=== PATIENT | female | born 1945 | race Caucasian/White ===

== ENCOUNTER → 2018-03-29 16:52 | Outpatient (CLI) | payer MEDICARE, SELFPAY | PROVIDERS: Family Provider Internal Medicine; PCP Internal Medicine; Visit Provider Otolaryngology Otolaryngology/Facial Plastic Surgery | DX: J02.9 Acute pharyngitis, unspecified (principal) | CPT/HCPCS: 87070; 87077; 87186 ==

== ENCOUNTER → 2018-05-05 15:48 | Outpatient (CLI) | payer MEDICARE, OTHER, SELFPAY ==
[2018-05-05 11:59] LABS: Absolute Lymphocyte Count 1.93 X10^3/ul (0.83-4.51); Absolute Neutrophil Count 4.3 X10^3/uL (2.0-7.7); Basophil# 0.02 X10^3/uL; Basophil% 0.3 % (0-1); Eosinophil# 0.03 X10^3/uL; Eosinophils% 0.4 % (0-5); Hematocrit 43.1 % (37-47); Lymphocyte # 1.93 X10^3/ul (4.0); Lymphocyte % 28.3 % (19-41); Mean Corp Hgb Conc 32.5 g/gl (32-36); Mean Corpuscular Volume 95.6 fL (81-99); Monocyte% 7.3 % (0-10); Neutrophil # 4.33 X10^3/uL (2.7-7.7); Neutrophil % 63.6 % (47-70); Platelet Count 238 K/mm3 (150-450); RBC Distribution Width CV 14.6 % (11.6-14.6); RBC Distribution Width SD 49.3 fl (35.1-43.9); Red Blood Count 4.51 M/mm3 (4.2-5.4); White Blood Count 6.8 K/mm3 (4.4-11.0)
[2018-05-05 12:00] LABS: POSITIVE COUNT NO; POSITIVE DIFFERENTIAL NO; POSITIVE MORPHOLOGY NO
[2018-05-05 12:21] LABS: Erythrocyte Sedimentation Rate 17 mm/hr (0-30)
[2018-05-05 12:32] LABS: CRP < 2.90 mg/L (0.0-3.0)
[2018-05-05 16:06] LABS: CREATININE FINGERSTICK 0.7 mg/dL (0.55-1.02); EGFR FINGERSTICK > 60.0000 mL/min (>60)
== END ==
PROVIDERS: Family Provider Internal Medicine; PCP Internal Medicine; Visit Provider Specialist
DX: H92.01 Otalgia, right ear (principal); R13.10 Dysphagia, unspecified; Z96.651 Presence of right artificial knee joint
CPT/HCPCS: 36415; 70491; 85025; 85652; 86140; Q9967

== ENCOUNTER → 2018-05-16 09:38 | Outpatient (CLI) | payer MEDICARE, OTHER, SELFPAY ==
[2018-05-16 11:11] LABS: Hematocrit 41.9 % (37-47); Hemoglobin 13.7 g/dl (12.0-15.0); Mean Corp Hgb Conc 32.7 g/gl (32-36); Mean Corpuscular Hgb 31.5 pg (27.0-32.0); Mean Corpuscular Volume 96.3 fL (81-99); Mean Platelet Vol. 10.2 fl (6.2-12.0); Platelet Count 212 K/mm3 (150-450); RBC Distribution Width CV 14.6 % (11.6-14.6); RBC Distribution Width SD 49.7 fl (35.1-43.9); Red Blood Count 4.35 M/mm3 (4.2-5.4); White Blood Count 5.8 K/mm3 (4.4-11.0)
[2018-05-16 11:22] LABS: Scan Indicated on CBC? Y/N NO
[2018-05-16 11:43] LABS: Anion Gap 11 (5-15); BUN 17 mg/dL (7-18); BUN/Creat Ratio 27.7 RATIO (10-20); Chloride 105 mmol/L (98-107); Creatinine, Serum 0.61 mg/dL (0.55-1.02); EST Glomerular Filtration Rate 102 mL/min (>60); Est Glom Filt Rate - Afr Amer 123 mL/min (>60); Glucose 87 mg/dL (74-106); Potassium 3.9 mmol/L (3.5-5.1); Sodium Level 144 mmol/L (136-145)
== END ==
PROVIDERS: Family Provider Internal Medicine; PCP Internal Medicine; Visit Provider Otolaryngology
DX: Z01.818 Encounter for other preprocedural examination (principal)
CPT/HCPCS: 36415; 80048; 85027; 93005

== ENCOUNTER → 2018-05-22 08:56 | Outpatient (CLI) | payer MEDICARE, OTHER, SELFPAY ==
--- NOTE | 2018-05-22 | IMM_PTH ---
PATIENT: KENRICK ORTIZ LOC: [facility] U#:[id number] AGE/SX: 79/F ROOM: RE05/22/[address]: Dr. Caden Yeboah MD : 1945 BED: DIS: SPEC #: [id number] RECD: 05/23/18 14:35 STATUS: JULIAN LILIAN #: [id number] PHANI: 05/22/18 00:[address]: Caden Yeboah DEPT: IMMUNOHISTOCHEMISTRY RECD BY: Martha Barragan ENTERED: 05/23/18 14:36 SP TYPE: IMMUNO OTHR DR: Dr. Rusty Woodard MD Tissues: A - Tonsil, NOS Procedures: p16 (initial) PHYSICIAN & INSTITUTION [place] [id number] SPECIMEN INFORMATION: Tissue Source: A - Right tonsil Clinical Info: Pain in throat, right ear pain, hypertrophy of tonsils Specimen Number: [id number] CPT code: 15698 METHODOLOGY: Deparaffinized sections of prefer/formalin-fixed tissue or PAP/DQ stained slides are incubated with monoclonal/polyclonal antibodies/oligonucleotide probes. Localization is made via biotin free immunoperoxidase method. Appropriate controls are performed and reacted as expected. Results on target cell population are indicated in the following table: RESULTS: ANTIBODY / CLONE RESULT Block A P16 (E6H4) positive, block staining These tests were developed and their performance characteristics determined by [facility]. They may not have been cleared or approved by the U.S. Food and Drug Administration. The FDA has determined that such clearance or approval is not necessary. INTERPRETATION: A. Right tonsil: Invasive squamous cell carcinoma. SJ:hong 05/24/18
--- NOTE | 2018-05-22 08:56 | TONS_PTH ---
PATIENT: KENRICK ORTIZ LOC: [facility] U#:[id number] AGE/SX: 79/F ROOM: RE05/22/[address]: Dr. Caden Yeboah MD : 1945 BED: DIS: SPEC #: [id number] RECD: 05/22/18 10:01 STATUS: JULIAN HELTONIdania #: [id number] PHANI: 05/22/18 08:[address]: Caden Yeboah DEPT: SURGICAL PATHOLOGY RECD BY: Brooke Dubose ENTERED: 05/22/18 11:01 SP TYPE: TONSILS OTHR DR: Dr. Rusty Woodard MD [facility] Tissues: A - Tonsil, NOS B - Tonsil, NOS Procedures: Surgery Specimen Level III Surgery Specimen Level IV HEADER OPERATION: Tonsillectomy PRE-OP DIAGNOSIS: Pain in throat, right ear pain, hypertrophy of tonsils TISSUE SUBMITTED: A. Right tonsil, B. Left tonsil MICROSCOPIC DIAGNOSIS A. Right tonsil: Invasive moderately differentiated squamous cell carcinoma. See comment. B. Left tonsil: Reactive lymphoid hyperplasia. SJ:rg 05/23/18 COMMENT A. Results of immunohistochemistry ([id number]) for surrogate HPV marker (p16) will be reported separately. This case is discussed with Dr. Caden Yeboah on 05/23/18. MICROSCOPIC DESCRIPTION Slides are reviewed. GROSS DESCRIPTION A - Received in formalin labeled with the patient's name and designated right tonsil. The specimen consists of a tonsil that weighs 1.7 gm. The specimen is received in multiple pieces and measures in aggregate 2 x 1 x 1 cm. The external surface is pink-mccall, smooth, glistening and somewhat lobulated. Focally it is hemorrhagic, granular and bears cautery artifact. Serial cross sections through the tonsil do not reveal any mass lesions. The entire specimen is submitted in one cassette. B - Received in formalin labeled with the patient's name and designated left tonsil. The specimen consists of a tonsil that weighs 1.4 gm and measures 2 x 1 x 1 cm. The external surface is pink-mccall, smooth, glistening and somewhat lobulated. Focally it is hemorrhagic, granular and bears cautery artifact. Serial cross sections through the tonsil reveal normal tonsillar architecture. The entire specimen is submitted in one cassette. / SJ:rg 05/22/18 TC:0 CPT: 56899, 59383
== END ==
PROVIDERS: Family Provider Internal Medicine; PCP Internal Medicine; Visit Provider Otolaryngology
DX: J35.1 Hypertrophy of tonsils (principal); J02.9 Acute pharyngitis, unspecified; H92.01 Otalgia, right ear
CPT/HCPCS: 88304; 88305; 88342

== ENCOUNTER → 2018-06-05 09:12 | Outpatient (CLI) | payer MEDICARE, OTHER, SELFPAY ==
--- NOTE | 2018-06-05 06:59 | PET_ITS ---
EXAMINATION: FDG PET CT INDICATIONS: A 72-year-old female with history of head and neck carcinoma presenting for initial staging examination. COMPARISON EXAMINATION: CT of the neck report dated 05/04/18. INDEX LESION SIZE SUV INTERPRETATION Right pharyngeal mucosal space, palatine tonsil 15.0 mm x 18.9 mm (frame 238) 7.8 Most consistent with site of histologically confirmed primary head and neck malignancy-normal postsurgical change in the setting of clear histopathologic margins TECHNIQUE: Following the intravenous administration of 15.02 mCi of F-18 deoxyglucose via the left antecubital fossa, multiplanar image acquisitions of the neck, chest, abdomen and pelvis to level of mid thigh, obtained at one hour post radiopharmaceutical administration contemporaneously interpreted with the current CT of the neck, chest, abdomen and pelvis to level of mid thigh, dated 06/05/[address] of the neck report dated 05/04/18 reveal: SERUM GLUCOSE LEVEL: 64 mg/dl. HEIGHT: 63 inches. WEIGHT: 142 lbs. FINDINGS: 1. Asymmetric increased glucose metabolism is defined in the right pharyngeal mucosal space in the region of the tonsillar pillar-palatine tonsil. The calculated maximum standard uptake value is 7.8. The maximal axial diameter of the corresponding metabolic abnormality on review of CT of the head-neck dated 06/05/18 is 15.0 mm (transverse) x 18.9 mm (AP). 2. Normal physiologic distribution of the radiopharmaceutical is apparent in the hepatic (2.6) and splenic parenchyma, both renal units, bladder and visualized intestinal tract. There is uniform distribution of the radiopharmaceutical concentration defined in the visualized cerebellar hemispheres and cerebral cortical structures.? Diffuse intestinal tract activity is noted throughout all four quadrants of the abdominal-pelvic retroperitoneum, mesentery consistent with normal physiologic distribution of the radiopharmaceutical. Prominent glucose metabolism is defined in the ascending and descending thoracic, as well as abdominal aorta. An increase in glucose metabolism is manifest in the left pharyngeal mucosal space, tonsillar pillar most consistent with physiologic distribution of the radiopharmaceutical. Focal increased glucose concentration is defined in the right proximal humeral metaphysis-humeral head, which appears to correspond to subchondral bone cyst formation. Pertinent CT findings are as follows. CHEST: Emphysematous change is noted in the bilateral upper lung zones. There are no parenchymal densities-nodules noted in the right-left hemithorax demonstrating discernible, quantitatively significant increased glucose metabolism. Right-left axillary soft tissue densities demonstrate no evidence of facilitated glucose uptake. Atherosclerotic calcification is defined in the thoracic aorta without evidence of dilatation, aneurysm formation. ABDOMEN AND PELVIS: Atherosclerotic calcification is defined in the abdominal aorta without evidence of dilatation, aneurysm formation. Pelvic arterial calcification is observed. Colonic diverticulosis is defined. Apparent postsurgical change is noted in the lower pelvic mesentery without evidence of quantitatively significant increased glucose metabolism. Right-left inguinal soft tissue densities are ametabolic. The uterus appears surgically absent. SKELETAL: Degenerative changes defined in the cervical, thoracic and lumbar spine demonstrate no evidence for glucose hypermetabolism. PET/PET/CT Tumor Base -Thigh Init IMPRESSION: 1. Increased glucose concentration observed in the right pharyngeal mucosal space, distribution of the palatine tonsil is most consistent with postsurgical change in the setting of presumed clear histopathologic margins. 2. Prominent glucose concentration observed in the ascending and descending thoracic, as well as abdominal aorta is commensurate with activated leukocytes associated with atherosclerotic plaque formation. (Gabbie et al, Clinical Nuclear Medicine 29:93, 2004). 3. No other quantitatively significant hypermetabolic abnormalities are defined. There is no definitive scintigraphic evidence of distant metastatic disease. Electronic Signature Sean Wing D.O. Electronically Signed: Sean Wing DO at 23:45 EDT Tel , Service support ,
== END ==
PROVIDERS: Family Provider Internal Medicine; PCP Internal Medicine; Visit Provider Otolaryngology
DX: C09.9 Malignant neoplasm of tonsil, unspecified (principal)
CPT/HCPCS: 78815; A9552

== ENCOUNTER → 2018-06-22 12:03 | Outpatient (CLI) | payer MEDICARE, OTHER, SELFPAY ==
[2018-06-22 13:21] LABS: Absolute Lymphocyte Count 1.62 X10^3/ul (0.83-4.51); Absolute Neutrophil Count 5.2 X10^3/uL (2.0-7.7); Basophil# 0.03 X10^3/uL; Basophil% 0.4 % (0-1); Eosinophil# 0.05 X10^3/uL; Eosinophils% 0.7 % (0-5); Hematocrit 43.9 % (37-47); Hemoglobin 14.3 g/dl (12.0-15.0); Lymphocyte # 1.62 X10^3/ul (4.0); Lymphocyte % 21.7 % (19-41); Mean Corp Hgb Conc 32.6 g/gl (32-36); Mean Corpuscular Hgb 31.4 pg (27.0-32.0); Mean Corpuscular Volume 96.5 fL (81-99); Mean Platelet Vol. 10.3 fl (6.2-12.0); Monocyte# 0.57 X10^3/uL; Monocyte% 7.6 % (0-10); Neutrophil # 5.18 X10^3/uL (2.7-7.7); Neutrophil % 69.5 % (47-70); Platelet Count 250 K/mm3 (150-450); RBC Distribution Width CV 14.4 % (11.6-14.6); RBC Distribution Width SD 50.2 fl (35.1-43.9); Red Blood Count 4.55 M/mm3 (4.2-5.4); White Blood Count 7.5 K/mm3 (4.4-11.0)
[2018-06-22 13:22] LABS: POSITIVE COUNT NO; POSITIVE DIFFERENTIAL NO; POSITIVE MORPHOLOGY NO
[2018-06-22 13:45] LABS: Creatinine, Serum 0.58 mg/dL (0.55-1.02); EST Glomerular Filtration Rate 109 mL/min (>60); Est Glom Filt Rate - Afr Amer 132 mL/min (>60)
== END ==
PROVIDERS: Family Provider Internal Medicine; PCP Internal Medicine; Referring Provider Radiology Radiation Oncology; Visit Provider Radiology Radiation Oncology
DX: Z01.818 Encounter for other preprocedural examination (principal); C02.4 Malignant neoplasm of lingual tonsil
CPT/HCPCS: 36415; 82565; 85025

== ENCOUNTER → 2018-06-23 08:34 | Outpatient (CLI) | payer MEDICARE, OTHER, SELFPAY ==
--- NOTE | 2018-06-23 08:40 | CT_ITS ---
STUDY: CT SOFT TISSUE NECK WITH AND WITHOUT CONTRAST REASON FOR EXAM: Female, 72 years old. History of squamous cell tonsillar cancer. Radiation therapy planning. RADIATION DOSAGE (If Supplied By Facility): CTDIvol = ( 9.34 ) mGy, DLP = ( 693.20 ) mGycm TECHNIQUE: The patient was scanned in a multi-detector CT scanner. High resolution transaxial imaging was performed prior to and following intravenous administration of 75ML ml of Isovue 300 contrast material. Only axial images were obtained. The examination was performed for radiation therapy planning and therefore is limited. Individualized dose optimization techniques were used for this CT. COMPARISON: 05/05/2018. FINDINGS: Normal bilateral parotid glands. Normal bilateral party host spaces. Normal bilateral parapharyngeal spaces. Normal bilateral carotid spaces. Normal bilateral sublingual and submandibular glands and spaces. Normal visualized nasopharynx. Normal retropharyngeal space. Normal perivertebral space. Minimal prominence of the right oral tonsil compared to the left side but no focal mass is definitely seen. The visualized tongue, tongue base and oropharynx are normal. There is no demonstrated adenopathy on the axial images. The epiglottis appears to be unremarkable. The region of the larynx is grossly unremarkable. Normal subglottic trachea. Normal bilateral lobes of the thyroid gland. Visualized lung apices demonstrate no focal lesion. Normal visualized paranasal sinuses. CT/Soft Tissue Neck W/WO Contrast IMPRESSION: Limited examination obtained for radiation therapy planning. Mild asymmetric prominence of the right oral tonsil compared to the left side. Electronically Signed: Sivakumar Marie MD at 9:11 EDT Tel , Service support ,
== END ==
PROVIDERS: Family Provider Internal Medicine; PCP Internal Medicine; Referring Provider Radiology Radiation Oncology; Visit Provider Radiology Radiation Oncology
DX: C02.4 Malignant neoplasm of lingual tonsil (principal)
CPT/HCPCS: 70492; Q9967

== ENCOUNTER → 2018-07-17 09:57 | Outpatient (CLI) | payer MEDICARE, OTHER, SELFPAY ==
[2018-07-17 11:25] LABS: Absolute Lymphocyte Count 0.68 X10^3/ul (0.83-4.51); Absolute Neutrophil Count 4.3 X10^3/uL (2.0-7.7); Basophil# 0.02 X10^3/uL; Basophil% 0.4 % (0-1); Eosinophil# 0.06 X10^3/uL; Eosinophils% 1.1 % (0-5); Hematocrit 42.8 % (37-47); Hemoglobin 13.9 g/dl (12.0-15.0); Lymphocyte # 0.68 X10^3/ul (4.0); Mean Corp Hgb Conc 32.5 g/gl (32-36); Mean Corpuscular Hgb 31.4 pg (27.0-32.0); Mean Corpuscular Volume 96.8 fL (81-99); Mean Platelet Vol. 10.3 fl (6.2-12.0); Monocyte# 0.57 X10^3/uL; Monocyte% 10.1 % (0-10); Neutrophil # 4.33 X10^3/uL (2.7-7.7); Neutrophil % 76.2 % (47-70); Platelet Count 218 K/mm3 (150-450); RBC Distribution Width SD 48.9 fl (35.1-43.9); Red Blood Count 4.42 M/mm3 (4.2-5.4); White Blood Count 5.7 K/mm3 (4.4-11.0)
[2018-07-17 11:31] LABS: POSITIVE COUNT NO; POSITIVE DIFFERENTIAL NO; POSITIVE MORPHOLOGY NO
== END ==
PROVIDERS: Family Provider Internal Medicine; PCP Internal Medicine; Referring Provider Radiology Radiation Oncology; Visit Provider Radiology Radiation Oncology
DX: C09.9 Malignant neoplasm of tonsil, unspecified (principal)
CPT/HCPCS: 36415; 85025

== ENCOUNTER → 2018-08-07 09:34 | Outpatient (CLI) | payer MEDICARE, OTHER, SELFPAY ==
[2018-08-07 10:35] LABS: Absolute Lymphocyte Count 0.37 X10^3/ul (0.83-4.51); Absolute Neutrophil Count 4.2 X10^3/uL (2.0-7.7); Basophil# 0.01 X10^3/uL; Basophil% 0.2 % (0-1); Differential Indicated SCAN CRITERIA MET; Eosinophil# 0.04 X10^3/uL; Eosinophils% 0.8 % (0-5); Hematocrit 43.5 % (37-47); Hemoglobin 14.3 g/dl (12.0-15.0); Lymphocyte # 0.37 X10^3/ul (4.0); Lymphocyte % 7.3 % (19-41); Mean Corp Hgb Conc 32.9 g/gl (32-36); Mean Corpuscular Hgb 31.4 pg (27.0-32.0); Mean Corpuscular Volume 95.6 fL (81-99); Mean Platelet Vol. 9.5 fl (6.2-12.0); Monocyte# 0.53 X10^3/uL; Monocyte% 10.4 % (0-10); Neutrophil # 4.15 X10^3/uL (2.7-7.7); Neutrophil % 81.3 % (47-70); POSITIVE COUNT NO; POSITIVE DIFFERENTIAL YES; POSITIVE MORPHOLOGY NO; Platelet Count 207 K/mm3 (150-450); RBC Distribution Width CV 13.7 % (11.6-14.6); RBC Distribution Width SD 47.5 fl (35.1-43.9); Red Blood Count 4.55 M/mm3 (4.2-5.4); White Blood Count 5.1 K/mm3 (4.4-11.0)
== END ==
PROVIDERS: Family Provider Internal Medicine; PCP Internal Medicine; Referring Provider Radiology Radiation Oncology; Visit Provider Radiology Radiation Oncology
DX: C02.4 Malignant neoplasm of lingual tonsil (principal)
CPT/HCPCS: 36415; 85025

== ENCOUNTER → 2018-11-27 09:34 | Outpatient (CLI) | payer MEDICARE, OTHER, SELFPAY ==
--- NOTE | 2018-11-27 07:03 | PET_ITS ---
EXAMINATION: FDG PET CT INDICATIONS: A 73-year-old female with history of head and neck carcinoma presenting for restaging examination. COMPARISON EXAMINATION: Previous FDG PET study report dated 06/05/18, CT of the neck report dated 06/23/18. TECHNIQUE: Following the intravenous administration of 15 mCi of F-18 deoxyglucose, multiplanar image acquisitions of the neck, chest, abdomen and pelvis to level of mid thigh, obtained at one hour post radiopharmaceutical administration contemporaneously interpreted with the current CT of the neck, chest, abdomen and pelvis to level of mid thigh, dated 11/27/18 via coregistration and prior-previous FDG PET study report dated 06/05/18 reveal: FINDINGS: 1. There is no quantitative scintigraphic evidence of abnormal increased glucose metabolism on meticulous inspection of whole body acquisitions to include all three axis reconstructions. 2. Normal physiologic distribution of the radiopharmaceutical is apparent in the hepatic and splenic parenchyma, both renal units, bladder and visualized intestinal tract. There is symmetric and preserved glucose metabolism noted in the visualized portion of the frontal, occipital, temporal and parietal lobes of the cerebral cortex, as well as cerebral hemispheres and basal ganglia. Diffuse intestinal tract activity is noted throughout all four quadrants of the abdominal-pelvic retroperitoneum, mesentery consistent with normal physiologic distribution of the radiopharmaceutical. The previously identified hypermetabolic focus noted at the level of the right pharyngeal mucosal space defined on the FDG PET study report dated 06/05/18 is no apparent on the current examination. The prior defined morphologic-anatomic changes noted on CT of the neck, chest, abdomen and pelvis manifest on the FDG PET CT study report dated 06/05/18 are essentially unchanged on the present examination. PET/PET/CT Tumor Base -Thigh Subs IMPRESSION: 1. NEGATIVE EXAMINATION. There is no definitive quantitative scintigraphic evidence of recurrent-metastatic viable neoplasm. 2. There is interim metabolic resolution of the prior defined right pharyngeal space hypermetabolic focus. 3. Overall, compared to the previous FDG PET CT study report dated 06/05/18, there is current absence of defined viable neoplastic disease with an interim quantitative complete metabolic response relating to the previously defined right pharyngeal mucosal space hypermetabolic focus. Electronic Signature Sean Wing D.O. Electronically Signed: Sean Wing DO at 23:25 EDT Tel , Service support ,
== END ==
PROVIDERS: Family Provider Internal Medicine; PCP Internal Medicine; Referring Provider Otolaryngology; Visit Provider Otolaryngology
DX: Z85.818 Personal history of malignant neoplasm of other sites of lip, oral cavity, and pharynx (principal)
CPT/HCPCS: 78815; A9552

== ENCOUNTER → 2019-06-15 06:39 | Outpatient (CLI) | payer MEDICARE, OTHER, SELFPAY ==
--- NOTE | 2019-06-15 13:14 | STRESSREP ---
Stress Test Report Date: 06/15/2019 Procedure: Pharmacologic stress nuclear imaging study Indications: Preop evaluation, abnormal EKG Consent: Per the patient Procedure: The patient underwent pharmacologic (Regadenoson) evaluation with a peak heart rate of 99 beats per minute (67 %predicted maximal heart rate) and a peak blood pressure of 132/68 mmHg. The baseline ECG demonstrated normal sinus rhythm, left atrial enlargement, nonspecific ST-T changes. EKG during lexiscan infusion revealed no significant ischemic changes. EKG post infusion revealed no significant ischemic changes [There were no cardiac dysrhythmias pretest, during pharmacologic infusion, or recovery]. [There was no complaint of chest discomfort during pharmacologic infusion or recovery]. The examination was discontinued secondary to completion of protocol. Impression: 1. Lexiscan stress test test is negative for Lexiscan infusion induced EKG changes of ischemia. 2. Lexiscan stress test test is negative for Lexiscan infusion induced chest pain. 3. Results of the nuclear portion of the test is as below Myocardial perfusion imaging study: Technique: The patient was injected with 12 millicuries of technetium 99m Cardiolite and subsequently rest SPECT Cardiolite nuclear imaging was obtained in the horizontal long, vertical long, and short axis views. The patient underwent pharmacologic (Regadenoson) evaluation. Please see above for details. The patient was injected with 34 millicuries of technetium 99m Cardiolite and subsequently stress SPECT Cardiolite nuclear imaging was obtained in the horizontal long, vertical long, and short axis views. A gated Cardiolite study at peak stress was obtained. Interpretation: Rest and stress SPECT Cardiolite nuclear imaging status post realignment, normalization, and attenuation correction demonstrate mildly decreased radioisotope uptake in the apex on both the rest and stress images. There is extracardiac uptake adjacent to the inferior wall in both the rest and stress images. Gated images reveal no significant regional wall motion abnormalities. The reported LVEF is greater than 70 %. Impression: 1. There is no evidence of significant ischemia or infarction. 2. Estimated ejection fraction is greater than 70%. This note was generated with [employer] software. It may contain incorrect words, spelling, and punctuation that were not noted in checking the note before signing.
== END ==
PROVIDERS: Family Provider Internal Medicine; PCP Internal Medicine; Referring Provider Internal Medicine; Visit Provider Internal Medicine
DX: Z01.818 Encounter for other preprocedural examination (principal); R94.31 Abnormal electrocardiogram [ECG] [EKG]
CPT/HCPCS: 78452; 93017; A9500; A4216; J2785

== ENCOUNTER 2019-08-01 09:13 | Inpatient (IN) | payer MEDICARE, OTHER, SELFPAY ==
--- NOTE | 2019-07-20 11:51 | PCM.HP.BLA ---
History and Physical History and Physical Patient Name: Deborah Mathis : 1945 From: JOAO VALERA PA-C DATE OF SURGERY: 08/01/2019 SCHEDULED PROCEDURE: revision right total knee arthroplasty HISTORY OF PRESENT ILLNESS: Preoperative history and physical exam was performed on July 20, 2019. This is a 73-year-old female who presents today with continued right knee pain. She has been having pain for the past several years. Patient has had a previous right total knee arthroplasty by Dr. Pa January 29, 2005 followed by a revision surgery in April 29, 2014 for polyethylene exchange due to fractured polyethylene. Patient was going to proceed with revision surgery last year but was diagnosed with cancer and underwent treatment. She is in remission. Patient did have throat cancer in which surgery and radiation was done. Patient states her pain has been constant, aching, sharp, stabbing, sore. Walking increases her pain. She continues to have symptoms of instability and malalignment of the knee. Patient feels unsafe walking due to the instability. She has stumbled secondary to her right knee pain. She has tried rest, heat, elevation with no relief in symptoms. After failing conservative measures and discussing treatment options with Dr. Brodie Humphreys, the patient does wish to proceed with a revision right total knee arthroplasty. Patient currently denies any chest pain, shortness of breath, fevers chills, recent infections. She does have significant history pertinent for asthma, emphysema, throat cancer in remission, diverticulitis, irritable bowel syndrome, lipodermatosclerosis. We have obtain surgical clearance from patient's primary care physician Dr. Woodard. REVIEW OF SYSTEMS: ROS: Const: Denies anorexia, anxiety, change in appetite, fever and weight change,hard of hearing, and vision problems. CV: Denies chest pain, heart murmur, irregular heartbeat and peripheral vascular disease. Resp: Reports asthma and SOB with minimal activity, but denies cough, pneumonia, sleep apnea, SOB, tuberculosis and wheezing. GI: Denies constipation, diarrhea, heartburn, nausea, bloody stools and vomiting, and difficulty swallowing. : Genital:. (F Genital Sx) Urinary: denies incontinence. Musculo: Reports leg swelling, but denies trouble walking and weakness and limp. Skin: Reports history of shingles and tattoo, but denies Raynaud's. Neuro: Denies ambulatory dysfunction, dizziness, numbness/tingling and tremor. Psych: Denies anxiety, depression, insomnia, mental illness and stress. Binu/Lymph: Reports bleeding/bruising tendency, but denies anemia and past transfusion. Reviewed, no changes. PAST MEDICAL HISTORY: Advance Care Plan: Other Directive, LIVING WILL Effective Date: 12/29/2017 Other Directive, POA Effective Date: 01/04/2019 PMH: Medical Problems: Arthritis, Asthma, Emphysema, Hiatal Hernia, Diverticulitis, I.B.S., Mitral Valve Leak, Hemorrhoids, Frat. Nerve Damage, Liver Cyst ?, Spastic Bladder, Cellulitis, Subcutaneous Septal Thickening W/ Mild Dermal Fibrosis, Lipodermatosclerosis Cancer - THROAT Accidents: None Surgical Hx: Gallbladder - 1972 [facility] Hysterectomy - 1986 [facility] Tubal Ligation - 1980 [facility] Colon Surgery - 2005 [facility] Ruptured Tubal - 1981 [facility] Collapsed Lung - 1984 [facility] Scar Tissue - 1982 [facility] Knee Replacement - RT- [address] [facility] [address] Pa Erythema Nodosum Surgery - (07/25/2008) Arthroscopy, Shoulder, Right - 09/27/08 [facility] KARAN Rectal Prolasps - 02/2009 Double Hernia SX 7-11 [facility] LT TKR - (04/17/2012) KARAN @ [facility] RT Total Knee Revision - (04/29/2014) KARAN @ [facility] Veins Stripped, Tonsillectomy Anesthesia Complications: None Assistive Devices: Glasses, Dentures Reviewed, no changes. SOCIAL HISTORY: SH: Marital: .Occupation: Retired.Work Status: Retired.Hand Dominance: Right-handed. Personal Habits: Smoking: Patient is a former smoker.Cigarette Use: Former.Alcohol: Denies use.Drug Use: Denies Use.Enjoy Exercising: Never Exercises. Reviewed, no changes. VITALS: Ht: 63 Wt: 127lb Wt k.607 BMI: 22.5 BP: 138/74 Pulse: 72 Resp: 16 T: 97.8 T: 36.6C ALLERGIES: No Known Drug Allergy MEDICATIONS: Oxybutynin Chloride ER 10 mg 1 by mouth every day, Aspirin 81 Low Dose 81 mg, Centrum Silver 50+Women 50+Women, Omeprazole 20 mg 1 by mouth every day, Levothyroxine Sodium 25 mcg 1 by mouth every day, Montelukast Sodium 10 mg 1 by mouth every day, Calcium + D3 600-200 1po qday, Vitamin D3 400 Unit 2po qday, Horse [place] 300 mg 1po qday, Tylenol Extra Strength 500 mg 2 by mouth every 8 hours, Proair HFA 108 (90 Base) mcg/Act prn PRE-OP EXAM: General appearance:NORMAL Other: Eyes: Conjunctivae and lids: NORMAL Pupils: ERR Ears, Nose, Mouth, and Throat: NORMAL Other: Inspection of lips, teeth and gums: NORMAL Other: Neck: Examination of neck: no masses noted. Respiratory: Assessment of respiratory effort: NORMAL Other: Auscultation of lungs: clear to auscultation no wheezes, rhonchi or rales. Cardiovascular: Auscultation of heart: regular rate and rhythm, no murmurs, gallops or rubs. Gastrointestinal: Exam of abdomen: soft, nontender, nondistended bowel sounds present. PHYSICAL EXAMINATION: Patient does walk with an antalgic gait. Right knee is cool to touch without erythema. Previous incisions are without edema or signs of infection. No significant effusion. Patient does have valgus alignment and episodes of instability. Range of motion right knee: 0 of extension to 120 flexion IMAGING STUDIES: Previous x-rays show a stable fixation of her right total knee replacement with valgus alignment IMPRESSION: 1. Painful right total knee arthroplasty 2. Asthma 3. Emphysema 4. Hiatal hernia 5. Diverticulitis 6. Irritable bowel syndrome 7. History hemorrhoids 8. Low back pain 9. Spastic bladder 10. Lipodermatosclerosis 11. History of throat cancer in remission 12. Gastroesophageal reflux disease PLAN: Dr. Brodie Humphreys did discuss and review with the patient all treatment options including surgical versus nonsurgical options. Patient does wish to proceed with the above-stated procedure. Potential risks, benefits, and complications of the procedure were discussed in detail including but not limited to , infection, nerve and blood vessel damage, persistent pain, numbness, tingling, paresthesias, blood clot, pulmonary embolism, and requirement for possible further surgery. The patient expressed full understanding and has no further questions for the doctor. Patient does agree to proceed with the above-stated procedure and has signed the surgery consent form. This dictation was created using voice recognition software. Phonetic and/or grammatical errors may exist. ___ I have re-examined the patient. There are no clinical changes since date of exam. ___ See progress notes for changes. ___ Dictated on admission Date: Time: Signature:
[2019-07-20 14:17] VITALS: BP 127/78; PULSE 59; RESP 16; TEMP 36.3; O2SAT 99; BMI 22.1
--- NOTE | 2019-07-20 14:23 | SDCEKG_ITS ---
Test Reason : Blood Pressure : / mmHG Vent. Rate : 056 BPM Atrial Rate : 056 BPM P-R Int : 166 ms QRS Dur : 088 ms QT Int : 426 ms P-R-T Axes : 054 011 043 degrees QTc Int : 411 ms Sinus bradycardia Septal infarct , age undetermined Abnormal ECG Confirmed by ELA ROSENBAUM, RENEE ([id number]), brands editor TOM PALUMBO ([id number]) on 07/24/2019 2:45:09 PM Referred By: Rusty Woodard Confirmed By:RENEE MAHMOOD MD
[2019-07-20 14:55] LABS: Absolute Lymphocyte Count 0.96 X10^3/uL (0.83-4.51); Basophil# 0.04 X10^3/uL; Basophil% 0.7 % (0-1); Eosinophil# 0.04 X10^3/uL; Eosinophils% 0.7 % (0-5); Hematocrit 44.2 % (37-47); Hemoglobin 14.4 g/dL (12.0-15.0); Lymphocyte # 0.96 X10^3/ul (4.0); Lymphocyte % 17.5 % (19-41); Mean Corp Hgb Conc 32.6 g/dL (32-36); Mean Corpuscular Hgb 33.3 pg (27.0-32.0); Mean Corpuscular Volume 102.1 fL (81-99); Mean Platelet Vol. 9.5 fl (6.2-12.0); Monocyte# 0.44 X10^3/uL; NRBC Flagged by Analyzer 0 % (0-5); Neutrophil # 4.01 X10^3/uL (2.7-7.7); Neutrophil % 72.9 % (47-70); Platelet Count 215 K/mm3 (150-450); RBC Distribution Width CV 14.3 % (11.6-14.6); RBC Distribution Width SD 54.4 fl (35.1-43.9); Red Blood Count 4.33 M/mm3 (4.2-5.4); White Blood Count 5.5 K/mm3 (4.4-11.0)
--- NOTE | 2019-07-20 15:05 | RAD_ITS ---
STUDY: X-RAY CHEST REASON FOR EXAM: Female, 73 years old. History of asthma. History of throat cancer. TECHNIQUE: PA and lateral views of the chest. COMPARISON: 09/03/2015. FINDINGS: There is hyperinflation of the lungs consistent with chronic obstructive lung disease (COPD). Otherwise lung quiñonez are clear. There is no demonstrated pleural abnormality. Normal size heart. Normal mediastinum and vi. Normal visualized pulmonary arteries. There is atherosclerotic calcification of the aortic arch with tortuosity. There are diffuse degenerative changes of the visualized thoracic spine. There is degenerative osteoarthritis of the bilateral shoulders. There is no demonstrated abnormality of the visualized soft tissue structures of the upper abdomen. RAD/Chest PA and Lateral IMPRESSION: No acute cardiopulmonary disease. Electronically Signed: Wandy Mcneill MD at 1:39 EST , Service support ,
[2019-07-20 15:15] LABS: AST(SGOT) 32 U/L (15-37); Alanine Aminotransfer ALT/SGPT 41 U/L (13-56); Albumin, Serum 4.4 g/dL (3.2-5.0); Alkaline Phosphatase 83 U/L (45-117); Anion Gap 7 (5-15); BUN 14 mg/dL (7-18); BUN/Creat Ratio 25.9 RATIO (10-20); Bilirubin, Direct 0.16 mg/dL (0.00-0.30); Calcium,Total 9.2 mg/dL (8.5-10.1); Chloride 105 mmol/L (98-107); Creatinine, Serum 0.54 mg/dL (0.55-1.02); EST Glomerular Filtration Rate 117 mL/min (>60); Est Glom Filt Rate - Afr Amer 142 mL/min (>60); Estimated Creatinine Clearance 43.27 ml/min; Globulin 2.9 g/dL (2.2-4.2); Glucose 81 mg/dL (74-106); Potassium 3.5 mmol/L (3.5-5.1); Protein, Total 7.3 g/dL (6.4-8.2); Sodium Level 141 mmol/L (136-145); Thyroid Stim Hormone (TSH) 6.73 uIU/mL (0.358-3.74)
[2019-07-20 15:41] LABS: Prothrombin Time (Protime)PT. 13.2 SECONDS (11.7-14.9)
[2019-07-20 15:44] LABS: Partial Thromboplast Time 26.1 Seconds (24.1-36.2)
[2019-08-01] VITALS (14 sets, daily range): BP systolic 90–132; BP diastolic 55–79; PULSE 65–105; RESP 16–18; TEMP 36.3–36.7; O2SAT 93–100; BMI 22.1
--- NOTE | 2019-08-01 07:04 | RAD_ITS ---
STUDY: X-RAY - RIGHT KNEE REASON FOR EXAM: Female, 73 years old. Postop total knee revision TECHNIQUE: 2 view(s) of the knee. COMPARISON: None. FINDINGS: Normal visualized distal femur. Normal visualized proximal tibia and fibula. Normal proximal tibiofibular articulation. Total knee arthroplasty in anatomic alignment. Normal medial femorotibial compartment. Normal lateral femorotibial compartment. Normal patellofemoral articulation. Gas is noted within the joint and subcutaneous tissues. Skin steph present in the midline anteriorly. RAD/Knee 1 or 2 Views IMPRESSION: Total knee arthroplasty Electronically Signed: Caden Cochran MD at 16:46 EST , Service support ,
[2019-08-01 09:46] LABS: Bedside Glucose 72 mg/dL (70-110)
[2019-08-01] MEDS: Lactated Ringers 1,000 ML 125 ML IV ×3 (10:03→18:00)
[2019-08-01] MEDS: Magnesium Sulfate 4gm/100mL 4 GM/100 ML IV.SOLN. IV (10:05)
[2019-08-01] MEDS: Gabapentin 600 MG Tablet PO (10:09)
[2019-08-01] MEDS: Acetaminophen 500 MG Tablet 1000 MG PO ×2 (10:09→21:48)
[2019-08-01] MEDS: Celecoxib 200 MG Capsule 400 MG PO (10:09)
[2019-08-01] MEDS: Cefazolin 2 GM in 0.9% Normal Saline 100 ML IV (12:07)
--- NOTE | 2019-08-01 14:20 | PCM.OPRPT ---
Report of Operation Date of Procedure: 08/01/19 Pre-Operative Diagnosis: Failed right total knee replacement, arthrofibrosis, polyethylene wear Post-Operative Diagnosis: Failed right total knee replacement, arthrofibrosis, polyethylene wear, aseptic loosening Surgery/Procedure Performed:: Revision right total knee replacement all components Description of Surgical Findings:: Stable knee, good patella tracking, quadriceps snip approach range management specialist: Stewart Gaming Type of Anesthesia:: General Anesthesiologist: Alejandro Castillo Special Medications: 2 g Ancef, 1 g TXA at incision, 1 g TXA closure, 10 mg Decadron, joint cocktail (5 mg Duramorph, 30 mL of 0.5% Ropivicaine, 1000 units of epinephrine, 30 mg of Toradol) Specimen's removed: 3 Separate specimens were sent to micrology Estimated Blood Loss (mL): 100 Fluids Replaced: 2 Liters crystalloid Description of Procedure: Implants used: Femur: Aziza triathlon size 2, 5 mm distal augments medially and laterally, 5 mm posterior augments medially and laterally, 15 x 100 mm cemented stem Tibia: Size 3 triathlon universal tibial baseplate with 15 x 50 mm cemented stem. Size C tibial cone Poly: 11 mm TS polyethylene Patella: [place]iza triathlon press-fit 35 mm patella Procedure: On the date of procedure patient's right lower extremity was marked in the preoperative area. The patient was then taken back to the operating room where the patient was placed on the table in the supine position. All bony prominences were identified a well-padded. Anesthesia assumed control of the C-spine and airway and remained controlled throughout the remainder of the procedure. A tourniquet was placed on the right upper thigh and the leg was prepped in a sterile fashion. The surgeon then scrubbed at this time. Upon reentering the room right lower extremity was draped in a standard orthopedic fashion. A timeout was then called and everyone agreed upon the side, the site, the procedure to be performed, patient's identity and antibiotics given. An Esmarch bandage was used to exsanguinate the extremity and the tourniquet was placed up to 250 mmHg with the knee in flexion. A midline skin incision was made using the previous incision and extending it proximally and distally to identify normal tissue planes. Medial and lateral flaps were developed appropriate releases. The standard medial parapatellar arthrotomy was made and the patella was subluxed laterally. At this time an aggressive synovectomy was performed re-creating the medial gutter first, then the suprapatellar pouch than the lateral gutter. Once this was completed the knee was flexed up an osteotome was used to remove the tibial polyethylene. The remainder of the synovium was debrided. The standard deep MCL release was done and the patella scar pad was resected and lateral releases were performed. Next our attention was directed to the femur. Wear flexible osteotomes and TPS saw were used to break up the implant cement interface. This was done both medially and laterally. After this is adequately lucent bone tamp was used to remove the femur component from the end of the bone. This was done with minimal bone loss. At this time attention was now directed towards the proximal tibia. Possible osteotome and TPS saw were then used to break up the proximal tibia implant interface and stacked osteotomes were used to remove the tibial implant. This was done with minimal bone loss. Our attention was then turned to the tibia where the intramedullary canal was reamed to 16mm and extramedullary tibial cutting guide was used to make the appropriate tibial cut 90 degrees from the mechanical axis. A drop estephania was then used to verify the cut. We then reamed for a size C tibial cone. Size E tibial cone trial was placed. A size 3 tibial base plate was selected. the knee was flexed and the tibial component was pinned into place and the boss reamer was used to ream the proximal medullary canal. The trial implant was impacted in its prepared position. Our attention was then turned back to the femur or the femur intramedullary canal was reamed to 17 mm. The size 2 trial cutting guide was put into place to the appropriate depth using the medial epicondyle. Distal and posterior cleanup cuts were made we knew we would need a distal 5 mm augment medially, and 5 mm augment laterally. We also knew we needed posterior augments 5 mm augment medially, and 5 mm augment laterally. The box cutting guide was then pinned into place and the box cut was made using a reciprocating saw. The appropriate trials were then placed on the femur and tibia. A trial polyethylene was trialed to ensure proper balancing and stability of the knee. Patella tracking, was then verified and corrected appropriately as needed. Our attention was then directed to the patella. The previous patella been removed. Bur was used to remove all excess cement. We then drilled for a 35 mm press-fit patella. Trial patella was placed and patellar tracking was again checked and deemed appropriate. Final components were verified and opened, 6 liters of normal saline were irrigated throughout the joint under low-pressure lavage. Then the cement was mixed in a vacuum. Aziza Simplex cement with tobramycin was used. The wound was copiously irrigated with normal saline. When the cement was ready the components were cemented into place starting with the tibia, femur we then press-fit the patella. The trial poly component was placed and the knee was placed in full extension. All excess cement was removed in the process. Once the cement had cured the tracking, alignment and balance were verified and a size 11 mm TS polyethylene component was placed. Once the final components were placed chlorhexidine lavage was used and the wound was copiously irrigated with normal saline solution and the remainder of the periarticular injection was given. The quadriceps snip was closed proximally at the ankle using #2 FiberWire the wound was closed in a layer medley fashion using #1 vicryl interrupted sutures for the arthrotomy, 2-0 interrupted Vicryl for the subcuticular layer and steph for final skin closure. A sterile compressive dressing was then placed. The patient was then awakened from anesthesia, transferred to the [place] and transferred to the PACU for recovery. Post op plan DVT ppx: ASA 81mg BID, thigh high compression stockings Follow up: in office in 2 weeks for wound check PT: to start POD #0 at hospital, outpatient PT should be arranged. My physician dental chairside assistant was a vital part of this case. He was important in appropriate retraction during the case, and protection of soft tissues during bony cuts. His intimate knowledge of the case and my steps aided in safe and expedient completion of the procedure as well as appropriate position of the leg during the case. He was also vital in assisting with closure under my direct supervision. Grafts/Implants Used: [place] triathlon - Complications No intraoperative complications - Admit VTE Documentation VTE Present on Admission: No VTE Mechan Device Prophylaxis: SCD's, Thigh High GRIS Hose VTE Pharm Prophylaxis ordered?: Yes
[2019-08-01] MEDS: oxyCODONE 5 MG Tablet PO (19:39)
[2019-08-01] MEDS: Cefazolin 1 GM/50 ML BAG IV (19:56)
[2019-08-01] MEDS: Senna/Docusate Sodium 1 Tablet 2 TABLET PO (21:48)
[2019-08-01] MEDS: Doxycycline 100 MG CAPSULE PO (21:48)
[2019-08-01] MEDS: Ketorolac 15 MG/ML Vial IV (21:53)
[2019-08-01] MEDS: Tolterodine Tartrate 2 MG CAP.SA PO (22:05)
[2019-08-02] MEDS: Lactated Ringers 1,000 ML 125 ML IV (02:16)
[2019-08-02] MEDS: oxyCODONE 5 MG Tablet PO ×4 (03:18→19:46)
[2019-08-02 03:21] VITALS: BP 97/59; PULSE 64; RESP 18; TEMP 36.4; O2SAT 96
[2019-08-02] MEDS: Cefazolin 1 GM/50 ML BAG IV (03:25)
[2019-08-02] MEDS: Levothyroxine 25 MCG TABLET PO (05:16)
[2019-08-02] MEDS: Acetaminophen 500 MG Tablet 1000 MG PO ×3 (05:16→21:43)
[2019-08-02] MEDS: 0.9% Saline Lock 10 ML Syringe IV ×2 (05:18→15:40)
[2019-08-02] MEDS: Ketorolac 15 MG/ML Vial IV ×2 (05:20→15:47)
[2019-08-02 06:24] LABS: Anion Gap 5 (5-15); BUN 15 mg/dL (7-18); Calcium,Total 8.5 mg/dL (8.5-10.1); Chloride 106 mmol/L (98-107); Creatinine, Serum 0.48 mg/dL (0.55-1.02); EST Glomerular Filtration Rate 133 mL/min (>60); Est Glom Filt Rate - Afr Amer 161 mL/min (>60); Estimated Creatinine Clearance 43.27 ml/min; Glucose 109 mg/dL (74-106); Hemoglobin 11.1 g/dL (12.0-15.0); Mean Corp Hgb Conc 32.6 g/dL (32-36); Mean Corpuscular Hgb 33.3 pg (27.0-32.0); Mean Corpuscular Volume 102.1 fL (81-99); Mean Platelet Vol. 9.7 fl (6.2-12.0); POSITIVE MORPHOLOGY YES; Platelet Count 171 K/mm3 (150-450); RBC Distribution Width SD 52.7 fl (35.1-43.9); Red Blood Count 3.33 M/mm3 (4.2-5.4); Sodium Level 140 mmol/L (136-145)
[2019-08-02 06:30] LABS: Scan Indicated on CBC? Y/N NO
[2019-08-02 07:37] VITALS: O2SAT 95
[2019-08-02] MEDS: Multivitamins,Ther W-Minerals Tablet 1 TABLET PO (08:36)
[2019-08-02] MEDS: Calcium Carb/Vitamin D 1 TABLET Tablet PO ×2 (08:36→17:31)
[2019-08-02] MEDS: Aspirin 81 MG TAB.CHEW PO ×2 (08:37→17:30)
--- NOTE | 2019-08-02 08:38 | PCM.PN.ORT ---
Subjective: The patient was sitting in bed upon examination. Patient denies any chest pain, shortness of breath, dizziness, lightheadedness, nausea or vomiting, or calf pain. Pain is controlled on medications. No adverse overnight events. Overall patient is doing well but does complain of some soreness in her right postoperative knee. Objective: Vital signs stable and afebrile. She has had some readings of low blood pressure but is asymptomatic Patient is able to plantarflex and dorsiflex actively. Sensation is intact to light touch to saphenous, sural, superficial and deep peroneal, and tibial distribution. Dressing is clean dry and intact. Negative Homans bilaterally, negative signs and symptoms of DVT. - Physical Exam Vitals/I&O's: Vital Signs Temp Pulse Resp BP Pulse Ox 97.6 F L 64 18 97/59 L 95 08/02/19 03:21 08/02/19 03:21 08/02/19 03:21 08/02/19 03:21 08/02/19 07:37 Oxygen Flow Rate (L/min) 1 Oxygen Delivery Method Room Air Weight: 58.6 kg Body Mass Index (BMI) 22.1 Intake and Output for Last 24 Hours 07/31/19 08/01/19 08/02/19 23:59 23:59 23:59 Intake Total 2734.17 / 2834.17 1662.50 / 1662.50 Balance 2734.17 / 2834.17 1662.50 / 1662.50 General: Alert, Oriented x3, Cooperative, No apparent distress Laboratory Results 08/01/19 09:39: POC Glucose 72 08/02/19 05:57: WBC 10.0, RBC 3.33 L, Hgb 11.1 L, Hct 34.0 L, MCV 102.1 H, MCH 33.3 H, MCHC 32.6, RDW Std Deviation 52.7 H, RDW Coeff of Burt 14.0, Plt Count 171, MPV 9.7 08/02/19 05:57: Sodium 140, Potassium 4.0, Chloride 106, Carbon Dioxide 29.0, Anion Gap 5, BUN 15, Creatinine 0.48 L, Estim Creat Clear Calc 43.27, Est GFR (MDRD) Af Amer 161, Est GFR (MDRD) Non-Af 133, BUN/Creatinine Ratio 31.0 H, Glucose 109 H, Calcium 8.5 Current Medications Acetaminophen (Tylenol) 1,[address] [facility] Last Admin: 08/02/19 05:16 Dose: 1,000 mg Documented by: Albuterol Sulfate (Ventolin Aerosols) 2.5 mg INHALATION Q4H PRN PRN PRN Reason: SOB &/OR WHEEZING Aspir[facility] ([facility], [facility]) [facility] Last Admin: 08/01/19 18:51 Dose: Not Given Documented by: Calcium/Vitamin D (Os-Bebeto 500mg + D) [facility] Last Admin: 08/01/19 18:50 Dose: Not Given Documented by: Doxycycline Monohydrate (Doxycycline) [address] [facility] Stop: 08/08/19 22:01 Last Admin: 08/01/19 21:48 Dose: 100 mg Documented by: Enteral Nutritional Formula (Ensure Surgery) [address] [facility] Last Admin: 08/01/19 18:50 Dose: Not Given Documented by: Famotidine (Pepcid) [address] [facility] Last Admin: 08/01/19 18:49 Dose: Not Given Documented by: Lactated Ringer's () 1,000 mls @ 125 mls/hr IV .Q8H [facility] Last Infusion: 08/02/19 07:06 Dose: Infused Documented by: Insulin Human Lispro (Humalog Debbiepen (Bkc)) 1 - 6 unit SC Q4H PRN PRN; Protocol PRN Reason: BG>/= 180, SEE PROTOCOL Ketorolac Tromethamine (Toradol) 15 mg IV Q6H PRN PRN PRN Reason: Pain Score 1-5/10 Stop: 08/03/19 07:04 Last Admin: 08/02/19 05:20 Dose: 15 mg Documented by: Levothyroxine Sodium (Synthroid) 25 mcg PO DAILY@0600 [facility] Last Admin: 08/02/19 05:16 Dose: 25 mcg Documented by: Meloxicam (Mobic) 7.[address] [facility] Montelukast Sodium (Singulair) [address] [facility] Last Admin: 08/01/19 18:50 Dose: Not Given Documented by: Morphine Sulfate () 2 - 4 mg IV Q2H PRN PRN PRN Reason: Pain Score 6-10/10 Morphine Sulfate () 2 - 4 mg IV Q2H PRN PRN PRN Reason: Pain Score 6-10/10 Multivitamins/Minerals (Multivitamin With Minerals) 1 tablet PO DAILY@0800 [facility] Ondansetron HCl (Zofran) 4 mg IV Q8H PRN PRN PRN Reason: NAUSEA Oxycodone HCl (Oxyir) 5 - 10 mg PO Q4H PRN PRN PRN Reason: Pain Score 4-10/10 Last Admin: 08/02/19 03:18 Dose: 5 mg Documented by: Pantoprazole Sodium (Protonix) [address] [facility] Promethazine HCl (Phenergan) 12.5 mg IM Q6H PRN PRN; Protocol PRN Reason: NAUSEA/VOMITING Senna/Docusate Sodium (Senokot-S, Isi-Colace) [address] [facility] Last Admin: 08/01/19 21:48 Dose: 2 tablet Documented by: Sodium Chloride () 10 - 40 ml IV UD PRN PRN Reason: SALINE FLUSH Last Admin: 08/02/19 05:18 Dose: 10 ml Documented by: Tolterodine Tartrate (Detrol La) [address] [facility] Last Admin: 08/01/19 22:05 Dose: 2 mg Documented by: Medical Necessity - Tobacco Use Smoking Status: Former smoker Tobacco Use: Non-smoker Assessment/Plan 1. S/P right revision total knee arthroplasty POD #1 2. Continue Pain Medications: Tylenol and OxyIR 3. DVT Prophylaxis: Aspirin 81 mg twice daily for 4 weeks postoperatively 4. PT/OT: Weightbearing as tolerated 5. H & H: 11.1/34.0, asymptomatic 6. Encouraged Incentive Spirometry 7. Continue antibiotics while following cultures: Currently on doxycycline 1 week postoperatively 8. Disposition: Plan will be for possible discharge home tomorrow and will schedule to begin outpatient physical therapy early next week. Patient states she has a friend that can take her to physical therapy appointments. Case management will be involved for setting up appointment.
[2019-08-02] MEDS: Ensure Surgery 237 ML LIQUID PO ×3 (08:39→17:32)
[2019-08-02 08:44] VITALS: BP 104/61; PULSE 88; RESP 18; TEMP 36.6; O2SAT 99
[2019-08-02] MEDS: Senna/Docusate Sodium 1 Tablet 2 TABLET PO ×2 (10:05→21:43)
[2019-08-02] MEDS: Famotidine 20 MG Tablet PO (10:06)
[2019-08-02] MEDS: Doxycycline 100 MG CAPSULE PO ×2 (10:06→21:43)
[2019-08-02] MEDS: Pantoprazole Sodium 20 MG Tablet PO (10:07)
[2019-08-02] MEDS: Montelukast 10 MG Tablet PO (10:07)
[2019-08-02] MEDS: Tolterodine Tartrate 2 MG CAP.SA PO (10:10)
--- NOTE | 2019-08-02 11:05 | CASEMGMT ---
SALLY HAMLIN Face to Face with patient for initial transition planning/care coordination assessment. SALLY HAMLIN introduced self and role at [facility]. Patient sitting in chair, alert and oriented. Patient willing to participate in assessment and is able to answer all questions appropriately. Care providers, pharmacy, and demographics verified. Patient wishes to discharge home and would like outpatient therapy setup at [facility]. Patient states she has no further needs or concerns at this time. CM to follow for discharge planning needs that may arise. PCP: Vance Specialists: SIVAKUMAR Fields Preferred [facility]acy: [facility] Insurance: [employer] Prescription Benefit: yes Living Will/HPOA: yes, sister Nadeen Pa LNOK: sister Living Arrangements: Patient lives alone in mobile home with ramp to enter the home. Patient was independent at home prior to surgery. Transportation: friend/neighbor DME/HHC: Patient has cane, walker, and shower chair at home. SALLY HAMLIN called [facility] and scheduled outpatient therapy for Tuesday08/06/19 at 1300. SALLY HAMLIN updated the patient. Disposition Plan: Patient to discharge home with outpatient therapy, family support, and follow-up plans in place. Josy WILSON, RN, CM
[2019-08-02 15:30] VITALS: BP 137/65; PULSE 94; RESP 18; TEMP 36.5; O2SAT 98
[2019-08-02 19:50] VITALS: BP 105/63; PULSE 96; RESP 18; TEMP 36.9; O2SAT 93
[2019-08-02] MEDS: Meloxicam 7.5 MG Tablet PO (21:43)
[2019-08-03 03:50] VITALS: BP 111/66; PULSE 78; RESP 16; TEMP 37; O2SAT 95
[2019-08-03] MEDS: oxyCODONE 5 MG Tablet PO ×3 (03:52→12:45)
[2019-08-03] MEDS: Acetaminophen 500 MG Tablet 1000 MG PO (05:20)
[2019-08-03] MEDS: Levothyroxine 25 MCG TABLET PO (05:20)
[2019-08-03 06:17] LABS: Hematocrit 32.9 % (37-47); Hemoglobin 10.6 g/dL (12.0-15.0); Mean Corp Hgb Conc 32.2 g/dL (32-36); Mean Corpuscular Volume 102.5 fL (81-99); Mean Platelet Vol. 9.9 fl (6.2-12.0); Platelet Count 151 K/mm3 (150-450); RBC Distribution Width CV 14.3 % (11.6-14.6); RBC Distribution Width SD 53.5 fl (35.1-43.9); Red Blood Count 3.21 M/mm3 (4.2-5.4); White Blood Count 5.3 K/mm3 (4.4-11.0)
[2019-08-03 06:45] VITALS: O2SAT 95
--- NOTE | 2019-08-03 06:45 | PCM.PN.ORT ---
Subjective: The patient was sitting in bed upon examination. Patient denies any chest pain, shortness of breath, dizziness, lightheadedness, nausea or vomiting, or calf pain. Pain is controlled on medications. No adverse overnight events. Overall patient is doing well. She does have some swelling and soreness in the left knee. Her has been some redness over the medial aspect of the knee with bruising. Otherwise she is doing well. Objective: Vital signs stable and afebrile. Patient is able to plantarflex and dorsiflex actively. Sensation is intact to light touch to saphenous, sural, superficial and deep peroneal, and tibial distribution. Dressing is clean dry and intact. Minimal erythema over the medial aspect of the left knee with ecchymosis Negative Homans bilaterally, negative signs and symptoms of DVT. - Physical Exam Vitals/I&O's: Vital Signs Temp Pulse Resp BP Pulse Ox 98.6 F 78 16 111/66 95 08/03/19 03:50 08/03/19 03:50 08/03/19 03:50 08/03/19 03:50 08/03/19 03:50 Oxygen Flow Rate (L/min) 1 Oxygen Delivery Method Room Air Weight: 58.6 kg Body Mass Index (BMI) 22.1 Intake and Output for Last 24 Hours 08/01/19 08/02/19 08/03/19 23:59 23:59 23:59 Intake Total 2734.17 / 2834.17 2592.50 / 2712.50 120 / 120 Balance 2734.17 / 2834.17 2592.50 / 2712.50 120 / 120 General: Alert, Oriented x3, Cooperative, No apparent distress Microbiology Past 72 Hours 08/01/19 13:12 Tissue - Knee Gram Stain - Final 08/01/19 13:12 Tissue - Knee Wound Culture - Preliminary No growth-Final to follow 08/01/19 13:12 Tissue - Knee Gram Stain - Final 08/01/19 13:12 Tissue - Knee Wound Culture - Preliminary No growth-Final to follow 08/01/19 13:12 Tissue - Knee Gram Stain - Final 08/01/19 13:12 Tissue - Knee Wound Culture - Preliminary No growth-Final to follow Laboratory Results 08/03/19 05:40: WBC 5.3, RBC 3.21 L, Hgb 10.6 L, Hct 32.9 L, MCV 102.5 H, MCH 33.0 H, MCHC 32.2, RDW Std Deviation 53.5 H, RDW Coeff of Burt 14.3, Plt Count 151, MPV 9.9 Current Medications Acetaminophen (Tylenol) 1,000 mg PO Q8 [facility] Last Admin: 08/03/19 05:20 Dose: 1,000 mg Documented by: Albuterol Sulfate (Ventolin Aerosols) 2.5 mg INHALATION Q4H PRN PRN PRN Reason: SOB &/OR WHEEZING Aspirin ([facility], [facility]) [address] [facility] Last Admin: 08/02/19 17:30 Dose: 81 mg Documented by: Calcium/Vitamin D (Os-Bebeto 500mg + D) [address] [facility] Last Admin: 08/02/19 17:31 Dose: 1 tablet Documented by: Doxycycline Monohydrate (Doxycycline) 100 mg PO BID [facility] Stop: 08/08/19 22:01 Last Admin: 08/02/19 21:43 Dose: 100 mg Documented by: Enteral Nutritional Formula (Ensure Surgery) 237 ml PO TIDCM [facility] Last Admin: 08/02/19 17:32 Dose: 237 ml Documented by: Famotidine (Pepcid) 20 mg PO DAILY [facility] Last Admin: 08/02/19 10:06 Dose: 20 mg Documented by: Lactated Ringer's () 1,000 mls @ 125 mls/hr IV .Q8H [facility] Last Admin: 08/03/19 00:45 Dose: Not Given Documented by: Insulin Human Lispro (Humalog Debbiepen (Bkc)) 1 - 6 unit SC Q4H PRN PRN; Protocol PRN Reason: BG>/= 180, SEE PROTOCOL Levothyroxine Sodium (Synthroid) 25 mcg PO DAILY@0600 [facility] Last Admin: 08/03/19 05:20 Dose: 25 mcg Documented by: Meloxicam (Mobic) 7.5 mg PO BID [facility] Last Admin: 08/02/19 21:43 Dose: 7.5 mg Documented by: Montelukast Sodium (Singulair) 10 mg PO DAILY [facility] Last Admin: 08/02/19 10:07 Dose: 10 mg Documented by: Morphine Sulfate () 2 - 4 mg IV Q2H PRN PRN PRN Reason: Pain Score 6-10/10 Morphine Sulfate () 2 - 4 mg IV Q2H PRN PRN PRN Reason: Pain Score 6-10/10 Multivitamins/Minerals (Multivitamin With Minerals) 1 tablet PO DAILY@0800 [facility] Last Admin: 08/02/19 08:36 Dose: 1 tablet Documented by: Ondansetron HCl (Zofran) 4 mg IV Q8H PRN PRN PRN Reason: NAUSEA Oxycodone HCl (Oxyir) 5 - 10 mg PO Q4H PRN PRN PRN Reason: Pain Score 4-10/10 Last Admin: 08/03/19 03:52 Dose: 5 mg Documented by: Pantoprazole Sodium (Protonix) 20 mg PO DAILY [facility] Last Admin: 08/02/19 10:07 Dose: 20 mg Documented by: Promethazine HCl (Phenergan) 12.5 mg IM Q6H PRN PRN; Protocol PRN Reason: NAUSEA/VOMITING Senna/Docusate Sodium (Senokot-S, Isi-Colace) 2 tablet PO BID [facility] Last Admin: 08/02/19 21:43 Dose: 2 tablet Documented by: Sodium Chloride () 10 - 40 ml IV UD PRN PRN Reason: SALINE FLUSH Last Admin: 08/02/19 15:40 Dose: 10 ml Documented by: Tolterodine Tartrate (Detrol La) 2 mg PO DAILY [facility] Last Admin: 08/02/19 10:10 Dose: 2 mg Documented by: Medical Necessity - Tobacco Use Smoking Status: Former smoker Tobacco Use: Non-smoker Assessment/Plan 1. S/P right revision total knee arthroplasty POD #2 2. Continue Pain Medications: Tylenol and OxyIR 3. DVT Prophylaxis: Aspirin 81 mg twice daily for 4 weeks postoperatively 4. PT/OT: Weightbearing as tolerated 5. H & H: 10.6/32.9, asymptomatic 6. Encouraged Incentive Spirometry 7. Continue antibiotics while following cultures: Currently on doxycycline 1 week postoperatively 8. Disposition: Orthopedically stable, plan will be for discharge home this afternoon after physical therapy. Patient wishes to have prescriptions E scribed to [facility] in [place]. Patient will follow per postop instructions. Patient does have outpatient physical therapy established. I have reviewed the [place] Automated Rx Reporting System (OARRS) report for this patient for refill pattern and other prescriber involvement as part of the appropriate surveillance for the provision of acute and chronic controlled medications. The report was requested and reviewed on the date of this entry and was considered in the prescribing process.
--- NOTE | 2019-08-03 06:53 | DCINST_ITS ---
Discharge Diet: No Restrictions Discharge Activity: May Not Drive May shower in (days): 1 - Dressing must be intact to skin. Turn dressing away from water Ice area for (Minutes): 20 - Every 1-2 hours while awake Weight Bearing Status: Weight bearing as tolerated Elevate: Operative Extremity Additional Activity Instructions:: Wear elastic stockings for 2 weeks after your surgery. Call your doctor if your incision/area has: Continuous Slow Oozing, Sudden Increased Bleeding, Increased Pain/ Swelling, Increased Redness, Foul Smelling Discharge Call your doctor if you observe: Fever of 101 or Higher, Coldness, Increased Pain, Numbness or Tingling, Change in Color, Calf discomfort, Uncontrolled pain Remove Dressing in (days):: 3 - Okay to remove on August 06, 2019 Additional Instructions: Follow orthopedic postop instructions Allergies/Adverse Reactions: Allergies No Known Allergies Allergy (Verified 08/01/19 09:45) Medications to take at Discharge Albuterol IH (ProAir) [Proair Hfa (SP)Vent Pts] 1 puff INHALATION Q4H PRN PRN 07/20/19 Calcium Carbonate/Vitamin D3 [Calcium 600-Vit D3 200 Tablet] 1 ea PO BID 07/20/19 Levothyroxine Sodium [Synthroid] 25 mcg PO DAILY 07/20/19 Montelukast [Singulair] 10 mg PO DAILY 07/20/19 Multivit-Min/Iron/Folic/Lutein [Centrum Silver Women Tablet] 1 ea PO DAILY 07/20/19 Omeprazole [Prilosec] 20 mg PO DAILY 07/20/19 Oxybutynin Chloride [Ditropan Xl] 10 mg PO DAILY 07/20/19 Acetaminophen [Tylenol] 1,000 mg PO Q8 #100 tab 08/03/19 Aspirin [Aspirin, Baby] 81 mg PO BIDCM 30 Days tab.chew 08/03/19 Doxycycline 100 mg PO BID #12 cap 08/03/19 Meloxicam [Mobic] 7.5 mg PO BID #60 tab 08/03/19 Oxycodone [Oxyir] 5 - 10 mg PO Q4H PRN PRN 5 Days #60 tab 08/03/19 The following prescriptions were given: Doxycycline 100 mg PO BID #12 cap Transmission Status: Sent to [id number] Meloxicam [Mobic] 7.5 mg PO BID #60 tab Transmission Status: Sent to [id number] Oxycodone [Oxyir] 5 - 10 mg PO Q4H PRN PRN 5 Days #60 tab PRN Reason: Pain Score 4-10/10 Transmission Status: Sent to [facility] Acetaminophen [Tylenol] 1,000 mg PO Q8 #100 tab Transmission Status: Sent to [facility] Primary Care Physician: Rusty Woodard [Primary Care Provider] - Test Results: Test results from this visit will be discussed in further detail at your follow- up appointment, if applicable. Please Follow Up With: [facility] When: 08/06/19 @ 1:00 pm Please Follow Up With: Stewart Gaming PA-C When: 08/15/19 @ 8:15 am
[2019-08-03] MEDS: Tolterodine Tartrate 2 MG CAP.SA PO (07:12)
[2019-08-03 09:03] VITALS: BP 106/59; PULSE 89; RESP 16; TEMP 36.9; O2SAT 98
[2019-08-03] MEDS: Multivitamins,Ther W-Minerals Tablet 1 TABLET PO (09:52)
[2019-08-03] MEDS: Meloxicam 7.5 MG Tablet PO (09:52)
[2019-08-03] MEDS: Doxycycline 100 MG CAPSULE PO (09:52)
[2019-08-03] MEDS: Pantoprazole Sodium 20 MG Tablet PO (09:52)
[2019-08-03] MEDS: Aspirin 81 MG TAB.CHEW PO (09:53)
[2019-08-03] MEDS: Famotidine 20 MG Tablet PO (09:53)
[2019-08-03] MEDS: Calcium Carb/Vitamin D 1 TABLET Tablet PO (09:53)
[2019-08-03] MEDS: Montelukast 10 MG Tablet PO (09:54)
--- NOTE | 2019-08-03 09:58 | NURSING ---
This nurse is aware of Vital Signs taken by Flat Sorting Machine Clerk.
[2019-08-03 14:09] VITALS: BP 123/74; PULSE 90; RESP 14; TEMP 37.1; O2SAT 96
== END 2019-08-03 14:50 | disposition home or self-care (01) | DRG 468 ==
LOC: ACINP 09:15 → MS3 12:22
PROVIDERS: Anesthesiology; Admitting Provider Specialist; Family Provider Internal Medicine; PCP Internal Medicine; Referring Provider Internal Medicine; Visit Provider Specialist
PROC: 0SPC0JZ Removal of Synthetic Substitute from Right Knee Joint, Open Approach (ICD-10-PCS; principal; 2019-08-01 10:50)
DX: T84.062A Wear of articular bearing surface of internal prosthetic right knee joint, initial encounter (principal); T84.032A Mechanical loosening of internal right knee prosthetic joint, initial encounter; T84.82XA Fibrosis due to internal orthopedic prosthetic devices, implants and grafts, initial encounter; K21.9 Gastro-esophageal reflux disease without esophagitis; I83.10 Varicose veins of unspecified lower extremity with inflammation; K58.9 Irritable bowel syndrome, unspecified; K44.9 Diaphragmatic hernia without obstruction or gangrene; N32.89 Other specified disorders of bladder; J43.9 Emphysema, unspecified; J45.909 Unspecified asthma, uncomplicated; Z92.3 Personal history of irradiation; Z85.819 Personal history of malignant neoplasm of unspecified site of lip, oral cavity, and pharynx; Z87.891 Personal history of nicotine dependence; Y83.1 Surgical operation with implant of artificial internal device as the cause of abnormal reaction of the patient, or of later complication, without mention of misadventure at the time of the procedure
CPT/HCPCS: 36415; 71046; 73560; 80048; 80076; 82962; 84443; 85025; 85027; 85610; 85730; 87015; 87070; 87075; 87081; 87102; 87116; 87176; 87205; 87206; 93005; 97110; 97162; 97166; 97530; 97535; 99251; C1776; J7120; A4216; G0463; J2405

== ENCOUNTER → 2020-12-23 12:38 | Outpatient (CLI) | payer MEDICARE, OTHER, SELFPAY ==
[2019-08-01 17:20] VITALS: BMI 22.1
--- NOTE | 2020-12-23 12:47 | CT_ITS ---
STUDY: CT SOFT TISSUE NECK WITH CONTRAST REASON FOR EXAM: Female, 75 years old. L NECK PAIN, S/P CHEMO RADIATION THERAPY FOR TONSIL CARCINOMA RADIATION DOSAGE (If Supplied By Facility): CTDIvol = ( 13.6 ) mGy, DLP = ( 363.63 ) mGycm TECHNIQUE: The patient was scanned in a multi-detector CT scanner. High resolution transaxial imaging was performed following intravenous administration of IV 100mL Isovue-300. Sagittal and coronal images were reconstructed. Individualized dose optimization techniques were used for this CT. COMPARISON: None. FINDINGS: Normal bilateral parotid glands. Normal bilateral marine farmer spaces. Normal bilateral parapharyngeal spaces. Normal bilateral carotid spaces. Normal bilateral sublingual and submandibular glands and spaces. Normal visualized nasopharynx. Normal retropharyngeal space. Normal perivertebral space. Normal visualized bilateral faucial tonsils. The visualized tongue, tongue base and oropharynx are normal. The visualized cervical lymph nodes (levels I-) are within normal size limits, and maintain normal morphology. There is no demonstrated solid or cystic mass lesion. There is no abnormal contrast enhancement. Normal epiglottis, bilateral vallecula and hypopharynx. The pre-epiglottic and paraglottic adipose spaces are normal. Normal visualized bilateral piriform sinuses, aryepiglottic folds, vocal cords, and arytenoid-cricoid articulations. Normal subglottic trachea. Normal bilateral lobes of the thyroid gland. Lung apices show diffuse interstitial fibrotic changes and emphysematous blebs. Normal visualized paranasal sinuses. There is multilevel degenerative changes of the cervical spine. CT/Soft Tissue Neck WITH Contrast IMPRESSION: No suspicious enhancing lesion, airway narrowing or deviation. No CT evidence of an acute inflammatory process Electronically Signed: Ajay Mulligan MD at 14:04 EDT , Service support ,
[2020-12-23 13:00] LABS: CREATININE FINGERSTICK 0.9 mg/dL (0.55-1.02); EGFR FINGERSTICK > 60.0000 mL/min (>60)
== END ==
PROVIDERS: PCP Internal Medicine; Referring Provider Otolaryngology; Visit Provider Otolaryngology
DX: M54.2 Cervicalgia (principal); C09.9 Malignant neoplasm of tonsil, unspecified
CPT/HCPCS: 70491; Q9967

== ENCOUNTER 2023-09-07 10:30 | Outpatient (RCR) | payer MEDICARE, OTHER, SELFPAY ==
[2023-08-17 10:02] VITALS: BP 132/86; PULSE 89; RESP 16; TEMP 36.4
--- NOTE | 2023-08-17 13:32 | PCM.WC.HP ---
History of Present Illness Date of Service: 08/17/23 Chief Complaint: Left leg ulceration History of Wound: Left leg ulceration Progress of Wound: Ms. Mathis is a 77-year-old female present to wound care center today for second opinion to laceration to the medial aspect of the left leg. 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 Patient states she suffered a laceration which was sewed up in the emergency department and ended up with a surgical wound dehiscence to the deep capsule axis of her left leg. She is seen today in the wound care center for evaluation and treatment. She denies any new onset of trauma. Denies constitutional symptoms. No pedal complaints at this time. PFSH Home Medications albuterol sulfate 90 mcg/actuation aerosol inhaler 1 puff inhalation Q4H PRN PRN Sob &/Or Wheezing 07/20/19 [History Last Taken Unknown] levothyroxine 25 mcg tablet 112 mcg PO DAILY thyroid 07/20/19 [History Last Taken 08/01/19] montelukast 10 mg tablet 10 mg PO DAILY asthma 07/20/19 [History Last Taken Unknown] eobtmthb-xjcf-hnzv 8 mg-folic 400 mcg-K 50 mcg-lutein 300 mcg tablet 1 ea PO DAILY supplement 07/20/19 [History Last Taken Unknown] oxybutynin chloride 10 mg tablet,extended release 24 hr 10 mg PO DAILY bladder 07/20/19 [History Last Taken Unknown] acetaminophen 500 mg tablet 1,000 mg (2 x 500 mg) PO Q8 #100 tabs 08/03/19 [Rx Last Taken Unknown] aspirin 81 mg tablet,delayed release (Adult Aspirin Regimen) 81 mg PO DAILY 08/17/23 [History Last Taken Unknown] horse chestnut PO DAILY 08/17/23 [History Last Taken Unknown] pantoprazole 40 mg tablet,delayed release 40 mg PO DAILY 08/17/23 [History Last Taken Unknown] pentoxifylline 400 mg tablet,extended release 400 mg PO TID 08/17/23 [History Last Taken Unknown] Allergy/AdvReac Type Severity Reaction Status Date / Time No Known Allergies Allergy Verified 08/01/19 09:45 Social History Smoking Status: Former smoker Vital Signs Vital Signs Vital Signs: 08/17/23 10:02 Temperature 97.6 F L Temperature Source Temporal Pulse Rate 89 Respiratory Rate 16 Blood Pressure 132/86 H Blood Pressure Mean 101 Blood Pressure Source Monitor Blood Pressure Position Sitting Blood Pressure Location Left Arm Oxygen Delivery Method Room Air Weight Weight: 53.524 kg Body Mass Index (BMI) 0.0 Physical Exam Narrative Vascular: DP and PT pulses are palpable. CFT is brisk. Evidence of varicose is appreciated bilateral lower extremity. Nonpitting edema appreciated bilateral lower extremity. Neurological: Light touch intact. Patient response to painful stimuli. Dermatological:. Evidence of healed incision proximal and distal to the full-thickness ulceration to the left leg. 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 Full-thickness ulceration to the medial aspect of the left leg measuring 1.8 x 0.6 x 0.1 cm. Excisional debridement of full-thickness ulceration to the medial aspect of the left leg down to and including subcutaneous tissue with number 5 mm dermal curette without incident. Predebridement measurement was 1.0 x 0.4 x 0.1 cm. Postdebridement measurement is 1.8 x 0.6 x 0.1 cm. Musculoskeletal: Pain with palpation to the full-thickness ulceration to the left leg. Palpable calcification appreciated to the bilateral lower extremity. No pain with calf compression bilateral. Const alert, oriented x3 and no apparent distress Debridement Note Debridement Note Debridement Free Text: Excisional debridement of full-thickness ulceration to the medial aspect of the left leg down to and including subcutaneous tissue with number 5 mm dermal curette without incident. Predebridement measurement was 1.0 x 0.4 x 0.1 cm. Postdebridement measurement is 1.8 x 0.6 x 0.1 cm. Post-Debridement Measurements and Additional Note: Post-Debridement Measurements/Treatment - Nurse 1 - General Ulcer Assessment Start: 08/17/23 10:02 Freq: Status: Active Protocol: [email or web address] Activity Type Activity Date Activity User E-sign Co-sign Detail Recorded Client Recorded Date Recorded By Document 08/17/23 10:02 Desktop 08/17/23 10:20 GM 08/17/23 10:02 - Today's Visit Information Type of service Initial Visit Arrival Mode Ambulatory Transfer Assistance None Patient Identification Verified (Name & Yes ) Patient Requires Transmission-Based No Precautions Height and Weight Height 206 ft 8.32 in Weight 53.524 kg Weight in Pounds 118.0 lbs Weight Measurement Method Stated by Patient Body Mass Index (BMI) 0.0 BMI Classification Underweight BSA - Rajat 22.16 Vital Signs Temperature (97.8 F-99.1 F) 97.6 F L Temperature Source Temporal Pulse Rate (60-100) 89 Pulse Location Monitor Respiratory Rate (12-18) 16 Respiratory rate source Observation Oxygen Delivery Method Room Air Blood Pressure (90/60-120/80) 132/86 H Blood Pressure Mean 101 Source Monitor Position Sitting Blood Pressure Location Left Arm History Since Last Visit- (Skip if this is Patient's initial visit) Left Footwear Regular Shoe Right Footwear Regular Shoe Pain Scale: 0-10 Numeric Is Patient Pain Free? Yes Lower Extremity Assessment/ Foot Assessment/ Toe Nail Assessment Right -Claudication Assessment Intermittent -Posterior Tibial Palpable Yes -Posterior Tibial Doppler Multiphasic -Dorsalis Pedis Palpable Yes -Dorsalis Pedis Doppler Multiphasic -Extremity Color Normal -Hair Growth on Legs No -Hair Growth on Toes No -Temperature of Extremity Warm -Capillary Refill Less than 3 Seconds -Dependent Rubor No -Blanched when Elevated No -Lipodermatosclerosis No -Other Deformity No -Prior Foot Ulcer No -Charcot Joint No -Prior Amputation No -Thick No -Discolored No -Deformed No -Improper Length & Hygeine No Left -Claudication Assessment Intermittent -Posterior Tibial Palpable Yes -Posterior Tibial Doppler Multiphasic -Dorsalis Pedis Palpable Yes -Dorsalis Pedis Doppler Multiphasic -Extremity Color Normal -Hair Growth on Legs No -Hair Growth on Toes No -Temperature of Extremity Warm -Capillary Refill Less than 3 Seconds -Dependent Rubor No -Blanched when Elevated Yes -Other Deformity No -Prior Foot Ulcer No -Charcot Joint No -Prior Amputation No -Thick No -Discolored No -Deformed No -Improper Length & Hygeine No Functional Assessment Recent Decline in Ability to Perform Denies Any Declines WC - Nurse 1 - General Ulcer Measurement Start: 08/17/23 10:02 Freq: Status: Active Protocol: Activity Type Activity Date Activity User E-sign Co-sign Detail Recorded Client Recorded Date Recorded By Document 08/17/23 10:02 Desktop 08/17/23 10:20 GM 08/17/23 10:02 Wound Center Nurse 1 #1 L Medial LE -Current Size (cm) - Length 1.6 -Current Size (cm) - Width 0.6 -Current Size (cm) - Depth 0.1 -Total Square Cm 0.96 -Date of Last Picture (Recall this 08/17/23 field) -Photo Taken Yes -Epithelialization Small 1-33% -Tunneling No -Undermining/Tunneling No -Circular Undermining No -Exudate Amt Medium -Exudate Type Yellow/Green -Wound Margin Flat & Intact -Granulation Amt None Present (0 %) -Necrosis Amt Medium (34-66%) -Necrotic Tissue Type Adherent Slough -Structure Exposed N/A -Texture (Isi-wound Skin Appearance) Assessed, Scarring -Moisture (Isi-wound Skin Appearance) Assessed -Color (Isi-wound Skin Appearance) Assessed -Temperature (Isi-wound Skin No Abnormality Appearance) (Pt Warm) -Tenderness on Palpation (Isi-wound No Skin Appearance) -Ulcer Cleansing Rinsed/ Irrigated with Saline -Foul Odor after Cleansing Yes -Anesthetic Used 5% Lidocaine Gel Right Calf (cm) 33.0 Right Ankle (cm) 20.4 Left Calf (cm) 34.4 Left Ankle (cm) 20.0 WC - Nurse 2 - General Ulcer CM Notes Start: 08/17/23 10:02 Freq: Status: Active Protocol: Activity Type Activity Date Activity User E-sign Co-sign Detail Recorded Client Recorded Date Recorded By Document 08/17/23 10:54 Laptop 08/17/23 11:00 08/17/23 10:54 Wound Center Nurse 2 #1 L [facility] -Time 10:57 -Correct Patient Yes -Correct Side, Site, Position Yes -Correct Procedure Yes -Procedure Performed Yes -Type of Procedure Debridement -Clinical Debridement Subcutaneous -Tissue Removed Subcutaneous -Post Debridement (cm) - Length 1.8 -Post Debridement (cm) - Width 0.6 -Post Debridement (cm) - Depth 0.1 -Total Square (Post) (cm) 1.08 -Area of Debridement (cm) - Length 1.8 -Area of Debridement (cm) - Width 0.6 -Total Square (Area) (cm) 1.08 -Tunneling No -Undermining/Tunneling No -Circular Undermining No -Wound/Ulcer Outcome Not Healed -Ulcer Cleansing Rinsed/ Irrigated with Saline -Foul Odor after Cleansing No -Bioengineered Tissue No -Bleeding Controlled with Pressure -Treatment Response Procedure Tolerated Well -Offloading No -Debridement - Subq, 1st 20sq cm Yes Pain Scale: 0-10 Numeric Is Patient Pain Free? Yes - Nurse 3 - General Ulcer D/C NN Start: 08/17/23 10:02 Freq: Status: Active Protocol: Activity Type Activity Date Activity User E-sign Co-sign Detail Recorded Client Recorded Date Recorded By Document 08/17/23 11:16 Desktop 08/17/23 11:17 08/17/23 11:16 Wound Care Center Nurse 3 #1 L Medial LE -Ulcer Cleansing Not Cleansed -Foul Odor after Cleansing No -Negative Pressure Wound Therapy N/A -Primary Dressing Covered/Secured with Dry Gauze & Roll Gauze, Secured with Tape Left -Tubular Bandage Single Layer -Size of Tubigrip Used Size D -Size D ($) 1 Pain Scale: 0-10 Numeric Is Patient Pain Free? Yes Teaching: Wound Center Compression -Person Taught Patient -Teaching Method Discussion, Demonstration -Response to teaching Verbalize understanding Wound care -Person Taught Patient -Teaching Method Discussion -Response to teaching Verbalize understanding Dressing change -Person Taught Patient -Teaching Method Discussion, Demonstration -Response to teaching Verbalize understanding WC - Visit Discharge Discharge Condition Stable Ambulatory Status Ambulatory Transportation Private Auto Medication Reconcilliation completed & Yes provided to patient/care provider Clinical Summary of Care Provided Yes Assessment/Plan Assessment/Plan (1) 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 All findings were discussed with the patient. All questions were answered to the patient's satisfaction. Excisional debridement of full-thickness ulceration to the medial aspect of the left leg down to and including subcutaneous tissue with number 5 mm dermal curette without incident. Predebridement measurement was 1.0 x 0.4 x 0.1 cm. Postdebridement measurement is 1.8 x 0.6 x 0.1 cm. A culture was taken of the ulceration to rule out any sign of infection prior to grafting. The left leg ulceration was dressed with triple antibiotic gauze and sterile Band-Aid. Patient was instructed to change his Band-Aid daily. She is free and clear to wash her leg as long as she dries and applies her home wound care dressing. Will begin authorization to the patient's insurance for [employer] applications. Follow-up in 1 week.. (2) Pain in left leg: CODE(S): M79.605 - Pain in left leg (3) PVD (peripheral vascular disease): CODE(S): I73.9 - Peripheral vascular disease, unspecified
[2023-08-24 10:24] VITALS: BP 149/83; PULSE 71; RESP 18
--- NOTE | 2023-08-24 12:43 | PN.PCM_ITS ---
History of Present Illness Date of Service: 08/24/23 Chief Complaint: Left leg ulceration History of Wound: Left leg ulceration Progress of Wound: Ms. Mathis is a 77-year-old female present to wound care center today for second opinion to laceration to the medial aspect of the left leg. 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 Patient states she suffered a laceration which was sewed up in the emergency department and ended up with a surgical wound dehiscence to the deep capsule axis of her left leg. She is seen today in the wound care center for evaluation and treatment. She denies any new onset of trauma. Denies constitutional symptoms. No pedal complaints at this time. Subjective Subjective Mrs. Mathis is a 77-year-old female presenting to the wound care center for follow-up and evaluation of full-thickness ulceration to the left leg. Patient admits she is not smoking at this time. She has been doing her home dressing changes as instructed. She denies any new onset of trauma. She denies constitutional symptoms. No other pedal complaints at this time. Objective Data Objective Data Vital Signs: Vital Signs Temp Pulse Resp BP O2 Del Method 97.6 F L 71 18 149/83 H Room Air 08/17/23 10:02 08/24/23 10:24 08/24/23 10:24 08/24/23 10:24 08/24/23 10:24 Oxygen Delivery Method Room Air Weight: 53.524 kg Body Mass Index (BMI) 0.0 Lab / Micro Data Micro: Microbiology 08/17/23 10:55 Wound - Leg, Left Gram Stain - Final 08/17/23 10:55 Wound - Leg, Left Wound Culture - Final Yeast, not Jadyn albicans 08/17/23 10:55 Wound - Leg, Left Anaerobic Culture - Final No growth in 5 days. Physical Exam Narrative Vascular: DP and PT pulses are palpable. CFT is brisk. Evidence of varicose is appreciated bilateral lower extremity. Nonpitting edema appreciated bilateral lower extremity. Neurological: Light touch intact. Patient response to painful stimuli. Dermatological:. Evidence of healed incision proximal and distal to the full- thickness ulceration to the left leg. 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 Full-thickness ulceration to the medial aspect of the left leg measuring 1.0 x 0.6 x 0.1 cm. Excisional debridement of full-thickness ulceration to the medial aspect of the left leg down to and including subcutaneous tissue with number 5 mm dermal curette without incident. Predebridement measurement was 0.8 x 0.5 x 0.1 cm. Postdebridement measurement is 1.0 x 0.6 x 0.1 cm. Application of TheraSkin skin substitute measuring 1.75 cm x 1.75 cm, 3 cm?, was applied to the full-thickness ulceration to the left medial leg after debridement. First application, 100% of the TheraSkin was used. The TheraSkin was secured with Dermabond followed by nonadherent bandage secured in place with Steri-Strips followed by bolster dressing as well as a single layer Tubigrip. Musculoskeletal: Pain with palpation to the full-thickness ulceration to the left leg. Palpable calcification appreciated to the bilateral lower extremity. No pain with calf compression bilateral Debridement Note Debridement Note Debridement Free Text: Excisional debridement of full-thickness ulceration to the medial aspect of the left leg down to and including subcutaneous tissue with number 5 mm dermal curette without incident. Predebridement measurement was 0.8 x 0.5 x 0.1 cm. Postdebridement measurement is 1.0 x 0.6 x 0.1 cm. Application of TheraSkin skin substitute measuring 1.75 cm x 1.75 cm, 3 cm?, was applied to the full-thickness ulceration to the left medial leg after debridement. First application, 100% of the TheraSkin was used. The TheraSkin was secured with Dermabond followed by nonadherent bandage secured in place with Steri-Strips followed by bolster dressing as well as a single layer Tubigrip. 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 ) Arrival Mode Ambulatory Ambulatory Transfer Assistance None Patient Identification Verified (Name & Yes Yes ) Patient Requires Transmission-Based No Precautions Height and Weight Height 206 ft 8.32 in Weight 53.524 kg Weight in Pounds 118.0 lbs Weight Measurement Method Stated by Patient Body Mass Index (BMI) 0.0 0.0 BMI Classification Underweight Underweight BSA - Rajat 22.16 Vital Signs Temperature (97.8 F-99.1 F) 97.6 F L Temperature Source Temporal Pulse Rate (60-100) 89 71 Pulse Location Monitor Monitor Respiratory Rate (12-18) 16 18 Respiratory rate source Observation Observation Oxygen Delivery Method Room Air Room Air Blood Pressure (90/60-120/80) 132/86 H 149/83 H Blood Pressure Mean (mm Hg) 101 105 Source Monitor Monitor Position Sitting Semi-Fowlers Blood Pressure Location Left Arm Left Arm History Since Last Visit- (Skip if this is Patient's initial visit) Have you changed medications since your No last visit? Any new allergies or adverse reactions No Had a fall/change in ADL's that may No increase risk of falls Signs or symptoms of abuse and/or No neglect since last visit Have you been in the hospital since your No last visit? Has dressing in place as prescribed Yes Has compression in place as prescribed Yes Has offloadiing in place as prescribed No Experienced any changes in pain level or No management Left Footwear Regular Shoe Regular Shoe Right Footwear Regular Shoe Regular Shoe Pain Scale: 0-10 Numeric Is Patient Pain Free? Yes No LT LAT LE -Description Sharp -Alleviating Factors/Interventions Medication Lower Extremity Assessment/ Foot Assessment/ Toe Nail Assessment Right -Claudication Assessment Intermittent -Posterior Tibial Palpable Yes -Posterior Tibial Doppler Multiphasic -Dorsalis Pedis Palpable Yes -Dorsalis Pedis Doppler Multiphasic -Extremity Color Normal -Hair Growth on Legs No -Hair Growth on Toes No -Temperature of Extremity Warm -Capillary Refill Less than 3 Seconds -Dependent Rubor No -Blanched when Elevated No -Lipodermatosclerosis No -Other Deformity No -Prior Foot Ulcer No -Charcot Joint No -Prior Amputation No -Thick No -Discolored No -Deformed No -Improper Length & Hygeine No Left -Claudication Assessment Intermittent -Posterior Tibial Palpable Yes -Posterior Tibial Doppler Multiphasic -Dorsalis Pedis Palpable Yes -Dorsalis Pedis Doppler Multiphasic -Extremity Color Normal -Hair Growth on Legs No -Hair Growth on Toes No -Temperature of Extremity Warm -Capillary Refill Less than 3 Seconds -Dependent Rubor No -Blanched when Elevated Yes -Other Deformity No -Prior Foot Ulcer No -Charcot Joint No -Prior Amputation No -Thick No -Discolored No -Deformed No -Improper Length & Hygeine No Functional Assessment Recent Decline in Ability to Perform Denies Any Declines WC - Nurse 1 - General Ulcer Measurement Start: 08/17/23 10:02 Freq: Status: Active Protocol: Activity Type Activity Date Activity User E-sign Co-sign Detail Recorded Client Recorded Date Recorded By Document 08/17/23 10:02 GM Desktop 08/17/23 10:20 GM Document 08/24/23 10:24 KW Desktop 08/24/23 10:32 KW 08/17/23 08/24/23 10:02 10:24 Wound Center Nurse 1 #1 L Medial LE -Current Size (cm) - Length 1.6 1.8 -Current Size (cm) - Width 0.6 0.6 -Current Size (cm) - Depth 0.1 0.2 -Total Square Cm 0.96 1.08 -Date of Last Picture (Recall this 08/17/23 field) -Photo Taken Yes -Epithelialization Small 1-33% -Tunneling No -Undermining/Tunneling No -Circular Undermining No -Exudate Amt Medium Small -Exudate Type Yellow/Green Serosanguineous -Wound Margin Flat & Intact Thickened -Granulation Amt None Present (0 Small (1-33%) %) -Granulation Quality [place] -Necrosis Amt Medium (34-66%) Large (67-100%) -Necrotic Tissue Type Adherent Slough Adherent Slough -Structure Exposed N/A -Texture (Isi-wound Skin Appearance) Assessed, Assessed, Scarring Scarring -Moisture (Isi-wound Skin Appearance) Assessed Assessed -Color (Isi-wound Skin Appearance) Assessed Assessed -Temperature (Isi-wound Skin No Abnormality No Abnormality Appearance) (Pt Warm) (Pt Warm) -Tenderness on Palpation (Isi-wound No Skin Appearance) -Ulcer Cleansing Rinsed/ Rinsed/ Irrigated with Irrigated with Saline Saline -Foul Odor after Cleansing Yes -Anesthetic Used 5% Lidocaine 5% Lidocaine Gel Gel Right Calf (cm) 33.0 Right Ankle (cm) 20.4 Left Calf (cm) 34.4 32.0 Left Ankle (cm) 20.0 18.3 [facility] - Nurse 2 - General Ulcer CM Notes Start: 08/17/23 10:02 Freq: Status: Active Protocol: Activity Type Activity Date Activity User E-sign Co-sign Detail Recorded Client Recorded Date Recorded By Document 08/17/23 10:54 Laptop 08/17/23 11:00 Document 08/24/23 10:59 Desktop 08/24/23 11:01 08/17/23 08/24/23 10:54 10:59 Wound Center Nurse 2 #1 L Medial LE -Time 10:57 10:59 -Correct Patient Yes Yes -Correct Side, Site, Position Yes Yes -Correct Procedure Yes Yes -Procedure Performed Yes Yes -Type of Procedure Debridement Debridement -Clinical Debridement Subcutaneous Subcutaneous -Tissue Removed Subcutaneous Subcutaneous -Post Debridement (cm) - Length 1.8 1 -Post Debridement (cm) - Width 0.6 0.6 -Post Debridement (cm) - Depth 0.1 0.1 -Total Square (Post) (cm) 1.08 0.6 -Area of Debridement (cm) - Length 1.8 1.0 -Area of Debridement (cm) - Width 0.6 0.6 -Total Square (Area) (cm) 1.08 0.60 -Tunneling No No -Undermining/Tunneling No No -Circular Undermining No No -Wound/Ulcer Outcome Not Healed Not Healed -Ulcer Cleansing Rinsed/ Rinsed/ Irrigated with Irrigated with Saline Saline -Foul Odor after Cleansing No No -Bioengineered Tissue No Yes -Type of Bioengineered Tissue Theraskin -Expiration Date 08/07/27 -Product Lot Number [id number] -Percent Used 100 -Lot number of Saline Used [id number] -Bleeding Controlled with Pressure Pressure -Treatment Response Procedure Procedure Tolerated Well Tolerated Well -Offloading No No -Debridement - Subq, 1st 20sq cm Yes No -Apply Skin Sub - 1st 25 sq cm - Legs 1 -Theraskin (per sq cm) 3 Pain Scale: 0-10 Numeric Is Patient Pain Free? Yes Yes [facility] - Nurse 3 - General Ulcer D/C NN Start: 08/17/23 10:02 Freq: Status: Active Protocol: Activity Type Activity Date Activity User E-sign Co-sign Detail Recorded Client Recorded Date Recorded By Document 08/17/23 11:16 Desktop 08/17/23 11:17 Document 08/24/23 11:01 Desktop 08/24/23 11:02 08/17/23 08/24/23 11:16 11:01 Wound Care Center Nurse 3 #1 L Medial LE -Ulcer Cleansing Not Cleansed Rinsed/ Irrigated with Saline -Foul Odor after Cleansing No No -Negative Pressure Wound Therapy N/A -Primary Dressing Applied Mepilex Border -Primary Dressing Covered/Secured with Dry Gauze & Dry Gauze Roll Gauze, Secured with Tape -Mepilex Border 1 Left -Tubular Bandage Single Layer Single Layer -Size of Tubigrip Used Size D Size D -Size D ($) 1 1 Pain Scale: 0-10 Numeric Is Patient Pain Free? Yes Yes Teaching: Wound Center Compression -Person Taught Patient -Teaching Method Discussion, Demonstration -Response to teaching Verbalize understanding Wound care -Person Taught Patient -Teaching Method Discussion -Response to teaching Verbalize understanding Dressing change -Person Taught Patient -Teaching Method Discussion, Demonstration -Response to teaching Verbalize understanding WC - Visit Discharge Discharge Condition Stable Stable Ambulatory Status Ambulatory Ambulatory Transportation Private Auto Private Auto Medication Reconcilliation completed & Yes Yes provided to patient/care provider Clinical Summary of Care Provided Yes Yes Assessment/Plan Assessment/Plan (1) 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 All findings were discussed with the patient. All questions were answered to the patient's satisfaction. Excisional debridement of full-thickness ulceration to the medial aspect of the left leg down to and including subcutaneous tissue with number 5 mm dermal curette without incident. Predebridement measurement was 0.8 x 0.5 x 0.1 cm. Postdebridement measurement is 1.0 x 0.6 x 0.1 cm. Application of TheraSkin skin substitute measuring 1.75 cm x 1.75 cm, 3 cm?, was applied to the full-thickness ulceration to the left medial leg after debridement. First application, 100% of the TheraSkin was used. The TheraSkin was secured with Dermabond followed by nonadherent bandage secured in place with Steri-Strips followed by bolster dressing as well as a single layer Tubigrip. The patient's cultures were reviewed that show evidence of fungal species to be growing in the full-thickness ulceration. The patient will be placed on terbinafine 250 mg to be taken daily for 2 weeks. Follow-up 1 week. (2) PVD (peripheral vascular disease): CODE(S): I73.9 - Peripheral vascular disease, unspecified (3) Pain in left leg: CODE(S): M79.605 - Pain in left leg
[2023-08-31 10:56] VITALS: RESP 16
--- NOTE | 2023-08-31 11:37 | PN.PCM_ITS ---
History of Present Illness Date of Service: 08/31/23 Chief Complaint: Left leg ulceration History of Wound: Left leg ulceration Progress of Wound: Ms. Mathis is a 77-year-old female present to wound care center today for second opinion to laceration to the medial aspect of the left leg. 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 Patient states she suffered a laceration which was sewed up in the emergency department and ended up with a surgical wound dehiscence to the deep capsule axis of her left leg. She is seen today in the wound care center for evaluation and treatment. She denies any new onset of trauma. Denies constitutional symptoms. No pedal complaints at this time. Subjective Subjective Mrs. Mathis is a 77-year-old female presenting to clinic today for follow-up evaluation of left full-thickness ulceration and application of skin graft substitute, TheraSkin. Patient has left her skin graft substitute clean dry and intact. She denies any strikethrough. She has left her dressing clean dry and intact. She denies trauma. Denies constitutional symptoms. No other pedal complaints at this time. Objective Data Objective Data Vital Signs: Vital Signs Temp Pulse Resp BP O2 Del Method 97.6 F L 71 16 149/83 H Room Air 08/17/23 10:02 08/24/23 10:24 08/31/23 10:56 08/24/23 10:24 08/31/23 10:56 Oxygen Delivery Method Room Air Weight: 53.524 kg Body Mass Index (BMI) 0.0 Lab / Micro Data Micro: Microbiology 08/17/23 10:55 Wound - Leg, Left Gram Stain - Final 08/17/23 10:55 Wound - Leg, Left Wound Culture - Final Yeast, not Jadyn albicans 08/17/23 10:55 Wound - Leg, Left Anaerobic Culture - Final No growth in 5 days. Physical Exam Narrative Vascular: DP and PT pulses are palpable. CFT is brisk. Evidence of varicose is appreciated bilateral lower extremity. Nonpitting edema appreciated bilateral lower extremity. Neurological: Light touch intact. Patient response to painful stimuli. Dermatological:. Evidence of healed incision proximal and distal to the full- thickness ulceration to the left leg. 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 Full-thickness ulceration to the medial aspect of the left leg measuring 1.1 x 0.6 x 0.1 cm. Excisional debridement of full-thickness ulceration to the medial aspect of the left leg down to and including subcutaneous tissue with number 5 mm dermal curette without incident. Predebridement measurement was 0.9 x 0.4 x 0.1 cm. Postdebridement measurement is 1.1 x 0.6 x 0.1 cm. Application of TheraSkin skin substitute measuring 1.75 cm x 1.75 cm, 3 cm?, was applied to the full-thickness ulceration to the left medial leg after debridement. Second application, 100% of the TheraSkin was used. The TheraSkin was secured with Dermabond followed by nonadherent bandage secured in place with Steri-Strips followed by bolster dressing as well as a single layer Tubigrip. Musculoskeletal: Pain with palpation to the full-thickness ulceration to the left leg. Palpable calcification appreciated to the bilateral lower extremity. No pain with calf compression bilateral Debridement Note Debridement Note Debridement Free Text: Excisional debridement of full-thickness ulceration to the medial aspect of the left leg down to and including subcutaneous tissue with number 5 mm dermal curette without incident. Predebridement measurement was 0.9 x 0.4 x 0.1 cm. Postdebridement measurement is 1.1 x 0.6 x 0.1 cm. Application of TheraSkin skin substitute measuring 1.75 cm x 1.75 cm, 3 cm?, was applied to the full-thickness ulceration to the left medial leg after debridement. Second application, 100% of the TheraSkin was used. The TheraSkin was secured with Dermabond followed by nonadherent bandage secured in place with Steri-Strips followed by bolster dressing as well as a single layer Tubigrip Post-Debridement Measurements and Additional Note: Post-Debridement Measurements/Treatment WC - Nurse 1 - General Ulcer Assessment Start: 08/17/23 10:02 Freq: Status: Active Protocol: BALTAZAR Activity Type Activity Date Activity User E-sign Co-sign Detail Recorded Client Recorded Date Recorded By Document 08/17/23 10:02 GM Desktop 08/17/23 10:20 GM Document 08/24/23 10:24 KW Desktop 08/24/23 10:32 KW Document 08/31/23 10:56 BMF Desktop 08/31/23 11:05 BMF 08/17/23 08/24/23 08/31/23 10:02 10:24 10:56 WC - Today's Visit Information Type of service Initial Visit Follow-up Visit Follow-up Visit (Physician/SHOWCASE TRIMMER (Physician/SHOWCASE TRIMMER ) ) Arrival Mode Ambulatory Ambulatory Ambulatory Transfer Assistance None None Patient Identification Verified (Name & Yes Yes Yes ) Patient Requires Transmission-Based No No Precautions Height and Weight Height 206 ft 8.32 in Weight 53.524 kg Weight in Pounds 118.0 lbs Weight Measurement Method Stated by Patient Body Mass Index (BMI) 0.0 0.0 0.0 BMI Classification Underweight Underweight Underweight BSA - Rajat 22.16 Vital Signs Temperature (97.8 F-99.1 F) 97.6 F L Temperature Source Temporal Pulse Rate (60-100) 89 71 Pulse Location Monitor Monitor Monitor Respiratory Rate (12-18) 16 18 16 Respiratory rate source Observation Observation Observation Oxygen Delivery Method Room Air Room Air Room Air Blood Pressure (90/60-120/80) 132/86 H 149/83 H Blood Pressure Mean (mm Hg) 101 105 Source Monitor Monitor Monitor Position Sitting Semi-Fowlers Sitting Blood Pressure Location Left Arm Left Arm History Since Last Visit- (Skip if this is Patient's initial visit) Have you changed medications since your No No last visit? Any new allergies or adverse reactions No No Had a fall/change in ADL's that may No No increase risk of falls Signs or symptoms of abuse and/or No No neglect since last visit Have you been in the hospital since your No No last visit? Has dressing in place as prescribed Yes Yes Has compression in place as prescribed Yes Yes Has offloadiing in place as prescribed No N/A Experienced any changes in pain level or No No management Left Footwear Regular Shoe Regular Shoe Regular Shoe Right Footwear Regular Shoe Regular Shoe Regular Shoe Pain Scale: 0-10 Numeric Is Patient Pain Free? Yes No Yes LT LAT LE -Description Sharp -Alleviating Factors/Interventions Medication Lower Extremity Assessment/ Foot Assessment/ Toe Nail Assessment Right -Claudication Assessment Intermittent -Posterior Tibial Palpable Yes -Posterior Tibial Doppler Multiphasic -Dorsalis Pedis Palpable Yes -Dorsalis Pedis Doppler Multiphasic -Extremity Color Normal -Hair Growth on Legs No -Hair Growth on Toes No -Temperature of Extremity Warm -Capillary Refill Less than 3 Seconds -Dependent Rubor No -Blanched when Elevated No -Lipodermatosclerosis No -Other Deformity No -Prior Foot Ulcer No -Charcot Joint No -Prior Amputation No -Thick No -Discolored No -Deformed No -Improper Length & Hygeine No Left -Claudication Assessment Intermittent -Posterior Tibial Palpable Yes -Posterior Tibial Doppler Multiphasic -Dorsalis Pedis Palpable Yes -Dorsalis Pedis Doppler Multiphasic -Extremity Color Normal -Hair Growth on Legs No -Hair Growth on Toes No -Temperature of Extremity Warm -Capillary Refill Less than 3 Seconds -Dependent Rubor No -Blanched when Elevated Yes -Other Deformity No -Prior Foot Ulcer No -Charcot Joint No -Prior Amputation No -Thick No -Discolored No -Deformed No -Improper Length & Hygeine No Functional Assessment Recent Decline in Ability to Perform Denies Any Declines WC - Nurse 1 - General Ulcer Measurement Start: 08/17/23 10:02 Freq: Status: Active Protocol: Activity Type Activity Date Activity User E-sign Co-sign Detail Recorded Client Recorded Date Recorded By Document 08/17/23 10:02 GM Desktop 08/17/23 10:20 GM Document 08/24/23 10:24 KW Desktop 08/24/23 10:32 KW Document 08/31/23 10:56 [facility] Desktop 08/31/23 11:05 BMF 08/17/23 08/24/23 08/31/23 10:02 10:24 10:56 Wound Center Nurse 1 #1 L Medial LE -Combined with other wound No -Current Size (cm) - Length 1.6 1.8 2 -Current Size (cm) - Width 0.6 0.6 2.2 -Current Size (cm) - Depth 0.1 0.2 0.1 -Total Square Cm 0.96 1.08 4.4 -Date of Last Picture (Recall this 08/17/23 08/31/23 field) -Photo Taken Yes Yes -Epithelialization Small 1-33% None Present -Tunneling No No -Undermining/Tunneling No No -Circular Undermining No No -Exudate Amt Medium Small Medium -Exudate Type Yellow/Green Serosanguineous Serosanguineous -Wound Margin Flat & Intact Thickened Distinct, Outline Attached -Granulation Amt None Present (0 Small (1-33%) None Present (0 %) %) -Granulation Quality [place] -Slough/Fibrin Yes -Necrosis Amt Medium (34-66%) Large (67-100%) Large (67-100%) -Necrotic Tissue Type Adherent Slough Adherent Slough Eschar -Structure Exposed N/A -Texture (Isi-wound Skin Appearance) Assessed, Assessed, Assessed, Scarring Scarring Scarring -Moisture (Isi-wound Skin Appearance) Assessed Assessed Assessed,Dry/ Scaly -Color (Isi-wound Skin Appearance) Assessed Assessed Assessed -Temperature (Isi-wound Skin No Abnormality No Abnormality No Abnormality Appearance) (Pt Warm) (Pt Warm) (Pt Warm) -Tenderness on Palpation (Isi-wound No No Skin Appearance) -Ulcer Cleansing Rinsed/ Rinsed/ Soap and Water Irrigated with Irrigated with Saline Saline -Foul Odor after Cleansing Yes No -Anesthetic Used 5% Lidocaine 5% Lidocaine 5% Lidocaine Gel Gel Gel Right Calf (cm) 33.0 Right Ankle (cm) 20.4 Left Calf (cm) 34.4 32.0 32.5 Left Ankle (cm) 20.0 18.3 19.3 WC - Nurse 2 - General Ulcer CM Notes Start: 08/17/23 10:02 Freq: Status: Active Protocol: Activity Type Activity Date Activity User E-sign Co-sign Detail Recorded Client Recorded Date Recorded By Document 08/17/23 10:54 Laptop 08/17/23 11:00 Document 08/24/23 10:59 Desktop 08/24/23 11:01 Document 08/31/23 11:17 Laptop 08/31/23 11:22 08/17/23 08/24/23 08/31/23 10:54 10:59 11:17 Wound Center Nurse 2 #1 L Medial LE -Time 10:57 10:59 11:17 -Correct Patient Yes Yes Yes -Correct Side, Site, Position Yes Yes Yes -Correct Procedure Yes Yes Yes -Procedure Performed Yes Yes Yes -Type of Procedure Debridement Debridement Debridement -Clinical Debridement Subcutaneous Subcutaneous Subcutaneous -Tissue Removed Subcutaneous Subcutaneous Subcutaneous -Post Debridement (cm) - Length 1.8 1 1.1 -Post Debridement (cm) - Width 0.6 0.6 0.6 -Post Debridement (cm) - Depth 0.1 0.1 0.1 -Total Square (Post) (cm) 1.08 0.6 0.66 -Area of Debridement (cm) - Length 1.8 1.0 1.1 -Area of Debridement (cm) - Width 0.6 0.6 0.6 -Total Square (Area) (cm) 1.08 0.60 0.66 -Tunneling No No No -Undermining/Tunneling No No No -Circular Undermining No No No -Wound/Ulcer Outcome Not Healed Not Healed Not Healed -Ulcer Cleansing Rinsed/ Rinsed/ Rinsed/ Irrigated with Irrigated with Irrigated with Saline Saline Saline -Foul Odor after Cleansing No No No -Bioengineered Tissue No Yes Yes -Type of Bioengineered Tissue Theraskin Theraskin -Expiration Date 08/07/27 06/21/27 -Product Lot Number [id number] -Percent Used 100 100 -Lot number of Saline Used [id number] -Bleeding Controlled with Pressure Pressure -Treatment Response Procedure Procedure Tolerated Well Tolerated Well -Offloading No No -Debridement - Subq, 1st 20sq cm Yes No No -Apply Skin Sub - 1st 25 sq cm - Legs 1 1 -Theraskin (per sq cm) 3 3 Pain Scale: 0-10 Numeric Is Patient Pain Free? Yes Yes Yes - Nurse 3 - General Ulcer D/C NN Start: 08/17/23 10:02 Freq: Status: Active Protocol: Activity Type Activity Date Activity User E-sign Co-sign Detail Recorded Client Recorded Date Recorded By Document 08/17/23 11:16 Desktop 08/17/23 11:17 Document 08/24/23 11:01 Desktop 08/24/23 11:02 Document 08/31/23 11:22 Laptop 08/31/23 11:22 08/17/23 08/24/23 08/31/23 11:16 11:01 11:22 Wound Care Center Nurse 3 #1 L Medial LE -Ulcer Cleansing Not Cleansed Rinsed/ Irrigated with Saline -Foul Odor after Cleansing No No -Negative Pressure Wound Therapy N/A -Primary Dressing Applied Mepilex Border C Hydrogel ($), Mepilex Border -Primary Dressing Covered/Secured with Dry Gauze & Dry Gauze Roll Gauze, Secured with Tape -Mepilex Border 1 1 Left -Tubular Bandage Single Layer Single Layer Single Layer -Size of Tubigrip Used Size D Size D Size D -Size D ($) 1 1 1 Pain Scale: 0-10 Numeric Is Patient Pain Free? Yes Yes Yes Teaching: Wound Center Compression -Person Taught Patient -Teaching Method Discussion, Demonstration -Response to teaching Verbalize understanding Wound care -Person Taught Patient -Teaching Method Discussion -Response to teaching Verbalize understanding Dressing change -Person Taught Patient -Teaching Method Discussion, Demonstration -Response to teaching Verbalize understanding WC - Visit Discharge Discharge Condition Stable Stable Stable Ambulatory Status Ambulatory Ambulatory Ambulatory Transportation Private Auto Private Auto Private Auto Medication Reconcilliation completed & Yes Yes Yes provided to patient/care provider Clinical Summary of Care Provided Yes Yes Yes Assessment/Plan Assessment/Plan (1) 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 All findings were discussed with the patient. All questions were answered to the patient's satisfaction. Excisional debridement of full-thickness ulceration to the medial aspect of the left leg down to and including subcutaneous tissue with number 5 mm dermal curette without incident. Predebridement measurement was 0.9 x 0.4 x 0.1 cm. Postdebridement measurement is 1.1 x 0.6 x 0.1 cm. Application of TheraSkin skin substitute measuring 1.75 cm x 1.75 cm, 3 cm?, was applied to the full-thickness ulceration to the left medial leg after debridement. Second application, 100% of the TheraSkin was used. The TheraSkin was secured with Dermabond followed by nonadherent bandage secured in place with Steri-Strips followed by bolster dressing as well as a single layer Tubigrip Follow-up in 1 week. (2) Pain in left leg: CODE(S): M79.605 - Pain in left leg
[2023-09-07 10:23] VITALS: BP 136/78; PULSE 81; RESP 18
--- NOTE | 2023-09-07 11:58 | PCM.WC.PN ---
History of Present Illness Date of Service: 09/07/23 Chief Complaint: Left leg ulceration History of Wound: Left leg ulceration Progress of Wound: Ms. Mathis is a 77-year-old female present to wound care center today for second opinion to laceration to the medial aspect of the left leg. 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 Patient states she suffered a laceration which was sewed up in the emergency department and ended up with a surgical wound dehiscence to the deep capsule axis of her left leg. She is seen today in the wound care center for evaluation and treatment. She denies any new onset of trauma. Denies constitutional symptoms. No pedal complaints at this time. Subjective Subjective Mrs. Mathis is a 77-year-old female presenting to clinic today for follow-up evaluation of left full-thickness ulceration and application of skin graft substitute, TheraSkin. Patient has left her skin graft substitute clean dry and intact. She denies any strikethrough. She has left her dressing clean dry and intact. She denies trauma. Denies constitutional symptoms. No other pedal complaints at this time. Objective Data Objective Data Vital Signs: Vital Signs Temp Pulse Resp BP O2 Del Method 97.6 F L 81 18 136/78 H Room Air 08/17/23 10:02 09/07/23 10:23 09/07/23 10:23 09/07/23 10:23 09/07/23 10:23 Oxygen Delivery Method Room Air Weight: 53.524 kg Body Mass Index (BMI) 0.0 Lab / Micro Data Micro: Microbiology 08/17/23 10:55 Wound - Leg, Left Gram Stain - Final 08/17/23 10:55 Wound - Leg, Left Wound Culture - Final Yeast, not Jadyn albicans 08/17/23 10:55 Wound - Leg, Left Anaerobic Culture - Final No growth in 5 days. Physical Exam Narrative Vascular: DP and PT pulses are palpable. CFT is brisk. Evidence of varicose is appreciated bilateral lower extremity. Nonpitting edema appreciated bilateral lower extremity. Neurological: Light touch intact. Patient response to painful stimuli. Dermatological:. Evidence of healed incision proximal and distal to the full-thickness ulceration to the left leg. 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 Full-thickness ulceration to the medial aspect of the left leg measuring 1.1 x 0.5 x 0.1 cm. Excisional debridement of full-thickness ulceration to the medial aspect of the left leg down to and including subcutaneous tissue with number 5 mm dermal curette without incident. Predebridement measurement was 1.0 x 0.4 x 0.1 cm. Postdebridement measurement is 1.1 x 0.5 x 0.1 cm. Application of TheraSkin skin substitute measuring 1.75 cm x 1.75 cm, 3 cm?, was applied to the full-thickness ulceration to the left medial leg after debridement. Third application, 100% of the TheraSkin was used. The TheraSkin was secured with Dermabond followed by nonadherent bandage secured in place with Steri-Strips followed by bolster dressing as well as a single layer Tubigrip. Musculoskeletal: Pain with palpation to the full-thickness ulceration to the left leg. Palpable calcification appreciated to the bilateral lower extremity. No pain with calf compression bilateral Debridement Note Debridement Note Debridement Free Text: Excisional debridement of full-thickness ulceration to the medial aspect of the left leg down to and including subcutaneous tissue with number 5 mm dermal curette without incident. Predebridement measurement was 1.0 x 0.4 x 0.1 cm. Postdebridement measurement is 1.1 x 0.5 x 0.1 cm. Application of TheraSkin skin substitute measuring 1.75 cm x 1.75 cm, 3 cm?, was applied to the full-thickness ulceration to the left medial leg after debridement. Third application, 100% of the TheraSkin was used. The TheraSkin was secured with Dermabond followed by nonadherent bandage secured in place with Steri-Strips followed by bolster dressing as well as a single layer Tubigrip Post-Debridement Measurements and Additional Note: Post-Debridement Measurements/Treatment WC - Nurse 1 - General Ulcer Assessment Start: 08/17/23 10:02 Freq: Status: Active Protocol: BALTAZAR Activity Type Activity Date Activity User E-sign Co-sign Detail Recorded Client Recorded Date Recorded By Document 08/17/23 10:02 GM Desktop 08/17/23 10:20 GM Document 08/24/23 10:24 KW Desktop 08/24/23 10:32 KW Document 08/31/23 10:56 BMF Desktop 08/31/23 11:05 BM Document 09/07/23 10:23 KW Desktop 09/07/23 10:33 KW 08/17/23 08/24/23 08/31/23 10:02 10:24 10:56 WC - Today's Visit Information Type of service Initial Visit Follow-up Visit Follow-up Visit ([facility] ([facility] ) ) Arrival Mode Ambulatory Ambulatory Ambulatory Transfer Assistance None None Patient Identification Verified (Name & Yes Yes Yes ) Patient Requires Transmission-Based No No Precautions Height and Weight Height 206 ft 8.32 in Weight 53.524 kg Weight in Pounds 118.0 lbs Weight Measurement Method Stated by Patient Body Mass Index (BMI) 0.0 0.0 0.0 BMI Classification Underweight Underweight Underweight BSA - Rajat 22.16 Vital Signs Temperature (97.8 F-99.1 F) 97.6 F L Temperature Source Temporal Pulse Rate (60-100) 89 71 Pulse Location Monitor Monitor Monitor Respiratory Rate (12-18) 16 18 16 Respiratory rate source Observation Observation Observation Oxygen Delivery Method Room Air Room Air Room Air Blood Pressure (90/60-120/80) 132/86 H 149/83 H Blood Pressure Mean (mm Hg) 101 105 Source Monitor Monitor Monitor Position Sitting Semi-Fowlers Sitting Blood Pressure Location Left Arm Left Arm History Since Last Visit- (Skip if this is Patient's initial visit) Have you changed medications since your No No last visit? Any new allergies or adverse reactions No No Had a fall/change in ADL's that may No No increase risk of falls Signs or symptoms of abuse and/or No No neglect since last visit Have you been in the hospital since your No No last visit? Has dressing in place as prescribed Yes Yes Has compression in place as prescribed Yes Yes Has offloadiing in place as prescribed No N/A Experienced any changes in pain level or No No management Left Footwear Regular Shoe Regular Shoe Regular Shoe Right Footwear Regular Shoe Regular Shoe Regular Shoe Pain Scale: 0-10 Numeric Is Patient Pain Free? Yes No Yes LT LAT LE -Description Sharp -Alleviating Factors/Interventions Medication Lower Extremity Assessment/ Foot Assessment/ Toe Nail Assessment Right -Claudication Assessment Intermittent -Posterior Tibial Palpable Yes -Posterior Tibial Doppler Multiphasic -Dorsalis Pedis Palpable Yes -Dorsalis Pedis Doppler Multiphasic -Extremity Color Normal -Hair Growth on Legs No -Hair Growth on Toes No -Temperature of Extremity Warm -Capillary Refill Less than 3 Seconds -Dependent Rubor No -Blanched when Elevated No -Lipodermatosclerosis No -Other Deformity No -Prior Foot Ulcer No -Charcot Joint No -Prior Amputation No -Thick No -Discolored No -Deformed No -Improper Length & Hygeine No Left -Claudication Assessment Intermittent -Posterior Tibial Palpable Yes -Posterior Tibial Doppler Multiphasic -Dorsalis Pedis Palpable Yes -Dorsalis Pedis Doppler Multiphasic -Extremity Color Normal -Hair Growth on Legs No -Hair Growth on Toes No -Temperature of Extremity Warm -Capillary Refill Less than 3 Seconds -Dependent Rubor No -Blanched when Elevated Yes -Other Deformity No -Prior Foot Ulcer No -Charcot Joint No -Prior Amputation No -Thick No -Discolored No -Deformed No -Improper Length & Hygeine No Functional Assessment Recent Decline in Ability to Perform Denies Any Declines 09/07/23 10:23 WC - Today's Visit Information Type of service Follow-up Visit ([facility] ) Arrival Mode Ambulatory Transfer Assistance Patient Identification Verified (Name & Yes ) Patient Requires Transmission-Based Precautions Height and Weight Height Weight Weight in Pounds Weight Measurement Method Body Mass Index (BMI) 0.0 BMI Classification Underweight BSA - Rajat Vital Signs Temperature (97.8 F-99.1 F) Temperature Source Pulse Rate (60-100) 81 Pulse Location Monitor Respiratory Rate (12-18) 18 Respiratory rate source Observation Oxygen Delivery Method Room Air Blood Pressure (90/60-120/80) 136/78 H Blood Pressure Mean (mm Hg) 97 Source Monitor Position Semi-Fowlers Blood Pressure Location Left Arm History Since Last Visit- (Skip if this is Patient's initial visit) Have you changed medications since your No last visit? Any new allergies or adverse reactions No Had a fall/change in ADL's that may No increase risk of falls Signs or symptoms of abuse and/or No neglect since last visit Have you been in the hospital since your No last visit? Has dressing in place as prescribed Yes Has compression in place as prescribed Yes Has offloadiing in place as prescribed No Experienced any changes in pain level or No management Left Footwear Regular Shoe Right Footwear Regular Shoe Pain Scale: 0-10 Numeric Is Patient Pain Free? Yes LT LAT LE -Description -Alleviating Factors/Interventions Lower Extremity Assessment/ Foot Assessment/ Toe Nail Assessment Right -Claudication Assessment -Posterior Tibial Palpable -Posterior Tibial Doppler -Dorsalis Pedis Palpable -Dorsalis Pedis Doppler -Extremity Color -Hair Growth on Legs -Hair Growth on Toes -Temperature of Extremity -Capillary Refill -Dependent Rubor -Blanched when Elevated -Lipodermatosclerosis -Other Deformity -Prior Foot Ulcer -Charcot Joint -Prior Amputation -Thick -Discolored -Deformed -Improper Length & Hygeine Left -Claudication Assessment -Posterior Tibial Palpable -Posterior Tibial Doppler -Dorsalis Pedis Palpable -Dorsalis Pedis Doppler -Extremity Color -Hair Growth on Legs -Hair Growth on Toes -Temperature of Extremity -Capillary Refill -Dependent Rubor -Blanched when Elevated -Other Deformity -Prior Foot Ulcer -Charcot Joint -Prior Amputation -Thick -Discolored -Deformed -Improper Length & Hygeine Functional Assessment Recent Decline in Ability to Perform WC - Nurse 1 - General Ulcer Measurement Start: 08/17/23 10:02 Freq: Status: Active Protocol: Activity Type Activity Date Activity User E-sign Co-sign Detail Recorded Client Recorded Date Recorded By Document 08/17/23 10:02 GM Desktop 08/17/23 10:20 GM Document 08/24/23 10:24 KW Desktop 08/24/23 10:32 KW Document 08/31/23 10:56 [facility] Desktop 08/31/23 11:05 BMF Document 09/07/23 10:23 KW Desktop 09/07/23 10:33 KW 08/17/23 08/24/23 08/31/23 10:02 10:24 10:56 Wound Center Nurse 1 #1 L Medial LE -Combined with other wound No -Current Size (cm) - Length 1.6 1.8 2 -Current Size (cm) - Width 0.6 0.6 2.2 -Current Size (cm) - Depth 0.1 0.2 0.1 -Total Square Cm 0.96 1.08 4.4 -Date of Last Picture (Recall this 08/17/23 08/31/23 field) -Photo Taken Yes Yes -Epithelialization Small 1-33% None Present -Tunneling No No -Undermining/Tunneling No No -Circular Undermining No No -Exudate Amt Medium Small Medium -Exudate Type Yellow/Green Serosanguineous Serosanguineous -Wound Margin Flat & Intact Thickened Distinct, Outline Attached -Granulation Amt None Present (0 Small (1-33%) None Present (0 %) %) -Granulation Quality [place] -Slough/Fibrin Yes -Necrosis Amt Medium (34-66%) Large (67-100%) Large (67-100%) -Necrotic Tissue Type Adherent Slough Adherent Slough Eschar -Structure Exposed N/A -Texture (Isi-wound Skin Appearance) Assessed, Assessed, Assessed, Scarring Scarring Scarring -Moisture (Isi-wound Skin Appearance) Assessed Assessed Assessed,Dry/ Scaly -Color (Isi-wound Skin Appearance) Assessed Assessed Assessed -Temperature (Isi-wound Skin No Abnormality No Abnormality No Abnormality Appearance) (Pt Warm) (Pt Warm) (Pt Warm) -Tenderness on Palpation (Isi-wound No No Skin Appearance) -Ulcer Cleansing Rinsed/ Rinsed/ Soap and Water Irrigated with Irrigated with Saline Saline -Foul Odor after Cleansing Yes No -Anesthetic Used 5% Lidocaine 5% Lidocaine 5% Lidocaine Gel Gel Gel Right Calf (cm) 33.0 Right Ankle (cm) 20.4 Left Calf (cm) 34.4 32.0 32.5 Left Ankle (cm) 20.0 18.3 19.3 09/07/23 10:23 Wound Center Nurse 1 #1 L Medial LE -Combined with other wound -Current Size (cm) - Length 0.8 -Current Size (cm) - Width 0.5 -Current Size (cm) - Depth 0.2 -Total Square Cm 0.40 -Date of Last Picture (Recall this field) -Photo Taken -Epithelialization -Tunneling -Undermining/Tunneling -Circular Undermining -Exudate Amt Small -Exudate Type Serosanguineous -Wound Margin -Granulation Amt Medium (34-66%) -Granulation Quality [place] -Slough/Fibrin -Necrosis Amt Small (1-33%) -Necrotic Tissue Type Adherent Slough -Structure Exposed -Texture (Isi-wound Skin Appearance) Assessed, Scarring -Moisture (Isi-wound Skin Appearance) Assessed -Color (Isi-wound Skin Appearance) Assessed -Temperature (Isi-wound Skin No Abnormality Appearance) (Pt Warm) -Tenderness on Palpation (Isi-wound Skin Appearance) -Ulcer Cleansing Soap and Water -Foul Odor after Cleansing No -Anesthetic Used 5% Lidocaine Gel Right Calf (cm) Right Ankle (cm) Left Calf (cm) 32 Left Ankle (cm) 19.5 - Nurse 2 - General Ulcer CM Notes Start: 08/17/23 10:02 Freq: Status: Active Protocol: Activity Type Activity Date Activity User E-sign Co-sign Detail Recorded Client Recorded Date Recorded By Document 08/17/23 10:54 Laptop 08/17/23 11:00 Document 08/24/23 10:59 Desktop 08/24/23 11:01 Document 08/31/23 11:17 Laptop 08/31/23 11:22 Document 09/07/23 10:51 Laptop 09/07/23 10:52 08/17/23 08/24/23 08/31/23 10:54 10:59 11:17 Wound Center Nurse 2 #1 L Medial LE -Time 10:57 10:59 11:17 -Correct Patient Yes Yes Yes -Correct Side, Site, Position Yes Yes Yes -Correct Procedure Yes Yes Yes -Procedure Performed Yes Yes Yes -Type of Procedure Debridement Debridement Debridement -Clinical Debridement Subcutaneous Subcutaneous Subcutaneous -Tissue Removed Subcutaneous Subcutaneous Subcutaneous -Post Debridement (cm) - Length 1.8 1 1.1 -Post Debridement (cm) - Width 0.6 0.6 0.6 -Post Debridement (cm) - Depth 0.1 0.1 0.1 -Total Square (Post) (cm) 1.08 0.6 0.66 -Area of Debridement (cm) - Length 1.8 1.0 1.1 -Area of Debridement (cm) - Width 0.6 0.6 0.6 -Total Square (Area) (cm) 1.08 0.60 0.66 -Tunneling No No No -Undermining/Tunneling No No No -Circular Undermining No No No -Wound/Ulcer Outcome Not Healed Not Healed Not Healed -Ulcer Cleansing Rinsed/ Rinsed/ Rinsed/ Irrigated with Irrigated with Irrigated with Saline Saline Saline -Foul Odor after Cleansing No No No -Bioengineered Tissue No Yes Yes -Type of Bioengineered Tissue Theraskin Theraskin -Expiration Date 08/07/27 06/21/27 -Product Lot Number [id number] -Percent Used 100 100 -Lot number of Saline Used [id number] -Bleeding Controlled with Pressure Pressure -Treatment Response Procedure Procedure Tolerated Well Tolerated Well -Offloading No No -Debridement - Subq, 1st 20sq cm Yes No No -Apply Skin Sub - 1st 25 sq cm - Legs 1 1 -[place]askin (per sq cm) 3 3 Pain Scale: 0-10 Numeric Is Patient Pain Free? Yes Yes Yes 09/07/23 10:51 Wound Center Nurse 2 #1 L Medial LE -Time 10:51 -Correct Patient Yes -Correct Side, Site, Position Yes -Correct Procedure Yes -Procedure Performed Yes -Type of Procedure Debridement -Clinical Debridement Subcutaneous -Tissue Removed Subcutaneous -Post Debridement (cm) - Length 1.1 -Post Debridement (cm) - Width 0.5 -Post Debridement (cm) - Depth 0.1 -Total Square (Post) (cm) 0.55 -Area of Debridement (cm) - Length 1.1 -Area of Debridement (cm) - Width 0.5 -Total Square (Area) (cm) 0.55 -Tunneling No -Undermining/Tunneling No -Circular Undermining No -Wound/Ulcer Outcome Not Healed -Ulcer Cleansing Rinsed/ Irrigated with Saline -Foul Odor after Cleansing No -Bioengineered Tissue Yes -Type of Bioengineered Tissue Theraskin -Expiration Date 06/21/27 -Product Lot Number [id number] -Percent Used 100 -Lot number of Saline Used [id number] -Bleeding Controlled with Pressure -Treatment Response Procedure Tolerated Well -Offloading No -Debridement - Subq, 1st 20sq cm No -Apply Skin Sub - 1st 25 sq cm - Legs 1 -Theraskin (per sq cm) 3 Pain Scale: 0-10 Numeric Is Patient Pain Free? Yes - Nurse 3 - General Ulcer D/C NN Start: 08/17/23 10:02 Freq: Status: Active Protocol: Activity Type Activity Date Activity User E-sign Co-sign Detail Recorded Client Recorded Date Recorded By Document 08/17/23 11:16 Desktop 08/17/23 11:17 Document 08/24/23 11:01 Desktop 08/24/23 11:02 Document 08/31/23 11:22 Laptop 08/31/23 11:22 JF Document 09/07/23 11:03 Desktop 09/07/23 11:04 08/17/23 08/24/23 08/31/23 11:16 11:01 11:22 Wound Care Center Nurse 3 #1 L Medial LE -Ulcer Cleansing Not Cleansed Rinsed/ Irrigated with Saline -Foul Odor after Cleansing No No -Negative Pressure Wound Therapy N/A -Primary Dressing Applied Mepilex Border C Hydrogel ($), Mepilex Border -Primary Dressing Covered/Secured with Dry Gauze & Dry Gauze Roll Gauze, Secured with Tape -Mepilex Border 1 1 Left -Tubular Bandage Single Layer Single Layer Single Layer -Size of Tubigrip Used Size D Size D Size D -Size D ($) 1 1 1 Pain Scale: 0-10 Numeric Is Patient Pain Free? Yes Yes Yes Teaching: Wound Center Compression -Person Taught Patient -Teaching Method Discussion, Demonstration -Response to teaching Verbalize understanding Wound care -Person Taught Patient -Teaching Method Discussion -Response to teaching Verbalize understanding Dressing change -Person Taught Patient -Teaching Method Discussion, Demonstration -Response to teaching Verbalize understanding WC - Visit Discharge Discharge Condition Stable Stable Stable Ambulatory Status Ambulatory Ambulatory Ambulatory Transportation Private Auto Private Auto Private Auto Medication Reconcilliation completed & Yes Yes Yes provided to patient/care provider Clinical Summary of Care Provided Yes Yes Yes 09/07/23 11:03 Wound Care Center Nurse 3 #1 L Medial LE -Ulcer Cleansing Not Cleansed -Foul Odor after Cleansing No -Negative Pressure Wound Therapy -Primary Dressing Applied Mepilex Border -Primary Dressing Covered/Secured with -Mepilex Border 1 Left -Tubular Bandage Single Layer -Size of Tubigrip Used Size D -Size D ($) 1 Pain Scale: 0-10 Numeric Is Patient Pain Free? Yes Teaching: Wound Center Compression -Person Taught -Teaching Method -Response to teaching Wound care -Person Taught -Teaching Method -Response to teaching Dressing change -Person Taught -Teaching Method -Response to teaching WC - Visit Discharge Discharge Condition Stable Ambulatory Status Ambulatory Transportation Private Auto Medication Reconcilliation completed & Yes provided to patient/care provider Clinical Summary of Care Provided Yes Assessment/Plan Assessment/Plan (1) 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 All findings were discussed with the patient. All questions were answered to the patient's satisfaction. Excisional debridement of full-thickness ulceration to the medial aspect of the left leg down to and including subcutaneous tissue with number 5 mm dermal curette without incident. Predebridement measurement was 1.0 x 0.4 x 0.1 cm. Postdebridement measurement is 1.1 x 0.5 x 0.1 cm. Application of TheraSkin skin substitute measuring 1.75 cm x 1.75 cm, 3 cm?, was applied to the full-thickness ulceration to the left medial leg after debridement. Third application, 100% of the TheraSkin was used. The TheraSkin was secured with Dermabond followed by nonadherent bandage secured in place with Steri-Strips followed by bolster dressing as well as a single layer Tubigrip Follow-up at the wound care center with Dr. Salas in 1 week. (2) PVD (peripheral vascular disease): CODE(S): I73.9 - Peripheral vascular disease, unspecified
== END 2023-09-11 23:59 | disposition home or self-care (01) ==
LOC: WC 10:30
PROVIDERS: PCP Internal Medicine; Referring Provider Internal Medicine; Visit Provider Podiatrist Foot & Ankle Surgery
DX: I73.9 Peripheral vascular disease, unspecified (principal); L97.822 Non-pressure chronic ulcer of other part of left lower leg with fat layer exposed; Z87.891 Personal history of nicotine dependence; M79.605 Pain in left leg
CPT/HCPCS: 11042; 15271; 87070; 87075; 87205; 99213; Q4121; G0463

== ENCOUNTER 2023-10-12 10:30 | Outpatient (RCR) | payer MEDICARE, OTHER, SELFPAY ==
[2023-09-12 00:26] VITALS: BP 136/78; PULSE 81; RESP 18; TEMP 36.4
[2023-09-14 10:17] VITALS: BP 134/69; PULSE 79; RESP 18; TEMP 36.1
--- NOTE | 2023-09-14 12:44 | PN.PCM_ITS ---
History of Present Illness Date of Service: 09/14/23 Chief Complaint: Left leg ulceration History of Wound: Left leg ulceration Subjective Subjective Mrs. Mathis is a 77-year-old female presenting to clinic today for follow-up evaluation of left full-thickness ulceration and application of skin graft substitute, TheraSkin. Patient has left her skin graft substitute clean dry and intact. She denies any strikethrough. She has left her dressing clean dry and intact. She denies trauma. Denies constitutional symptoms. No other pedal complaints at this time. Objective Data Objective Data Vital Signs: Vital Signs Temp Pulse Resp BP O2 Del Method 97.0 F L 79 18 134/69 H Room Air 09/14/23 10:17 09/14/23 10:17 09/14/23 10:17 09/14/23 10:17 09/14/23 10:17 Oxygen Delivery Method Room Air Weight: 53.524 kg Body Mass Index (BMI) 0.0 Physical Exam Narrative Vascular: DP and PT pulses are palpable. CFT is brisk. Evidence of varicose is appreciated bilateral lower extremity. Nonpitting edema appreciated bilateral lower extremity. Neurological: Light touch intact. Patient response to painful stimuli. Dermatological:. Evidence of healed incision proximal and distal to the full- thickness ulceration to the left leg. 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 Full-thickness ulceration to the medial aspect of the left leg measuring 0.9 x 0.4 x 0.1 cm. Excisional debridement of full-thickness ulceration to the medial aspect of the left leg down to and including subcutaneous tissue with number 5 mm dermal curette without incident. Predebridement measurement was 0.8 x 0.3 x 0.1 cm. Postdebridement measurement is 0.9 x 0.4 x 0.1 cm. Application of TheraSkin skin substitute measuring 1.75 cm x 1.75 cm, 3 cm?, was applied to the full-thickness ulceration to the left medial leg after debridement. Fourth application, 100% of the TheraSkin was used. The TheraSkin was secured with Dermabond followed by nonadherent bandage secured in place with Steri-Strips followed by bolster dressing as well as a single layer Tubigrip. Musculoskeletal: Pain with palpation to the full-thickness ulceration to the left leg. Palpable calcification appreciated to the bilateral lower extremity. No pain with calf compression bilateral Debridement Note Debridement Note Debridement Free Text: Excisional debridement of full-thickness ulceration to the medial aspect of the left leg down to and including subcutaneous tissue with number 5 mm dermal curette without incident. Predebridement measurement was 0.8 x 0.3 x 0.1 cm. Postdebridement measurement is 0.9 x 0.4 x 0.1 cm. Application of TheraSkin skin substitute measuring 1.75 cm x 1.75 cm, 3 cm?, was applied to the full-thickness ulceration to the left medial leg after debridement. Fourth application, 100% of the TheraSkin was used. The TheraSkin was secured with Dermabond followed by nonadherent bandage secured in place with Steri-Strips followed by bolster dressing as well as a single layer Tubigrip. 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 ) Arrival Mode Ambulatory Transfer Assistance None Patient Identification Verified (Name & Yes ) Patient Requires Transmission-Based No Precautions Height and Weight Body Mass Index (BMI) 0.0 BMI Classification Underweight Vital Signs Temperature (97.8 F-99.1 F) 97.0 F L Temperature Source Temporal Pulse Rate (60-100) 79 Pulse Location Monitor Respiratory Rate (12-18) 18 Respiratory rate source Observation Oxygen Delivery Method Room Air Blood Pressure (90/60-120/80) 134/69 H Blood Pressure Mean (mm Hg) 90 Source Monitor Position Semi-Fowlers Blood Pressure Location Right Arm History Since Last Visit- (Skip if this is Patient's initial visit) Have you changed medications since your No last visit? Any new allergies or adverse reactions No Had a fall/change in ADL's that may No increase risk of falls Signs or symptoms of abuse and/or No neglect since last visit Have you been in the hospital since your No last visit? Has dressing in place as prescribed Yes Has compression in place as prescribed Yes Has offloadiing in place as prescribed N/A Experienced any changes in pain level or No management Left Footwear Regular Shoe Right Footwear Regular Shoe Pain Scale: 0-10 Numeric Is Patient Pain Free? Yes - Nurse 1 - General Ulcer Measurement Start: 09/14/23 10:17 Freq: Status: Active Protocol: Activity Type Activity Date Activity User E-sign Co-sign Detail Recorded Client Recorded Date Recorded By Document 09/14/23 10:17 Desktop 09/14/23 10:24 09/14/23 10:17 Wound Center Nurse 1 #1 L Medial LE -Current Size (cm) - Length 1.7 -Current Size (cm) - Width 1.3 -Current Size (cm) - Depth 0.1 -Total Square Cm 2.21 -Date of Last Picture (Recall this 09/14/23 field) -Photo Taken No -Epithelialization None Present -Tunneling No -Undermining/Tunneling No -Circular Undermining No -Exudate Amt Medium -Exudate Type Sanguineous -Wound Margin Distinct, Outline Attached -Granulation Amt None Present (0 %) -Granulation Quality N/A -Structure Exposed N/A -Texture (Isi-wound Skin Appearance) Assessed -Moisture (Isi-wound Skin Appearance) Assessed -Color (Isi-wound Skin Appearance) Assessed -Temperature (Isi-wound Skin No Abnormality Appearance) (Pt Warm) -Tenderness on Palpation (Isi-wound No Skin Appearance) -Ulcer Cleansing Soap and Water -Foul Odor after Cleansing No -Anesthetic Used 5% Lidocaine Gel Lower Limb Edema Present No Right Calf (cm) 35 Right Ankle (cm) 20 - Nurse 2 - General Ulcer CM Notes Start: 09/14/23 10:17 Freq: Status: Active Protocol: Activity Type Activity Date Activity User E-sign Co-sign Detail Recorded Client Recorded Date Recorded By Document 09/14/23 11:06 Laptop 09/14/23 11:14 09/14/23 11:06 Wound Center Nurse 2 #1 L Medial LE -Time 11:12 -Correct Patient Yes -Correct Side, Site, Position Yes -Correct Procedure Yes -Procedure Performed Yes -Type of Procedure Debridement -Clinical Debridement Subcutaneous -Tissue Removed Subcutaneous -Post Debridement (cm) - Length 0.9 -Post Debridement (cm) - Width 0.4 -Post Debridement (cm) - Depth 0.2 -Total Square (Post) (cm) 0.36 -Area of Debridement (cm) - Length 0.9 -Area of Debridement (cm) - Width 0.4 -Total Square (Area) (cm) 0.36 -Tunneling No -Undermining/Tunneling No -Circular Undermining No -Wound/Ulcer Outcome Not Healed -Ulcer Cleansing Rinsed/ Irrigated with Saline -Foul Odor after Cleansing No -Bioengineered Tissue Yes -Type of Bioengineered Tissue Theraskin -Expiration Date 10/21/27 -Product Lot Number [id number] -Percent Used 100 -Lot number of Saline Used [id number] -Bleeding Controlled with Pressure -Treatment Response Procedure Tolerated Well -Offloading No -Debridement - Subq, 1st 20sq cm No -Apply Skin Sub - 1st 25 sq cm - Legs 1 -Theraskin (per sq cm) 3 Pain Scale: 0-10 Numeric Is Patient Pain Free? Yes - Nurse 3 - General Ulcer D/C NN Start: 09/14/23 10:17 Freq: Status: Active Protocol: Activity Type Activity Date Activity User E-sign Co-sign Detail Recorded Client Recorded Date Recorded By Document 09/14/23 11:23 [facility] Desktop 09/14/23 11:24 [facility] 09/14/23 11:23 Wound Care Center Nurse 3 #1 L Medial LE -Primary Dressing Applied Mepilex Border -Other Dressing theraskin; -Other Covering leg lotioned -Mepilex Border 1 Left -Tubular Bandage Single Layer -Size of Tubigrip Used Size D -Size D ($) 1 Treatment Response Procedure Tolerated Well Pain Scale: 0-10 Numeric Is Patient Pain Free? 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 All findings were discussed with the patient. All questions were answered to the patient's satisfaction. Excisional debridement of full-thickness ulceration to the medial aspect of the left leg down to and including subcutaneous tissue with number 5 mm dermal curette without incident. Predebridement measurement was 0.8 x 0.3 x 0.1 cm. Postdebridement measurement is 0.9 x 0.4 x 0.1 cm. Application of TheraSkin skin substitute measuring 1.75 cm x 1.75 cm, 3 cm?, was applied to the full-thickness ulceration to the left medial leg after debridement. Fourth application, 100% of the TheraSkin was used. The TheraSkin was secured with Dermabond followed by nonadherent bandage secured in place with Steri-Strips followed by bolster dressing as well as a single layer Tubigrip. Follow-up at the wound care center with Dr. Salas in 1 week. (2) Pain in left leg: CODE(S): M79.605 - Pain in left leg
[2023-09-21 10:25] VITALS: BP 126/71; PULSE 83; RESP 18; TEMP 36.7
--- NOTE | 2023-09-21 11:10 | PCM.WC.PN ---
History of Present Illness Date of Service: 09/21/23 Chief Complaint: Left leg ulceration History of Wound: Left leg ulceration Subjective Subjective Mrs. Mathis is a 77-year-old female presenting to clinic today for follow-up evaluation of left full-thickness ulceration and application of skin graft substitute, TheraSkin. Patient has left her skin graft substitute clean dry and intact. She denies any strikethrough. She has left her dressing clean dry and intact. She denies trauma. Denies constitutional symptoms. No other pedal complaints at this time. Objective Data Objective Data Vital Signs: Vital Signs Temp Pulse Resp BP O2 Del Method 98.0 F 83 18 126/71 H Room Air 09/21/23 10:25 09/21/23 10:25 09/21/23 10:25 09/21/23 10:09/21/23 10:25 Oxygen Delivery Method Room Air Weight: 53.524 kg Body Mass Index (BMI) 0.0 Physical Exam Narrative Vascular: DP and PT pulses are palpable. CFT is brisk. Evidence of varicose is appreciated bilateral lower extremity. Nonpitting edema appreciated bilateral lower extremity. Neurological: Light touch intact. Patient response to painful stimuli. Dermatological:. Evidence of healed incision proximal and distal to the full-thickness ulceration to the left leg. 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 Full-thickness ulceration to the medial aspect of the left leg measuring 0.7 x 0.4 x 0.1 cm. Excisional debridement of full-thickness ulceration to the medial aspect of the left leg down to and including subcutaneous tissue with number 5 mm dermal curette without incident. Predebridement measurement was 0.6 x 0.4 x 0.1 cm. Postdebridement measurement is 0.7 x 0.4 x 0.1 cm. Application of TheraSkin skin substitute measuring 2.5 cm x 2.5 cm, 3 cm?, was applied to the full-thickness ulceration to the left medial leg after debridement. Fifth application, 100% of the TheraSkin was used. The TheraSkin was secured with Dermabond followed by nonadherent bandage secured in place with Steri-Strips followed by bolster dressing as well as a single layer Tubigrip. Musculoskeletal: Pain with palpation to the full-thickness ulceration to the left leg. Palpable calcification appreciated to the bilateral lower extremity. No pain with calf compression bilateral Debridement Note Debridement Note Debridement Free Text: Excisional debridement of full-thickness ulceration to the medial aspect of the left leg down to and including subcutaneous tissue with number 5 mm dermal curette without incident. Predebridement measurement was 0.6 x 0.4 x 0.1 cm. Postdebridement measurement is 0.7 x 0.4 x 0.1 cm. Application of TheraSkin skin substitute measuring 2.5 cm x 2.5 cm, 3 cm?, was applied to the full-thickness ulceration to the left medial leg after debridement. Fifth application, 100% of the TheraSkin was used. The TheraSkin was secured with Dermabond followed by nonadherent bandage secured in place with Steri-Strips followed by bolster dressing as well as a single layer Tubigrip. 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 ) ) Arrival Mode Ambulatory Ambulatory Transfer Assistance None Patient Identification Verified (Name & Yes Yes ) Patient Requires Transmission-Based No Precautions Height and Weight Body Mass Index (BMI) 0.0 0.0 BMI Classification Underweight Underweight Vital Signs Temperature (97.8 F-99.1 F) 97.0 F L 98.0 F Temperature Source Temporal Temporal Pulse Rate (60-100) 79 83 Pulse Location Monitor Monitor Respiratory Rate (12-18) 18 18 Respiratory rate source Observation Observation Oxygen Delivery Method Room Air Room Air Blood Pressure (90/60-120/80) 134/69 H 126/71 H Blood Pressure Mean (mm Hg) 90 89 Source Monitor Monitor Position Semi-Fowlers Semi-Fowlers Blood Pressure Location Right Arm Left Arm History Since Last Visit- (Skip if this is Patient's initial visit) Have you changed medications since your No No last visit? Any new allergies or adverse reactions No No Had a fall/change in ADL's that may No No increase risk of falls Signs or symptoms of abuse and/or No neglect since last visit Have you been in the hospital since your No last visit? Has dressing in place as prescribed Yes Yes Has compression in place as prescribed Yes Yes Has offloadiing in place as prescribed N/A No Experienced any changes in pain level or No No management Left Footwear Regular Shoe Regular Shoe Right Footwear Regular Shoe Regular Shoe Pain Scale: 0-10 Numeric Is Patient Pain Free? Yes Yes WC - Nurse 1 - General Ulcer Measurement Start: 09/14/23 10:17 Freq: Status: Active Protocol: Activity Type Activity Date Activity User E-sign Co-sign Detail Recorded Client Recorded Date Recorded By Document 09/14/23 10:17 GM Desktop 09/14/23 10:24 GM Document 09/21/23 10:25 KW Desktop 09/21/23 10:36 KW 09/14/23 09/21/23 10:17 10:25 Wound Center Nurse 1 #1 L Medial LE -Current Size (cm) - Length 1.7 0.6 -Current Size (cm) - Width 1.3 0.3 -Current Size (cm) - Depth 0.1 0.1 -Total Square Cm 2.21 0.18 -Date of Last Picture (Recall this 09/14/23 field) -Photo Taken No -Epithelialization None Present Large 67-100% -Tunneling No No -Undermining/Tunneling No No -Circular Undermining No No -Exudate Amt Medium Small -Exudate Type Sanguineous Serous -Wound Margin Distinct, Distinct, Outline Outline Attached Attached -Granulation Amt None Present (0 Medium (34-66%) %) -Granulation Quality N/A [place] -Slough/Fibrin Yes -Necrosis Amt Small (1-33%) -Structure Exposed N/A N/A -Texture (Isi-wound Skin Appearance) Assessed Assessed, Scarring -Moisture (Isi-wound Skin Appearance) Assessed Assessed -Color (Isi-wound Skin Appearance) Assessed Assessed -Temperature (Isi-wound Skin No Abnormality No Abnormality Appearance) (Pt Warm) (Pt Warm) -Tenderness on Palpation (Isi-wound No No Skin Appearance) -Ulcer Cleansing Soap and Water Soap and Water -Foul Odor after Cleansing No No -Anesthetic Used 5% Lidocaine 5% Lidocaine Gel Gel Lower Limb Edema Present No Right Calf (cm) 35 Right Ankle (cm) 20 Left Calf (cm) 34.2 Left Ankle (cm) 20.5 - Nurse 2 - General Ulcer CM Notes Start: 09/14/23 10:17 Freq: Status: Active Protocol: Activity Type Activity Date Activity User E-sign Co-sign Detail Recorded Client Recorded Date Recorded By Document 09/14/23 11:06 Laptop 09/14/23 11:14 Document 09/21/23 10:49 Laptop 09/21/23 10:52 09/14/23 09/21/23 11:06 10:49 Wound Center Nurse 2 #1 L Medial LE -Time 11:12 10:49 -Correct Patient Yes Yes -Correct Side, Site, Position Yes Yes -Correct Procedure Yes Yes -Procedure Performed Yes Yes -Type of Procedure Debridement Debridement -Clinical Debridement Subcutaneous Subcutaneous -Tissue Removed Subcutaneous Subcutaneous -Post Debridement (cm) - Length 0.9 0.7 -Post Debridement (cm) - Width 0.4 0.4 -Post Debridement (cm) - Depth 0.2 0.1 -Total Square (Post) (cm) 0.36 0.28 -Area of Debridement (cm) - Length 0.9 0.7 -Area of Debridement (cm) - Width 0.4 0.4 -Total Square (Area) (cm) 0.36 0.28 -Tunneling No No -Undermining/Tunneling No No -Circular Undermining No No -Wound/Ulcer Outcome Not Healed Not Healed -Ulcer Cleansing Rinsed/ Rinsed/ Irrigated with Irrigated with Saline Saline -Foul Odor after Cleansing No No -Bioengineered Tissue Yes Yes -Type of Bioengineered Tissue Theraskin Theraskin -Expiration Date 10/21/27 05/23/28 -Product Lot Number [id number] -Percent Used 100 100 -Lot number of Saline Used [id number] -Bleeding Controlled with Pressure Pressure -Treatment Response Procedure Procedure Tolerated Well Tolerated Well -Offloading No No -Debridement - Subq, 1st 20sq cm No No -Apply Skin Sub - 1st 25 sq cm - Legs 1 1 -Theraskin (per sq cm) 3 6 Pain Scale: 0-10 Numeric Is Patient Pain Free? Yes Yes - Nurse 3 - General Ulcer D/C NN Start: 09/14/23 10:17 Freq: Status: Active Protocol: Activity Type Activity Date Activity User E-sign Co-sign Detail Recorded Client Recorded Date Recorded By Document 09/14/23 11:23 [facility] Desktop 09/14/23 11:24 [facility] Document 09/21/23 10:54 KW Desktop 09/21/23 10:55 KW 09/14/23 09/21/23 11:23 10:54 Wound Care Center Nurse 3 #1 L Medial LE -Primary Dressing Applied Mepilex Border Mepilex Border -Other Dressing theraskin; -Other Covering leg lotioned -Mepilex Border 1 1 Left -Tubular Bandage Single Layer Single Layer -Size of Tubigrip Used Size D Size D -Size D ($) 1 1 Treatment Response Procedure Tolerated Well Pain Scale: 0-10 Numeric Is Patient Pain Free? 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 All findings were discussed with the patient. All questions were answered to the patient's satisfaction. Excisional debridement of full-thickness ulceration to the medial aspect of the left leg down to and including subcutaneous tissue with number 5 mm dermal curette without incident. Predebridement measurement was 0.6 x 0.4 x 0.1 cm. Postdebridement measurement is 0.7 x 0.4 x 0.1 cm. Application of TheraSkin skin substitute measuring 2.5 cm x 2.5 cm, 3 cm?, was applied to the full-thickness ulceration to the left medial leg after debridement. Fifth application, 100% of the TheraSkin was used. The TheraSkin was secured with Dermabond followed by nonadherent bandage secured in place with Steri-Strips followed by bolster dressing as well as a single layer Tubigrip. Follow-up at the wound care center with Dr. Salas in 1 week. (2) PVD (peripheral vascular disease): CODE(S): I73.9 - Peripheral vascular disease, unspecified
[2023-09-28 10:43] VITALS: BP 121/75; PULSE 81; RESP 16
--- NOTE | 2023-09-28 11:07 | PN.PCM_ITS ---
History of Present Illness Date of Service: 09/28/23 Chief Complaint: Left leg ulceration History of Wound: Left leg ulceration Subjective Subjective Mrs. Mathis is a 77-year-old female presenting to clinic today for follow-up evaluation of left full-thickness ulceration and application of skin graft substitute, TheraSkin. Patient has left her skin graft substitute clean dry and intact. She denies any strikethrough. She has left her dressing clean dry and intact. She denies trauma. Denies constitutional symptoms. No other pedal complaints at this time. Objective Data Objective Data Vital Signs: Vital Signs Temp Pulse Resp BP O2 Del Method 98.0 F 81 16 121/75 H Room Air 09/21/23 10:25 09/28/23 10:43 09/28/23 10:43 09/28/23 10:43 09/28/23 10:43 Oxygen Delivery Method Room Air Weight: 53.524 kg Body Mass Index (BMI) 0.0 Physical Exam Narrative Vascular: DP and PT pulses are palpable. CFT is brisk. Evidence of varicose is appreciated bilateral lower extremity. Nonpitting edema appreciated bilateral lower extremity. Neurological: Light touch intact. Patient response to painful stimuli. Dermatological:. Evidence of healed incision proximal and distal to the full- thickness ulceration to the left leg. 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 Full-thickness ulceration to the medial aspect of the left leg measuring 0.4 x 0.4 x 0.2 cm. Excisional debridement of full-thickness ulceration to the medial aspect of the left leg down to and including subcutaneous tissue with number 5 mm dermal curette without incident. Predebridement measurement was 0.3 x 0.4 x 0.1 cm. Postdebridement measurement is 0.4 x 0.4 x 0.2 cm. Application of TheraSkin skin substitute measuring 2.5 cm x 2.5 cm, 3 cm?, was applied to the full-thickness ulceration to the left medial leg after debridement. Sixth application, 100% of the TheraSkin was used. The TheraSkin was secured with Dermabond followed by nonadherent bandage secured in place with Steri-Strips followed by bolster dressing as well as a single layer Tubigrip. Musculoskeletal: Pain with palpation to the full-thickness ulceration to the left leg. Palpable calcification appreciated to the bilateral lower extremity. No pain with calf compression bilateral Debridement Note Debridement Note Post-Debridement Measurements and Additional Note: Post-Debridement Measurements/Treatment WC - Nurse 1 - General Ulcer Assessment Start: 09/14/23 10:17 Freq: Status: Active Protocol: BALTAZAR Activity Type Activity Date Activity User E-sign Co-sign Detail Recorded Client Recorded Date Recorded By Document 09/14/23 10:17 GM Desktop 09/14/23 10:24 GM Document 09/21/23 10:25 KW Desktop 09/21/23 10:36 KW Document 09/28/23 10:43 KW Desktop 09/28/23 10:48 KW 09/14/23 09/21/23 09/28/23 10:17 10:25 10:43 - Today's Visit Information Type of service Follow-up Visit Follow-up Visit Follow-up Visit (Physician/DONKEY DOCTOR (Physician/DONKEY DOCTOR (Physician/DONKEY DOCTOR ) ) ) Arrival Mode Ambulatory Ambulatory Ambulatory Transfer Assistance None Patient Identification Verified (Name & Yes Yes Yes ) Patient Requires Transmission-Based No Precautions Height and Weight Body Mass Index (BMI) 0.0 0.0 0.0 BMI Classification Underweight Underweight Underweight Vital Signs Temperature (97.8 F-99.1 F) 97.0 F L 98.0 F Temperature Source Temporal Temporal Pulse Rate (60-100) 79 83 81 Pulse Location Monitor Monitor Monitor Respiratory Rate (12-18) 18 18 16 Respiratory rate source Observation Observation Observation Oxygen Delivery Method Room Air Room Air Room Air Blood Pressure (90/60-120/80) 134/69 H 126/71 H 121/75 H Blood Pressure Mean (mm Hg) 90 89 90 Source Monitor Monitor Monitor Position Semi-Fowlers Semi-Fowlers Semi-Fowlers Blood Pressure Location Right Arm Left Arm Left Arm History Since Last Visit- (Skip if this is Patient's initial visit) Have you changed medications since your No No No last visit? Any new allergies or adverse reactions No No No Had a fall/change in ADL's that may No No No increase risk of falls Signs or symptoms of abuse and/or No No neglect since last visit Have you been in the hospital since your No No last visit? Has dressing in place as prescribed Yes Yes Yes Has compression in place as prescribed Yes Yes Yes Has offloadiing in place as prescribed N/A No N/A Experienced any changes in pain level or No No No management Left Footwear Regular Shoe Regular Shoe Regular Shoe Right Footwear Regular Shoe Regular Shoe Regular Shoe Pain Scale: 0-10 Numeric Is Patient Pain Free? Yes Yes Yes WC - Nurse 1 - General Ulcer Measurement Start: 09/14/23 10:17 Freq: Status: Active Protocol: Activity Type Activity Date Activity User E-sign Co-sign Detail Recorded Client Recorded Date Recorded By Document 09/14/23 10:17 GM Desktop 09/14/23 10:24 GM Document 09/21/23 10:25 KW Desktop 09/21/23 10:36 KW Document 09/28/23 10:43 KW Desktop 09/28/23 10:48 KW 09/14/23 09/21/23 09/28/23 10:17 10:25 10:43 Wound Center Nurse 1 #1 L Medial LE -Current Size (cm) - Length 1.7 0.6 1.2 -Current Size (cm) - Width 1.3 0.3 1.8 -Current Size (cm) - Depth 0.1 0.1 0.1 -Total Square Cm 2.21 0.18 2.16 -Date of Last Picture (Recall this 09/14/23 field) -Photo Taken No -Epithelialization None Present Large 67-100% -Tunneling No No -Undermining/Tunneling No No -Circular Undermining No No -Exudate Amt Medium Small Small -Exudate Type Sanguineous Serous Serosanguineous -Wound Margin Distinct, Distinct, Distinct, Outline Outline Outline Attached Attached Attached -Granulation Amt None Present (0 Medium (34-66%) %) -Granulation Quality N/A [place] -Slough/Fibrin Yes -Necrosis Amt Small (1-33%) -Structure Exposed N/A N/A -Texture (Isi-wound Skin Appearance) Assessed Assessed, Assessed Scarring -Moisture (Isi-wound Skin Appearance) Assessed Assessed Assessed -Color (Isi-wound Skin Appearance) Assessed Assessed Assessed -Temperature (Isi-wound Skin No Abnormality No Abnormality No Abnormality Appearance) (Pt Warm) (Pt Warm) (Pt Warm) -Tenderness on Palpation (Isi-wound No No Yes Skin Appearance) -Ulcer Cleansing Soap and Water Soap and Water Soap and Water -Foul Odor after Cleansing No No -Anesthetic Used 5% Lidocaine 5% Lidocaine 5% Lidocaine Gel Gel Gel -Wound Comment(s) scabbed Lower Limb Edema Present No Right Calf (cm) 35 Right Ankle (cm) 20 Left Calf (cm) 34.2 34 Left Ankle (cm) 20.5 20.5 WC - Nurse 2 - General Ulcer CM Notes Start: 09/14/23 10:17 Freq: Status: Active Protocol: Activity Type Activity Date Activity User E-sign Co-sign Detail Recorded Client Recorded Date Recorded By Document 09/14/23 11:06 Laptop 09/14/23 11:14 Document 09/21/23 10:49 Laptop 09/21/23 10:52 Document 09/28/23 10:55 Laptop 09/28/23 11:03 09/14/23 09/21/23 09/28/23 11:06 10:49 10:55 Wound Center Nurse 2 #1 L Medial LE -Time 11:12 10:49 10:56 -Correct Patient Yes Yes Yes -Correct Side, Site, Position Yes Yes Yes -Correct Procedure Yes Yes Yes -Procedure Performed Yes Yes Yes -Type of Procedure Debridement Debridement Debridement -Clinical Debridement Subcutaneous Subcutaneous Subcutaneous -Tissue Removed Subcutaneous Subcutaneous Subcutaneous -Post Debridement (cm) - Length 0.9 0.7 0.4 -Post Debridement (cm) - Width 0.4 0.4 0.4 -Post Debridement (cm) - Depth 0.2 0.1 0.2 -Total Square (Post) (cm) 0.36 0.28 0.16 -Area of Debridement (cm) - Length 0.9 0.7 0.4 -Area of Debridement (cm) - Width 0.4 0.4 0.4 -Total Square (Area) (cm) 0.36 0.28 0.16 -Tunneling No No No -Undermining/Tunneling No No No -Circular Undermining No No No -Wound/Ulcer Outcome Not Healed Not Healed Not Healed -Ulcer Cleansing Rinsed/ Rinsed/ Rinsed/ Irrigated with Irrigated with Irrigated with Saline Saline Saline -Foul Odor after Cleansing No No No -Bioengineered Tissue Yes Yes Yes -Type of Bioengineered Tissue Theraskin Theraskin Theraskin -Expiration Date 10/21/27 05/23/28 10/21/27 -Product Lot Number [id number] -Percent Used 100 100 100 -Lot number of Saline Used [id number] -Bleeding Controlled with Pressure Pressure Pressure -Treatment Response Procedure Procedure Procedure Tolerated Well Tolerated Well Tolerated Well -Offloading No No No -Debridement - Subq, 1st 20sq cm No No No -Apply Skin Sub - 1st 25 sq cm - Legs 1 1 1 -Theraskin (per sq cm) 3 6 3 Pain Scale: 0-10 Numeric Is Patient Pain Free? Yes Yes Yes WC - Nurse 3 - General Ulcer D/C NN Start: 09/14/23 10:17 Freq: Status: Active Protocol: Activity Type Activity Date Activity User E-sign Co-sign Detail Recorded Client Recorded Date Recorded By Document 09/14/23 11:23 [employer] 09/14/23 11:24 [employer] Document 09/21/23 10:54 KW Desktop 09/21/23 10:55 KW 09/14/23 09/21/23 11:23 10:54 Wound Care Center Nurse 3 #1 L Medial LE -Primary Dressing Applied Mepilex Border Mepilex Border -Other Dressing theraskin; -Other Covering leg lotioned -Mepilex Border 1 1 Left -Tubular Bandage Single Layer Single Layer -Size of Tubigrip Used Size D Size D -Size D ($) 1 1 Treatment Response Procedure Tolerated Well Pain Scale: 0-10 Numeric Is Patient Pain Free? 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 All findings were discussed with the patient. All questions were answered to the patient's satisfaction. Excisional debridement of full-thickness ulceration to the medial aspect of the left leg down to and including subcutaneous tissue with number 5 mm dermal curette without incident. Predebridement measurement was 0.3 x 0.4 x 0.1 cm. Postdebridement measurement is 0.4 x 0.4 x 0.2 cm. Application of TheraSkin skin substitute measuring 2.5 cm x 2.5 cm, 3 cm?, was applied to the full-thickness ulceration to the left medial leg after debridement. Sixth application, 100% of the TheraSkin was used. The TheraSkin was secured with Dermabond followed by nonadherent bandage secured in place with Steri-Strips followed by bolster dressing as well as a single layer Tubigrip. Follow-up at the wound care center with Dr. Salas in 1 week. (2) PVD (peripheral vascular disease): CODE(S): I73.9 - Peripheral vascular disease, unspecified
[2023-10-05 10:25] VITALS: BP 115/67; PULSE 77; RESP 16; TEMP 36.6
--- NOTE | 2023-10-05 11:01 | PN.PCM_ITS ---
History of Present Illness Date of Service: 10/05/23 Chief Complaint: Left leg ulceration History of Wound: Left leg ulceration Subjective Subjective Mrs. Mathis is a 77-year-old female presenting to clinic today for follow-up evaluation of left full-thickness ulceration and application of skin graft substitute, TheraSkin. Patient has left her skin graft substitute clean dry and intact. She denies any strikethrough. She has left her dressing clean dry and intact. She denies trauma. Denies constitutional symptoms. No other pedal complaints at this time. Objective Data Objective Data Vital Signs: Vital Signs Temp Pulse Resp BP O2 Del Method 97.8 F 77 16 115/67 Room Air 10/05/23 10:25 10/05/23 10:25 10/05/23 10:25 10/05/23 10:10/05/23 10:25 Oxygen Delivery Method Room Air Weight: 53.524 kg Body Mass Index (BMI) 0.0 Physical Exam Narrative Vascular: DP and PT pulses are palpable. CFT is brisk. Evidence of varicose is appreciated bilateral lower extremity. Nonpitting edema appreciated bilateral lower extremity. Neurological: Light touch intact. Patient response to painful stimuli. Dermatological:. Evidence of healed incision proximal and distal to the full- thickness ulceration to the left leg. 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 Full-thickness ulceration to the medial aspect of the left leg measuring 0.3 x 0.3 x 0.2 cm. Excisional debridement of full-thickness ulceration to the medial aspect of the left leg down to and including subcutaneous tissue with number 5 mm dermal curette without incident. Predebridement measurement was 0.3 x 0.2 x 0.1 cm. Postdebridement measurement is 0.3 x 0.3 x 0.2 cm. Application of TheraSkin skin substitute measuring 2.5 cm x 2.5 cm, 3 cm?, was applied to the full-thickness ulceration to the left medial leg after debridement. Seventh application, 100% of the TheraSkin was used. The TheraSkin was secured with Dermabond followed by nonadherent bandage secured in place with Steri-Strips followed by bolster dressing as well as a single layer Tubigrip. Musculoskeletal: Pain with palpation to the full-thickness ulceration to the left leg. Palpable calcification appreciated to the bilateral lower extremity. No pain with calf compression bilateral Debridement Note Debridement Note Debridement Free Text: Excisional debridement of full-thickness ulceration to the medial aspect of the left leg down to and including subcutaneous tissue with number 5 mm dermal curette without incident. Predebridement measurement was 0.3 x 0.2 x 0.1 cm. Postdebridement measurement is 0.3 x 0.3 x 0.2 cm. Application of TheraSkin skin substitute measuring 2.5 cm x 2.5 cm, 3 cm?, was applied to the full-thickness ulceration to the left medial leg after debridement. Seventh application, 100% of the TheraSkin was used. The TheraSkin was secured with Dermabond followed by nonadherent bandage secured in place with Steri-Strips followed by bolster dressing as well as a single layer Tubigrip. Post-Debridement Measurements and Additional Note: Post-Debridement Measurements/Treatment WC - Nurse 1 - General Ulcer Assessment Start: 09/14/23 10:17 Freq: Status: Active Protocol: BALTAZAR Activity Type Activity Date Activity User E-sign Co-sign Detail Recorded Client Recorded Date Recorded By Document 09/14/23 10:17 [employer] 09/14/23 10:24 GM Document 09/21/23 10:25 [email or web address] 09/21/23 10:36 KW Document 09/28/23 10:43 KW [employer] 09/28/23 10:48 KW Document 10/05/23 10:25 [id number] 10/05/23 10:39 GM 09/14/23 09/21/23 09/28/23 10:17 10:25 10:43 - Today's Visit Information Type of service Follow-up Visit Follow-up Visit Follow-up Visit (Physician/TIE UP WORKER (Physician/TIE UP WORKER (Physician/TIE UP WORKER ) ) ) Arrival Mode Ambulatory Ambulatory Ambulatory Transfer Assistance None Patient Identification Verified (Name & Yes Yes Yes ) Patient Requires Transmission-Based No Precautions Height and Weight Body Mass Index (BMI) 0.0 0.0 0.0 BMI Classification Underweight Underweight Underweight Vital Signs Temperature (97.8 F-99.1 F) 97.0 F L 98.0 F Temperature Source Temporal Temporal Pulse Rate (60-100) 79 83 81 Pulse Location Monitor Monitor Monitor Respiratory Rate (12-18) 18 18 16 Respiratory rate source Observation Observation Observation Oxygen Delivery Method Room Air Room Air Room Air Blood Pressure (90/60-120/80) 134/69 H 126/71 H 121/75 H Blood Pressure Mean (mm Hg) 90 89 90 Source Monitor Monitor Monitor Position Semi-Fowlers Semi-Fowlers Semi-Fowlers Blood Pressure Location Right Arm Left Arm Left Arm History Since Last Visit- (Skip if this is Patient's initial visit) Have you changed medications since your No No No last visit? Any new allergies or adverse reactions No No No Had a fall/change in ADL's that may No No No increase risk of falls Signs or symptoms of abuse and/or No No neglect since last visit Have you been in the hospital since your No No last visit? Has dressing in place as prescribed Yes Yes Yes Has compression in place as prescribed Yes Yes Yes Has offloadiing in place as prescribed N/A No N/A Experienced any changes in pain level or No No No management Left Footwear Regular Shoe Regular Shoe Regular Shoe Right Footwear Regular Shoe Regular Shoe Regular Shoe Pain Scale: 0-10 Numeric Is Patient Pain Free? Yes Yes Yes 10/05/23 10:25 WC - Today's Visit Information Type of service Follow-up Visit (Physician/TIE UP WORKER ) Arrival Mode Ambulatory Transfer Assistance None Patient Identification Verified (Name & Yes ) Patient Requires Transmission-Based No Precautions Height and Weight Body Mass Index (BMI) 0.0 BMI Classification Underweight Vital Signs Temperature (97.8 F-99.1 F) 97.8 F Temperature Source Temporal Pulse Rate (60-100) 77 Pulse Location Monitor Respiratory Rate (12-18) 16 Respiratory rate source Observation Oxygen Delivery Method Room Air Blood Pressure (90/60-120/80) 115/67 Blood Pressure Mean (mm Hg) 83 Source Monitor Position Sitting Blood Pressure Location Left Arm History Since Last Visit- (Skip if this is Patient's initial visit) Have you changed medications since your No last visit? Any new allergies or adverse reactions No Had a fall/change in ADL's that may No increase risk of falls Signs or symptoms of abuse and/or No neglect since last visit Have you been in the hospital since your No last visit? Has dressing in place as prescribed Yes Has compression in place as prescribed Yes Has offloadiing in place as prescribed No Experienced any changes in pain level or No management Left Footwear Regular Shoe Right Footwear Pain Scale: 0-10 Numeric Is Patient Pain Free? Yes WC - Nurse 1 - General Ulcer Measurement Start: 09/14/23 10:17 Freq: Status: Active Protocol: Activity Type Activity Date Activity User E-sign Co-sign Detail Recorded Client Recorded Date Recorded By Document 09/14/23 10:17 GM Desktop 09/14/23 10:24 GM Document 09/21/23 10:25 KW Desktop 09/21/23 10:36 KW Document 09/28/23 10:43 KW Desktop 09/28/23 10:48 KW Document 10/05/23 10:25 [email or web address] 10/05/23 10:39 GM 09/14/23 09/21/23 09/28/23 10:17 10:25 10:43 Wound Center Nurse 1 #1 L Medial LE -Current Size (cm) - Length 1.7 0.6 1.2 -Current Size (cm) - Width 1.3 0.3 1.8 -Current Size (cm) - Depth 0.1 0.1 0.1 -Total Square Cm 2.21 0.18 2.16 -Date of Last Picture (Recall this 09/14/23 field) -Photo Taken No -Epithelialization None Present Large 67-100% -Tunneling No No -Undermining/Tunneling No No -Circular Undermining No No -Change in Wound Grade/Stage -Exudate Amt Medium Small Small -Exudate Type Sanguineous Serous Serosanguineous -Wound Margin Distinct, Distinct, Distinct, Outline Outline Outline Attached Attached Attached -Granulation Amt None Present (0 Medium (34-66%) %) -Granulation Quality N/A [place] -Slough/Fibrin Yes -Necrosis Amt Small (1-33%) -Structure Exposed N/A N/A -Texture (Isi-wound Skin Appearance) Assessed Assessed, Assessed Scarring -Moisture (Isi-wound Skin Appearance) Assessed Assessed Assessed -Color (Isi-wound Skin Appearance) Assessed Assessed Assessed -Temperature (Isi-wound Skin No Abnormality No Abnormality No Abnormality Appearance) (Pt Warm) (Pt Warm) (Pt Warm) -Tenderness on Palpation (Isi-wound No No Yes Skin Appearance) -Ulcer Cleansing Soap and Water Soap and Water Soap and Water -Foul Odor after Cleansing No No -Anesthetic Used 5% Lidocaine 5% Lidocaine 5% Lidocaine Gel Gel Gel -Wound Comment(s) scabbed Lower Limb Edema Present No Right Calf (cm) 35 Right Ankle (cm) 20 Left Calf (cm) 34.2 34 Point of measurement (cm from the medial instep) Left Ankle (cm) 20.5 20.5 Point of Measurement (cm from the medial instep) 10/05/23 10:25 Wound Center Nurse 1 #1 L Medial LE -Current Size (cm) - Length 0.4 -Current Size (cm) - Width 0.4 -Current Size (cm) - Depth 0.1 -Total Square Cm 0.16 -Date of Last Picture (Recall this 10/05/23 field) -Photo Taken Yes -Epithelialization -Tunneling No -Undermining/Tunneling No -Circular Undermining No -Change in Wound Grade/Stage No -Exudate Amt Small -Exudate Type Sanguineous -Wound Margin Distinct, Outline Attached -Granulation Amt Large (67-100%) -Granulation Quality Red -Slough/Fibrin No -Necrosis Amt None Present (0 %) -Structure Exposed -Texture (Isi-wound Skin Appearance) Assessed -Moisture (Isi-wound Skin Appearance) Assessed -Color (Isi-wound Skin Appearance) Assessed -Temperature (Isi-wound Skin No Abnormality Appearance) (Pt Warm) -Tenderness on Palpation (Isi-wound Skin Appearance) -Ulcer Cleansing Soap and Water -Foul Odor after Cleansing No -Anesthetic Used 5% Lidocaine Gel -Wound Comment(s) Lower Limb Edema Present Right Calf (cm) Right Ankle (cm) Left Calf (cm) Point of measurement (cm from the medial 35.5 instep) Left Ankle (cm) Point of Measurement (cm from the medial 21.4 instep) WC - Nurse 2 - General Ulcer CM Notes Start: 09/14/23 10:17 Freq: Status: Active Protocol: Activity Type Activity Date Activity User E-sign Co-sign Detail Recorded Client Recorded Date Recorded By Document 09/14/23 11:06 Laptop 09/14/23 11:14 Document 09/21/23 10:49 Laptop 09/21/23 10:52 Document 09/28/23 10:55 Laptop 09/28/23 11:03 Document 10/05/23 10:48 Laptop 10/05/23 10:49 01/12/0309/21/23 09/28/23 11:06 10:49 10:55 Wound Center Nurse 2 #1 L [facility] LE -Time 11:12 10:49 10:56 -Correct Patient Yes Yes Yes -Correct Side, Site, Position Yes Yes Yes -Correct Procedure Yes Yes Yes -Procedure Performed Yes Yes Yes -Type of Procedure Debridement Debridement Debridement -Clinical Debridement Subcutaneous Subcutaneous Subcutaneous -Tissue Removed Subcutaneous Subcutaneous Subcutaneous -Post Debridement (cm) - Length 0.9 0.7 0.4 -Post Debridement (cm) - Width 0.4 0.4 0.4 -Post Debridement (cm) - Depth 0.2 0.1 0.2 -Total Square (Post) (cm) 0.36 0.28 0.16 -Area of Debridement (cm) - Length 0.9 0.7 0.4 -Area of Debridement (cm) - Width 0.4 0.4 0.4 -Total Square (Area) (cm) 0.36 0.28 0.16 -Tunneling No No No -Undermining/Tunneling No No No -Circular Undermining No No No -Wound/Ulcer Outcome Not Healed Not Healed Not Healed -Ulcer Cleansing Rinsed/ Rinsed/ Rinsed/ Irrigated with Irrigated with Irrigated with Saline Saline Saline -Foul Odor after Cleansing No No No -Bioengineered Tissue Yes Yes Yes -Type of Bioengineered Tissue -Type of Bioengineered Tissue Theraskin Theraskin Theraskin -Expiration Date 10/21/27 05/23/28 10/21/27 -Product Lot Number [id number] -Percent Used 100 100 100 -Lot number of Saline Used [id number] -Bleeding Controlled with Pressure Pressure Pressure -Treatment Response Procedure Procedure Procedure Tolerated Well Tolerated Well Tolerated Well -Offloading No No No -Debridement - Subq, 1st 20sq cm No No No -Apply Skin Sub - 1st 25 sq cm - Legs 1 1 1 -Theraskin (per sq cm) 3 6 3 -Theraskin - 3TS (3 SQ CM) (per sq cm) Pain Scale: 0-10 Numeric Is Patient Pain Free? Yes Yes Yes 10/05/23 10:48 Wound Center Nurse 2 #1 L [facility] LE -Time 10:48 -Correct Patient Yes -Correct Side, Site, Position Yes -Correct Procedure Yes -Procedure Performed Yes -Type of Procedure Debridement -Clinical Debridement Subcutaneous -Tissue Removed Subcutaneous -Post Debridement (cm) - Length 0.3 -Post Debridement (cm) - Width 0.3 -Post Debridement (cm) - Depth 0.2 -Total Square (Post) (cm) 0.09 -Area of Debridement (cm) - Length 0.3 -Area of Debridement (cm) - Width 0.3 -Total Square (Area) (cm) 0.09 -Tunneling No -Undermining/Tunneling No -Circular Undermining No -Wound/Ulcer Outcome Not Healed -Ulcer Cleansing Rinsed/ Irrigated with Saline -Foul Odor after Cleansing No -Bioengineered Tissue Yes -Type of Bioengineered Tissue [place] -Type of Bioengineered Tissue -Expiration Date 01/24/28 -Product Lot Number [id number] -Percent Used 100 -Lot number of Saline Used [id number] -Bleeding Controlled with Pressure -Treatment Response Procedure Tolerated Well -Offloading No -Debridement - Subq, 1st 20sq cm No -Apply Skin Sub - 1st 25 sq cm - Legs 1 -Theraskin (per sq cm) -Theraskin - 3TS (3 SQ CM) (per sq cm) 3 Pain Scale: 0-10 Numeric Is Patient Pain Free? Yes WC - Nurse 3 - General Ulcer D/C NN Start: 09/14/23 10:17 Freq: Status: Active Protocol: Activity Type Activity Date Activity User E-sign Co-sign Detail Recorded Client Recorded Date Recorded By Document 09/14/23 11:23 [facility] Desktop 09/14/23 11:24 [facility] Document 09/21/23 10:54 KW Desktop 09/21/23 10:55 KW Document 09/28/23 11:10 KW Desktop 09/28/23 11:12 KW Document 10/05/23 10:52 KW Desktop 10/05/23 10:53 KW 09/14/23 09/21/23 09/28/23 11:23 10:54 11:10 Wound Care Center Nurse 3 #1 L Medial LE -Primary Dressing Applied Mepilex Border Mepilex Border -Other Dressing theraskin; -Primary Dressing Covered/Secured with Dry Gauze & Roll Gauze, Secured with Tape -Other Covering leg lotioned -Mepilex Border 1 1 Left -Tubular Bandage Single Layer Single Layer Single Layer -Size of Tubigrip Used Size D Size D Size D -Size D ($) 1 1 1 Treatment Response Procedure Tolerated Well Pain Scale: 0-10 Numeric Is Patient Pain Free? Yes Yes Yes WC - Visit Discharge Discharge Condition Stable Stable Stable Ambulatory Status Ambulatory Ambulatory Transportation Private Auto Private Auto Private Auto Medication Reconcilliation completed & No No provided to patient/care provider Clinical Summary of Care Provided Yes Yes 10/05/23 10:52 Wound Care Center Nurse 3 #1 L Medial LE -Primary Dressing Applied -Other Dressing -Primary Dressing Covered/Secured with Dry Gauze & Roll Gauze, Secured with Tape -Other Covering -Mepilex Border Left -Tubular Bandage Single Layer -Size of Tubigrip Used Size D -Size D ($) 1 Treatment Response Pain Scale: 0-10 Numeric Is Patient Pain Free? Yes WC - Visit Discharge Discharge Condition Stable Ambulatory Status Ambulatory Transportation Private Auto Medication Reconcilliation completed & No provided to patient/care provider Clinical Summary of Care Provided Yes Assessment/Plan Assessment/Plan (1) 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 All findings were discussed with the patient. All questions were answered to the patient's satisfaction. Excisional debridement of full-thickness ulceration to the medial aspect of the left leg down to and including subcutaneous tissue with number 5 mm dermal curette without incident. Predebridement measurement was 0.3 x 0.2 x 0.1 cm. Postdebridement measurement is 0.3 x 0.3 x 0.2 cm. Application of TheraSkin skin substitute measuring 2.5 cm x 2.5 cm, 3 cm?, was applied to the full-thickness ulceration to the left medial leg after debridement. Seventh application, 100% of the TheraSkin was used. The TheraSkin was secured with Dermabond followed by nonadherent bandage secured in place with Steri-Strips followed by bolster dressing as well as a single layer Tubigrip. Follow-up at the wound care center with Dr. Salas in 1 week. (2) Pain in left leg: CODE(S): M79.605 - Pain in left leg (3) PVD (peripheral vascular disease): CODE(S): I73.9 - Peripheral vascular disease, unspecified
[2023-10-12 10:33] VITALS: BP 124/48; PULSE 83; RESP 18; TEMP 36.4
--- NOTE | 2023-10-12 11:47 | PN.PCM_ITS ---
History of Present Illness Date of Service: 10/12/23 Chief Complaint: Left leg ulceration History of Wound: Left leg ulceration Subjective Subjective Mrs. Mathis is a 77-year-old female presenting to clinic today for follow-up evaluation of left full-thickness ulceration and application of skin graft substitute, TheraSkin. Patient has left her skin graft substitute clean dry and intact. She denies any strikethrough. She has left her dressing clean dry and intact. She denies trauma. Denies constitutional symptoms. No other pedal complaints at this time. Objective Data Objective Data Vital Signs: Vital Signs Temp Pulse Resp BP O2 Del Method 97.5 F L 83 18 124/48 H Room Air 10/12/23 10:33 10/12/23 10:33 10/12/23 10:33 10/12/23 10:33 10/05/23 10:25 Oxygen Delivery Method Room Air Weight: 53.524 kg Body Mass Index (BMI) 0.0 Physical Exam Narrative Vascular: DP and PT pulses are palpable. CFT is brisk. Evidence of varicose is appreciated bilateral lower extremity. Nonpitting edema appreciated bilateral lower extremity. Neurological: Light touch intact. Patient response to painful stimuli. Dermatological: Evidence of healed incision proximal and distal to the full- thickness ulceration to the left leg. 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 Full-thickness ulceration to the medial aspect of the left leg is healed. Musculoskeletal: Pain with palpation to the full-thickness ulceration to the left leg. Palpable calcification appreciated to the bilateral lower extremity. No pain with calf compression bilateral Debridement Note Debridement Note Post-Debridement Measurements and Additional Note: Post-Debridement Measurements/Treatment - Nurse 1 - General Ulcer Assessment Start: 09/14/23 10:17 Freq: Status: Active Protocol: WC.LOWNANCY Activity Type Activity Date Activity User E-sign Co-sign Detail Recorded Client Recorded Date Recorded By Document 09/14/23 10:17 GM Desktop 09/14/23 10:24 GM Document 09/21/23 10:25 KW Desktop 09/21/23 10:36 KW Document 09/28/23 10:43 KW Desktop 09/28/23 10:48 KW Document 10/05/23 10:25 [id number] 10/05/23 10:39 GM Document 10/12/23 10:33 JF Laptop 10/12/23 10:37 JF 09/14/23 09/21/23 09/28/23 10:17 10:25 10:43 - Today's Visit Information Type of service Follow-up Visit Follow-up Visit Follow-up Visit (Physician/LIP CUTTER (Physician/LIP CUTTER (Physician/LIP CUTTER ) ) ) Arrival Mode Ambulatory Ambulatory Ambulatory Transfer Assistance None Patient Identification Verified (Name & Yes Yes Yes ) Patient Requires Transmission-Based No Precautions Height and Weight Body Mass Index (BMI) 0.0 0.0 0.0 BMI Classification Underweight Underweight Underweight Vital Signs Temperature (97.8 F-99.1 F) 97.0 F L 98.0 F Temperature Source Temporal Temporal Pulse Rate (60-100) 79 83 81 Pulse Location Monitor Monitor Monitor Respiratory Rate (12-18) 18 18 16 Respiratory rate source Observation Observation Observation Oxygen Delivery Method Room Air Room Air Room Air Blood Pressure (90/60-120/80) 134/69 H 126/71 H 121/75 H Blood Pressure Mean (mm Hg) 90 89 90 Source Monitor Monitor Monitor Position Semi-Fowlers Semi-Fowlers Semi-Fowlers Blood Pressure Location Right Arm Left Arm Left Arm History Since Last Visit- (Skip if this is Patient's initial visit) Have you changed medications since your No No No last visit? Any new allergies or adverse reactions No No No Had a fall/change in ADL's that may No No No increase risk of falls Signs or symptoms of abuse and/or No No neglect since last visit Have you been in the hospital since your No No last visit? Has dressing in place as prescribed Yes Yes Yes Has compression in place as prescribed Yes Yes Yes Has offloadiing in place as prescribed N/A No N/A Experienced any changes in pain level or No No No management Left Footwear Regular Shoe Regular Shoe Regular Shoe Right Footwear Regular Shoe Regular Shoe Regular Shoe Pain Scale: 0-10 Numeric Is Patient Pain Free? Yes Yes Yes 10/05/23 10/12/23 10:25 10:33 - Today's Visit Information Type of service Follow-up Visit Follow-up Visit (Physician/LIP CUTTER (Physician/LIP CUTTER ) ) Arrival Mode Ambulatory Ambulatory Transfer Assistance None None Patient Identification Verified (Name & Yes Yes ) Patient Requires Transmission-Based No No Precautions Height and Weight Body Mass Index (BMI) 0.0 0.0 BMI Classification Underweight Underweight Vital Signs Temperature (97.8 F-99.1 F) 97.8 F 97.5 F L Temperature Source Temporal Temporal Pulse Rate (60-100) 77 83 Pulse Location Monitor Monitor Respiratory Rate (12-18) 16 18 Respiratory rate source Observation Observation Oxygen Delivery Method Room Air Blood Pressure (90/60-120/80) 115/67 124/48 H Blood Pressure Mean (mm Hg) 83 73 Source Monitor Monitor Position Sitting Blood Pressure Location Left Arm History Since Last Visit- (Skip if this is Patient's initial visit) Have you changed medications since your No No last visit? Any new allergies or adverse reactions No No Had a fall/change in ADL's that may No No increase risk of falls Signs or symptoms of abuse and/or No No neglect since last visit Have you been in the hospital since your No No last visit? Has dressing in place as prescribed Yes Yes Has compression in place as prescribed Yes Yes Has offloadiing in place as prescribed No N/A Experienced any changes in pain level or No No management Left Footwear Regular Shoe Right Footwear Pain Scale: 0-10 Numeric Is Patient Pain Free? Yes Yes WC - Nurse 1 - General Ulcer Measurement Start: 09/14/23 10:17 Freq: Status: Active Protocol: Activity Type Activity Date Activity User E-sign Co-sign Detail Recorded Client Recorded Date Recorded By Document 09/14/23 10:17 [employer] 09/14/23 10:24 GM Document 09/21/23 10:25 [employer] 09/21/23 10:36 KW Document 09/28/23 10:43 [employer] 09/28/23 10:48 KW Document 10/05/23 10:25 [id number] 10/05/23 10:39 Document 10/12/23 10:33 [employer] Laptop 10/12/23 10:37 JF 09/14/23 09/21/23 09/28/23 10:17 10:25 10:43 Wound Center Nurse 1 #1 L Medial LE -Current Size (cm) - Length 1.7 0.6 1.2 -Current Size (cm) - Width 1.3 0.3 1.8 -Current Size (cm) - Depth 0.1 0.1 0.1 -Total Square Cm 2.21 0.18 2.16 -Date of Last Picture (Recall this 09/14/23 field) -Photo Taken No -Epithelialization None Present Large 67-100% -Tunneling No No -Undermining/Tunneling No No -Circular Undermining No No -Change in Wound Grade/Stage -Exudate Amt Medium Small Small -Exudate Type Sanguineous Serous Serosanguineous -Wound Margin Distinct, Distinct, Distinct, Outline Outline Outline Attached Attached Attached -Granulation Amt None Present (0 Medium (34-66%) %) -Granulation Quality N/A [place] -Slough/Fibrin Yes -Necrosis Amt Small (1-33%) -Structure Exposed N/A N/A -Texture (Isi-wound Skin Appearance) Assessed Assessed, Assessed Scarring -Moisture (Isi-wound Skin Appearance) Assessed Assessed Assessed -Color (Isi-wound Skin Appearance) Assessed Assessed Assessed -Temperature (Isi-wound Skin No Abnormality No Abnormality No Abnormality Appearance) (Pt Warm) (Pt Warm) (Pt Warm) -Tenderness on Palpation (Isi-wound No No Yes Skin Appearance) -Ulcer Cleansing Soap and Water Soap and Water Soap and Water -Foul Odor after Cleansing No No -Anesthetic Used 5% Lidocaine 5% Lidocaine 5% Lidocaine Gel Gel Gel -Wound Comment(s) scabbed Lower Limb Edema Present No Right Calf (cm) 35 Right Ankle (cm) 20 Left Calf (cm) 34.2 34 Point of measurement (cm from the medial instep) Left Ankle (cm) 20.5 20.5 Point of Measurement (cm from the medial instep) 10/05/23 10/12/23 10:25 10:33 Wound Center Nurse 1 #1 L Medial LE -Current Size (cm) - Length 0.4 0.1 -Current Size (cm) - Width 0.4 0.1 -Current Size (cm) - Depth 0.1 0.1 -Total Square Cm 0.16 0.01 -Date of Last Picture (Recall this 10/05/23 field) -Photo Taken Yes -Epithelialization -Tunneling No -Undermining/Tunneling No -Circular Undermining No -Change in Wound Grade/Stage No -Exudate Amt Small None Present -Exudate Type Sanguineous -Wound Margin Distinct, Flat & Intact Outline Attached -Granulation Amt Large (67-100%) Large (67-100%) -Granulation Quality [place] -Slough/Fibrin No -Necrosis Amt None Present (0 None Present (0 %) %) -Structure Exposed N/A -Texture (Isi-wound Skin Appearance) Assessed Scarring -Moisture (Isi-wound Skin Appearance) Assessed No Abnormality -Color (Isi-wound Skin Appearance) Assessed Hemosiderin Staining -Temperature (Isi-wound Skin No Abnormality No Abnormality Appearance) (Pt Warm) (Pt Warm) -Tenderness on Palpation (Isi-wound Skin Appearance) -Ulcer Cleansing Soap and Water Soap and Water -Foul Odor after Cleansing No No -Anesthetic Used 5% Lidocaine 4% Lidocaine Gel Solution -Wound Comment(s) Lower Limb Edema Present Right Calf (cm) Right Ankle (cm) Left Calf (cm) 33.3 Point of measurement (cm from the medial 35.5 instep) Left Ankle (cm) 20.7 Point of Measurement (cm from the medial 21.4 instep) WC - Nurse 2 - General Ulcer CM Notes Start: 09/14/23 10:17 Freq: Status: Active Protocol: Activity Type Activity Date Activity User E-sign Co-sign Detail Recorded Client Recorded Date Recorded By Document 09/14/23 11:06 [employer] Laptop 09/14/23 11:14 [employer] Document 09/21/23 10:49 [employer] Laptop 09/21/23 10:52 [employer] Document 09/28/23 10:55 [employer] Laptop 09/28/23 11:03 [employer] Document 10/05/23 10:48 [employer] Laptop 10/05/23 10:49 [employer] Document 10/12/23 10:44 [employer] Laptop 10/12/23 10:45 [employer] 09/14/23 09/21/23 09/28/23 11:06 10:49 10:55 Wound Center Nurse 2 #1 L Medial LE -Time 11:12 10:49 10:56 -Correct Patient Yes Yes Yes -Correct Side, Site, Position Yes Yes Yes -Correct Procedure Yes Yes Yes -Procedure Performed Yes Yes Yes -Type of Procedure Debridement Debridement Debridement -Clinical Debridement Subcutaneous Subcutaneous Subcutaneous -Tissue Removed Subcutaneous Subcutaneous Subcutaneous -Post Debridement (cm) - Length 0.9 0.7 0.4 -Post Debridement (cm) - Width 0.4 0.4 0.4 -Post Debridement (cm) - Depth 0.2 0.1 0.2 -Total Square (Post) (cm) 0.36 0.28 0.16 -Area of Debridement (cm) - Length 0.9 0.7 0.4 -Area of Debridement (cm) - Width 0.4 0.4 0.4 -Total Square (Area) (cm) 0.36 0.28 0.16 -Tunneling No No No -Undermining/Tunneling No No No -Circular Undermining No No No -Wound/Ulcer Outcome Not Healed Not Healed Not Healed -Ulcer Cleansing Rinsed/ Rinsed/ Rinsed/ Irrigated with Irrigated with Irrigated with Saline Saline Saline -Foul Odor after Cleansing No No No -Bioengineered Tissue Yes Yes Yes -Type of Bioengineered Tissue -Type of Bioengineered Tissue Theraskin Theraskin Theraskin -Expiration Date 10/21/27 05/23/28 10/21/27 -Product Lot Number [id number] -Percent Used 100 100 100 -Lot number of Saline Used [id number] -Bleeding Controlled with Pressure Pressure Pressure -Treatment Response Procedure Procedure Procedure Tolerated Well Tolerated Well Tolerated Well -Offloading No No No -Debridement - Subq, 1st 20sq cm No No No -Apply Skin Sub - 1st 25 sq cm - Legs 1 1 1 -Theraskin (per sq cm) 3 6 3 -Theraskin - 3TS (3 SQ CM) (per sq cm) Pain Scale: 0-10 Numeric Is Patient Pain Free? Yes Yes Yes 10/05/23 10/12/23 10:48 10:44 Wound Center Nurse 2 #1 L Medial LE -Time 10:48 -Correct Patient Yes No -Correct Side, Site, Position Yes No -Correct Procedure Yes No -Procedure Performed Yes No -Type of Procedure Debridement -Clinical Debridement Subcutaneous -Tissue Removed Subcutaneous -Post Debridement (cm) - Length 0.3 0 -Post Debridement (cm) - Width 0.3 0 -Post Debridement (cm) - Depth 0.2 0 -Total Square (Post) (cm) 0.09 0 -Area of Debridement (cm) - Length 0.3 0 -Area of Debridement (cm) - Width 0.3 0 -Total Square (Area) (cm) 0.09 0 -Tunneling No -Undermining/Tunneling No -Circular Undermining No -Wound/Ulcer Outcome Not Healed Healed- Epithelialized -Ulcer Cleansing Rinsed/ Irrigated with Saline -Foul Odor after Cleansing No -Bioengineered Tissue Yes -Type of Bioengineered Tissue [place] -Type of Bioengineered Tissue -Expiration Date 01/24/28 -Product Lot Number [id number] -Percent Used 100 -Lot number of Saline Used [id number] -Bleeding Controlled with Pressure -Treatment Response Procedure Tolerated Well -Offloading No -Debridement - Subq, 1st 20sq cm No -Apply Skin Sub - 1st 25 sq cm - Legs 1 -Theraskin (per sq cm) -Theraskin - 3TS (3 SQ CM) (per sq cm) 3 Pain Scale: 0-10 Numeric Is Patient Pain Free? Yes Yes - Nurse 3 - General Ulcer D/C NN Start: 09/14/23 10:17 Freq: Status: Active Protocol: Activity Type Activity Date Activity User E-sign Co-sign Detail Recorded Client Recorded Date Recorded By Document 09/14/23 11:23 [employer] Desktop 09/14/23 11:24 [employer] Document 09/21/23 10:54 KW Desktop 09/21/23 10:55 KW Document 09/28/23 11:10 KW Desktop 09/28/23 11:12 KW Document 10/05/23 10:52 KW Desktop 10/05/23 10:53 KW Document 10/12/23 10:45 [employer] Laptop 10/12/23 10:47 09/14/23 09/21/23 09/28/23 11:23 10:54 11:10 Wound Care Center Nurse 3 #1 L Medial LE -Primary Dressing Applied Mepilex Border Mepilex Border -Other Dressing theraskin; -Primary Dressing Covered/Secured with Dry Gauze & Roll Gauze, Secured with Tape -Other Covering leg lotioned -Mepilex Border 1 1 Left -Tubular Bandage Single Layer Single Layer Single Layer -Size of Tubigrip Used Size D Size D Size D -Size D ($) 1 1 1 Treatment Response Procedure Tolerated Well Pain Scale: 0-10 Numeric Is Patient Pain Free? Yes Yes Yes - Visit Discharge Discharge Condition Stable Stable Stable Ambulatory Status Ambulatory Ambulatory Transportation Private Auto Private Auto Private Auto Medication Reconcilliation completed & No No provided to patient/care provider Clinical Summary of Care Provided Yes Yes 10/05/23 10/12/23 10:52 10:45 Wound Care Center Nurse 3 #1 L Medial LE -Primary Dressing Applied -Other Dressing -Primary Dressing Covered/Secured with Dry Gauze & Roll Gauze, Secured with Tape -Other Covering -Mepilex Border Left -Tubular Bandage Single Layer Single Layer -Size of Tubigrip Used Size D Size D -Size D ($) 1 1 Treatment Response Pain Scale: 0-10 Numeric Is Patient Pain Free? Yes Yes WC - Visit Discharge Discharge Condition Stable Stable Ambulatory Status Ambulatory Ambulatory Transportation Private Auto Private Auto Medication Reconcilliation completed & No Yes provided to patient/care provider Clinical Summary of Care Provided Yes Yes Assessment/Plan Assessment/Plan (1) 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 All findings were discussed with the patient. All questions were answered to the patient's satisfaction. The patient's left lower extremity full-thickness ulceration is now healed after application of TheraSkin. The patient will continue to compress her left lower extremity. She is okay to apply lotion to her leg as well as shower but not soak her left lower extremity. Educated the patient that the skin is very sensitive and easily can open up to a new full-thickness wound if she bumps or scratches the area. She was understanding of that. She will continue to monitor her left lower extremity and follow-up in office in 2 weeks. Follow-up at the wound care center with Dr. Salas in 2 week. (2) PVD (peripheral vascular disease): CODE(S): I73.9 - Peripheral vascular disease, unspecified (3) Pain in left leg: CODE(S): M79.605 - Pain in left leg
== END 2023-10-12 23:59 | disposition home or self-care (01) ==
LOC: WC 10:30
PROVIDERS: PCP Internal Medicine; Referring Provider Internal Medicine; Visit Provider Podiatrist Foot & Ankle Surgery
DX: L97.822 Non-pressure chronic ulcer of other part of left lower leg with fat layer exposed (principal); I73.9 Peripheral vascular disease, unspecified; R60.0 Localized edema; M79.605 Pain in left leg
CPT/HCPCS: 15271; 99213; Q4121; G0463

== ENCOUNTER 2023-10-26 10:21 | Outpatient (RCR) | payer MEDICARE, OTHER, SELFPAY ==
[2023-10-13 00:21] VITALS: BP 124/48; PULSE 83; RESP 18; TEMP 36.4
[2023-10-26 10:26] VITALS: BP 122/57; PULSE 61; RESP 18; TEMP 36.2
--- NOTE | 2023-10-26 12:01 | PCM.WC.PN ---
History of Present Illness Date of Service: 10/26/23 Chief Complaint: Left leg ulceration History of Wound: Left leg ulceration Subjective Subjective Mrs. Mathis is a 77-year-old female presenting to clinic today for follow-up evaluation of left full-thickness ulceration and application of skin graft substitute, TheraSkin. Patient has left her skin graft substitute clean dry and intact. She denies any strikethrough. She has left her dressing clean dry and intact. She denies trauma. Denies constitutional symptoms. No other pedal complaints at this time. Objective Data Objective Data Vital Signs: Vital Signs Temp Pulse Resp BP 97.2 F L 61 18 122/57 H 10/26/23 10:26 10/26/23 10:26 10/26/23 10:26 10/26/23 10:26 Weight: 53.524 kg Body Mass Index (BMI) 0.0 Physical Exam Narrative Vascular: DP and PT pulses are palpable. CFT is brisk. Evidence of varicose is appreciated bilateral lower extremity. Nonpitting edema appreciated bilateral lower extremity. Neurological: Light touch intact. Patient response to painful stimuli. Dermatological: Evidence of healed incision proximal and distal to the full-thickness ulceration to the left leg. 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 Full-thickness ulceration to the medial aspect of the left leg is healed. Musculoskeletal: Pain with palpation to the full-thickness ulceration to the left leg. Palpable calcification appreciated to the bilateral lower extremity. No pain with calf compression bilateral Debridement Note Debridement Note Post-Debridement Measurements and Additional Note: Post-Debridement Measurements/Treatment - Nurse 1 - General Ulcer Assessment Start: 10/26/23 10:25 Freq: Status: Active Protocol: [email or web address].[email or web address] Activity Type Activity Date Activity User E-sign Co-sign Detail Recorded Client Recorded Date Recorded By Document 10/26/23 10:26 DL Desktop 10/26/23 10:35 DL 10/26/23 10:26 - Today's Visit Information Type of service Follow-up Visit (Physician/VIRTUALIZATION ARCHITECT ) Arrival Mode Ambulatory Transfer Assistance None Patient Identification Verified (Name & Yes ) Patient Requires Transmission-Based No Precautions Height and Weight Body Mass Index (BMI) 0.0 BMI Classification Underweight Vital Signs Temperature (97.8 F-99.1 F) 97.2 F L Temperature Source Temporal Pulse Rate (60-100) 61 Pulse Location Monitor Respiratory Rate (12-18) 18 Respiratory rate source Observation Blood Pressure (90/60-120/80) 122/57 H Blood Pressure Mean (mm Hg) 78 Source Monitor History Since Last Visit- (Skip if this is Patient's initial visit) Have you changed medications since your No last visit? Any new allergies or adverse reactions No Had a fall/change in ADL's that may No increase risk of falls Signs or symptoms of abuse and/or No neglect since last visit Have you been in the hospital since your No last visit? Has dressing in place as prescribed Yes Has compression in place as prescribed Yes Has offloadiing in place as prescribed N/A Experienced any changes in pain level or No management Pain Scale: 0-10 Numeric Is Patient Pain Free? Yes [facility] - Nurse 1 - General Ulcer Measurement Start: 10/26/23 10:25 Freq: Status: Active Protocol: Activity Type Activity Date Activity User E-sign Co-sign Detail Recorded Client Recorded Date Recorded By Document 10/26/23 10:26 DL Desktop 10/26/23 10:35 DL 10/26/23 10:26 Wound Center Nurse 1 #1 L Medial LE -Current Size (cm) - Length 0 -Current Size (cm) - Width 0 -Current Size (cm) - Depth 0 -Total Square Cm 0 -Exudate Amt None Present -Wound Margin Flat & Intact -Granulation Amt Large (67-100%) -Granulation Quality Pale -Necrosis Amt Small (1-33%) -Necrotic Tissue Type Eschar -Structure Exposed N/A -Texture (Isi-wound Skin Appearance) Scarring -Moisture (Isi-wound Skin Appearance) No Abnormality -Color (Isi-wound Skin Appearance) No Abnormality -Temperature (Isi-wound Skin No Abnormality Appearance) (Pt Warm) -Tenderness on Palpation (Isi-wound No Skin Appearance) -Ulcer Cleansing Rinsed/ Irrigated with Saline -Foul Odor after Cleansing No Left Calf (cm) 31.8 Left Ankle (cm) 18.6 [facility] - Nurse 2 - General Ulcer CM Notes Start: 10/26/23 10:25 Freq: Status: Active Protocol: Activity Type Activity Date Activity User E-sign Co-sign Detail Recorded Client Recorded Date Recorded By Document 10/26/23 10:46 [employer] Laptop 10/26/23 10:47 [employer] 10/26/23 10:46 Wound Center Nurse 2 #1 L Medial LE -Correct Patient No -Correct Side, Site, Position No -Correct Procedure No -Procedure Performed No -Post Debridement (cm) - Length 0 -Post Debridement (cm) - Width 0 -Post Debridement (cm) - Depth 0 -Total Square (Post) (cm) 0 -Area of Debridement (cm) - Length 0 -Area of Debridement (cm) - Width 0 -Total Square (Area) (cm) 0 -Wound/Ulcer Outcome Healed- Epithelialized Pain Scale: 0-10 Numeric Is Patient Pain Free? Yes - Nurse 3 - General Ulcer D/C NN Start: 10/26/23 10:25 Freq: Status: Active Protocol: Activity Type Activity Date Activity User E-sign Co-sign Detail Recorded Client Recorded Date Recorded By Document 10/26/23 10:47 Laptop 10/26/23 10:47 10/26/23 10:47 Is Patient Pain Free? 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 All findings were discussed with the patient. All questions were answered to the patient's satisfaction. The patient's full-thickness ulceration to the left leg is now healed and. Patient is grateful for her care. Educated the patient to continue to wash and apply lotion to the left lower extremity and will watch out for any bumps and/or cuts to the leg. The patient was understanding of this. He was also further educated the patient that if she injures herself to the left leg at the area of the wound she is to come back to the wound care center sooner rather than later. Patient is grateful for her care and will follow-up as needed. (2) PVD (peripheral vascular disease): CODE(S): I73.9 - Peripheral vascular disease, unspecified (3) Pain in left leg: CODE(S): M79.605 - Pain in left leg
== END 2023-10-26 16:06 | disposition home or self-care (01) ==
LOC: WC 10:21
PROVIDERS: PCP Internal Medicine; Referring Provider Internal Medicine; Visit Provider Podiatrist Foot & Ankle Surgery
DX: Z09 Encounter for follow-up examination after completed treatment for conditions other than malignant neoplasm (principal); I73.9 Peripheral vascular disease, unspecified; R60.0 Localized edema
CPT/HCPCS: 99213; G0463

== ENCOUNTER → 2023-10-31 | Outpatient (CLI) | payer MEDICARE, OTHER, SELFPAY ==
--- NOTE | 2023-10-31 13:33 | VDLE_ITS ---
Reason For Study: Bilateral leg pain RIGHT LEFT GSV is normal. GSV is normal. CFV is compressible, spontaneous, phasic, CFV is compressible, spontaneous, phasic, competent and demonstrates normal competent, and demonstrates normal augmentation. augmentation. FV is compressible, spontaneous, phasic, FV is compressible, spontaneous, phasic, competent and demonstrates normal competent and demonstrates normal augmentation. augmentation. POP V is compressible, spontaneous, phasic, POP V is compressible, spontaneous, phasic, competent and demonstrates normal competent and demonstrates normal augmentation. augmentation. T/P Trunk is compressible. T/P Trunk is compressible. PTV is compressible. PTV is compressible. RT PerV is compressible. LT PerV is compressible. Procedure This is a venous duplex using B-mode, color flow and spectral Doppler. Exam performed in department. A preliminary report was called and/or faxed to Dr. Salas. VL/Venous Duplex US - Romie Extrem Interpretation Summary Deep veins of the bilateral lower extremities are patent and compressible segme ntally. There is no evidence of bilateral lower extremity deep vein thrombosis. The bilateral great saphenous veins appear patent and compressible segmentally. Ordering Physician: Shen Salas Referring Physician: Rusty Woodard Performed By: Josy Tirado RVT
--- NOTE | 2023-10-31 13:35 | ART_ITS ---
Reason For Study: Bilateral leg pain Procedure A bilateral lower extremity continuous wave Doppler with analog waveform analysis,segmental pressures,and ankle brachial indexes without exercise. Left Segmental Pressures Left brachial= 120mmHg. Left posterior tibial artery = 141mmHg. Left dorsalis pedis artery = 131mmHg. Left digit = 83 mmHg. The left dorsalis pedis waveforms are triphasic. The left posterior tibial artery waveforms are triphasic. Right Segmental Pressures Right brachial= 115mmHg. Right posterior tibial artery = 140mmHg. Right dorsalis pedis artery = 126mmHg. Right digit = 103 mmHg. The right dorsalis pedis waveforms are triphasic. The right posterior tibial artery waveforms are triphasic. Indices The right ankle brachial index by the dorsalis pedis is 1.05. The right ankle brachial index by the posterior tibial artery is 1.17. The right digital-brachial index is 0.86. The left ankle brachial index by the dorsalis pedis is 1.09. The left ankle brachial index by the posterior tibial artery is 1.18. The left digital-brachial index is 0.69. VL/Lower Ext Art Exam w/o Exercis Interpretation Summary Right ELENI 1.17, normal. TBI and Doppler/PVR waveforms of the right leg normal a t rest. Left ELENI 1.18, normal. Doppler/PVR waveforms of the left leg normal at rest. TB I diminished, pedal/digit disease vs spasm Ordering Physician: Shen Salas Referring Physician: Rusty Woodard Performed By: Josy Tirado RVT
== END | disposition home or self-care (01) ==
PROVIDERS: PCP Internal Medicine; Referring Provider Podiatrist Foot & Ankle Surgery; Visit Provider Podiatrist Foot & Ankle Surgery
DX: I73.89 Other specified peripheral vascular diseases (principal); M79.662 Pain in left lower leg; M79.661 Pain in right lower leg
CPT/HCPCS: 93923; 93970

== ENCOUNTER → 2023-11-21 | Outpatient (CLI) | payer MEDICARE, OTHER, SELFPAY ==
--- NOTE | 2023-11-21 16:15 | CT_ITS ---
STUDY: CT SOFT TISSUE NECK WITH CONTRAST REASON FOR EXAM: Female, 78 years old. Malignant neoplasm of tonsil, unspecified. Prior tonsillar resection and radiation treatment. RADIATION DOSAGE (If Supplied By Facility): CTDIvol = ( 8.54 ) mGy, DLP = ( 219.65 ) mGycm TECHNIQUE: The patient was scanned in a multi-detector CT scanner. High resolution transaxial imaging was performed following intravenous administration of IV 75mL Isovue-370. Sagittal and coronal images were reconstructed. Individualized dose optimization techniques were used for this CT. COMPARISON: Comparison is made with prior study dated December 23, 2020. FINDINGS: Normal bilateral parotid glands. Normal bilateral circle edger spaces. Normal bilateral parapharyngeal spaces. Normal bilateral carotid spaces. Normal bilateral sublingual and submandibular glands and spaces. Normal visualized nasopharynx. Normal retropharyngeal space. Normal perivertebral space. The visualized tongue, tongue base and oropharynx are normal. The visualized cervical lymph nodes (levels I-) are within normal size limits, and maintain normal morphology. There is no demonstrated solid or cystic mass lesion. There is no abnormal contrast enhancement. Normal epiglottis, bilateral vallecula and hypopharynx. The pre-epiglottic and paraglottic adipose spaces are normal. Normal visualized bilateral piriform sinuses, aryepiglottic folds, vocal cords, and arytenoid-cricoid articulations. Normal subglottic trachea. Normal bilateral lobes of the thyroid gland. Stable appearance of the lung apices demonstrating evidence of a scarring and emphysematous changes. Normal visualized paranasal sinuses. There is degenerative changes of the cervical spine. CT/Soft Tissue Neck WITH Contrast IMPRESSION: Stable examination. No evidence of recurrence. Electronically Signed: Cullen Tucker MD at 12:21 EDT ,
[2023-11-21 16:40] LABS: CREATININE FINGERSTICK < 1.0 mg/dL (0.55-1.02)
--- OUTSIDE RECORDS SUMMARY | 2023-11-21 21:11 | XMS RPT_ITS | CCD ---
Author Name Unknown Address [address] [place] [address] Organization [facility] Care Team Providers Care Cloth Beamer Name Role Phone RUSTY AVENDANO MD Consulting Unavailable Tsering FLORES Attending Unavailable Tsering FLORES Admitting Unavailable Tsering FLORES Primary Care Unavailable PROVIDER, UNKNOWN Consulting Unavailable PROVIDER, UNKNOWN Consulting Unavailable PROVIDER, UNKNOWN Consulting Unavailable Results Test Name Value Interpretation Reference Range Facil ity Encounters Encounter Date Encounter Type Care Provider Facility Start: 07-26-2023 End: 07-26-2023 ambulatory RUSTY AVENDANO [facility] Procedures Date Procedure Procedure Detail Performing Clinician Start: 05-22-2023 Urinalysis RUSTY BELLA Payers Date Payer Category Payer Medicare [id number] 1945 Unknown [id number] Medicare [id number] Clinical Note 06-16-2023 Note Date & Type Note Facility 06-16-2023 Note . MICRO - Microbiology PROCEDURE: Culture Wound Aerobic with Gram Stain [O1 *1] SOURCE: Wound (surface) BODY SITE: Leg L COLLECTED DATE/TIME: 06/11/2023 21:20 EDT RECEIVED DATE/TIME: 06/13/2023 16:26 EDT START DATE/TIME: 06/13/2023 16:27 EDT FREE TEXT SOURCE: FINAL REPORTS Final Report [] Verified Date/Time/Personnel: 06/16/2023 08:27 EDT Moderate Staphylococcus aureus This staphylococci is presumed to be resistant to clindamycin based on the detection of inducible clindamycin resistance. Clindamycin may still be effective in some patients. Heavy normal skin mickie present. Sensitivity testing not indicated. PRELIMINARY REPORTS Preliminary Report [] Verified Date/Time/Personnel: 06/15/2023 09:47 EDT Moderate Staphylococcus aureus MAGY to follow Heavy normal skin mickie present. Sensitivity testing not indicated. Preliminary Report [] Verified Date/Time/Personnel: 06/14/2023 09:58 EDT Culture results pending. STAINS GS [] Verified Date/Time/Personnel: 06/13/2023 17:39 EDT Rare Polymorphonuclear cells 4+ Gram Positive Cocci SUSCEPTIBILITY RESULTS Staphylococcus aureus Antibiotic MAGY Dilut MAGY Inter Ampicillin/ <=8/4 Susceptible Sulbactam Azithromycin >4 Resistant Cefepime <=4 Susceptible Cefotaxime <=8 Susceptible Ceftaroline <=0.5 Susceptible Ceftriaxone <=4 Susceptible Ciprofloxacin <=1 Susceptible Clindamycin Resistant Erythromycin >4 Resistant Imipenem <=4 Susceptible Levofloxacin <=1 Susceptible Meropenem <=2 Susceptible Oxacillin <=0.25 Susceptible Penicillin <=0.03 Susceptible Piperacillin/ <=8 Susceptible Tazobactam Tetracycline <=4 Susceptible Trimethoprim/ <=0.5/9.5 Susceptible Sulfa Vancomycin 0.5 Susceptible MICRO - Microbiology Order Comments O1: Culture Wound Aerobic with Gram Stain p/c to [facility] for wound site spoke w/ Ciera fax [phone] Performing Locations *1: This test was performed at: [facility], [address] [place] [address], [address] [place] [address] ([place]) History and physical note 05-26-2023 Note Date & Type Note Facility 05-26-2023 Note [facility] HISTORY & PHYSICAL NAME ACCOUNT SEX AGE ADMIT DISCHARGE PT MED. RECORD# NUMBER DATE DATE TYPE DIANA, [id number] F 77 05/22/23 05/23/23 2 KENRICK [id number] ROOM: [id number] DATE OF : 45 DICTATING PHYSICIAN: Rusty Avendano HISTORY & PHYSICAL/DISCHARGE SUMMARY CHIEF COMPLAINT: Hypertension and chest pain. HISTORY OF PRESENT ILLNESS: The patient is a pleasant 77-year-old lady with a past medical history significant for anxiety, osteoarthritis, and hypercholesterolemia who was in her usual state of health until the last 4-5 days when she started not feeling well. Eventually she checked her blood pressure, and she was getting a systolic in the 170s and 180s. She checked her blood pressure multiple times with the results being the same. Then she started having chest pain, a left-sided pressure feeling radiating to the left side of the neck and left upper extremity. No shortness of breath. No palpitations. No nausea. She was concerned and presented to the Emergency Room for evaluation. In the Emergency Room, work-up included laboratories which showed an elevated d-dimer, and the patient underwent a CT scan of the chest with PE protocol, and that was negative for PE. The patient was admitted for further evaluation and treatment. During the hospital stay, she was feeling fairly well. Myocardial infarction was ruled out with serial enzymes and serial EKGs, and the patient underwent a stress test this morning, which was negative. When I saw the patient earlier today, she complained of having neck pain in addition to the chest pain. A cervical spine x-ray was done and showed mild degenerative changes of the spine are present with mild foraminal narrowing at the level of C4-C5. PAST MEDICAL HISTORY: (1) Anxiety. (2) Asthma. (3) Degenerative joint disease of the cervical spine. (4) Diverticulosis. (5) Intermittent dysphagia. (6) Erythema nodosum. (7) GERD. (8) History of tonsil cancer. (9) Hypertension. (10) Hypercholesterolemia. (11) Hypothyroidism. (12) Lipodermatosclerosis. (13) Migraine headache. (14) Multiple thyroid nodules. (15) Narrowing of the intervertebral disc space. (16) Obstructive sleep apnea, mild with RDI of 14.6 diagnosed with polysomnogram back in July 2004. The patient declined treatment. (17) Varicose veins. (18) Vitamin D deficiency. PAST SURGICAL HISTORY: (1) Biopsy from the right posterior ankle. (2) Bilateral cataract extraction in 2020. (3) Cholecystectomy. (4) Colon surgery in 2005, including anterior proctosigmoidectomy with colorectal anastomosis done secondary to symptomatic diverticular disease. (5) Abdominal hysterectomy. (6) Right inguinal hernia repair. (7) Right total knee replacement and revision of right total knee replacement of Page 1 of 4 KENRICK ORTIZ History & Physical KENRICK ORTIZ :1945 all components. (8) Right eye laser surgery. (9) Rectal prolapse repair in 2009. (10) Right shoulder arthroscopy. (11) Tonsillectomy secondary to tonsil cancer. (12) Bilateral total knee replacements. (13) Tubal ligation. (14) Bilateral vein surgery. MEDICATIONS: (1) Albuterol HFA 2 puffs 4 times daily p.r.n. (2) Pantoprazole 40 mg daily. (3) Montelukast 10 mg daily. (4) Levothyroxine 112 mcg daily. (5) Aspirin enteric coated 81 mg daily. (6) Oxybutynin ER 10 mg daily. (7) Pentoxifylline ER 400 mg t.i.d. (8) Vitamin D3 5000 units daily. (9) Citracal daily. ALLERGIES: No known drug allergies. FAMILY HISTORY: Father from emphysema. He also had hypertension. Mother from emphysema and sepsis. She had Parkinson's disease and hypertension. A sister from lung cancer. SOCIAL HISTORY: The patient is a . She had 2 children. One is living, and a son from sepsis. He was paraplegic secondary to an accident. She used to smoke. She quit smoking in 1997. She does not drink any alcohol. REVIEW OF SYSTEMS: The patient denies any dizziness, lightheadedness or headaches. She complained of having chest pain, left-sided, with radiation to the left side of the neck and left upper extremity. She denies any shortness of breath. No palpitations. She complains of having neck pain. No GI or symptoms. No lower extremity edema. The rest of the review of systems were discussed with the patient, and they were negative. PHYSICAL EXAMINATION GENERAL APPEARANCE: The patient was sitting in a recliner chair comfortably, in no acute distress, well-developed, well-nourished. VITAL SIGNS: Blood pressure is 152/88, heart rate 78, respiratory rate 19, temperature 97.7, and oxygen saturation 99% on room air. SKIN: Warm and dry. HEENT: Unremarkable. NECK: Supple. No nodes. No masses. No JVD. No carotid bruit. No thyroid enlargement. LUNGS: Lungs are symmetrical with equal lung expansion and clear to auscultation. Respiratory effort is normal. HEART: Regular rate and rhythm. I coul (more content not included)... [facility] Summary Purpose Family History No Family History Records FoundNo Family History Records FoundNo Family History Records FoundNo Family History Records Found Advance Directives No Advanced Directives Records FoundNo Advanced Directives Records FoundNo Advanced Directives Records FoundNo Advanced Directives Records Found Additional Source Comments INFORMATION SOURCE (unrecogn ized section and content) DATE CREATED AUTHOR AUTHOR'S ORGANIZ ATION 06/18/2023 Pending sale to [facility] ([place]) DATE CREATED AUTHOR AUTHOR'S ORGANIZ ATION 10/09/2023 [facility] DATE CREATED AUTHOR AUTHOR'S ORGANIZ ATION 10/09/2023 [facility] FOR RECORDS PERTAINING TO PATIENTS WHO ARE OR HAVE BEEN ENROLLED IN A CHEMICAL DEPENDENCY/SUBSTANCEABUSE PROGRAM, SOME INFORMATION MAY BE OMITTED. This clinical summary was aggregated from multiple sources. Caution should be exercised in using it in the provision of clinical care. This summary normalizes information from multiple sources, and as a consequence, information in this document may materially change the coding, format and clinical context of patient data. In addition, data may be omitted in some cases. CLINICAL DECISIONS SHOULD BE BASED ON THE PRIMARY CLINICAL RECORDS. [facility] [employer] [facility]. provides no warranty or guarantee of the accuracy or completeness of information in this document.
== END | disposition home or self-care (01) ==
LOC: CT 16:14
PROVIDERS: PCP Internal Medicine; Referring Provider Otolaryngology; Visit Provider Otolaryngology
DX: R07.0 Pain in throat (principal); C09.9 Malignant neoplasm of tonsil, unspecified
CPT/HCPCS: 70491; Q9967

== ENCOUNTER → 2023-11-22 | Outpatient (CLI) | payer MEDICARE, OTHER, SELFPAY ==
--- OUTSIDE RECORDS SUMMARY | 2023-11-22 07:29 | XMS RPT_ITS | CCD ---
Author Name Unknown Address [address] [place] [address] Organization [facility] Care Team Providers Care Physical Therapy Technician Name Role Phone RUSTY AVENDANO MD Consulting Unavailable Tsering FLORES Attending Unavailable Tsering FLORES Admitting Unavailable Tsering FLORES Primary Care Unavailable PROVIDER, UNKNOWN Consulting Unavailable PROVIDER, UNKNOWN Consulting Unavailable PROVIDER, UNKNOWN Consulting Unavailable Results Test Name Value Interpretation Reference Range Facil ity Encounters Encounter Date Encounter Type Care Provider Facility Start: 07-26-2023 End: 07-26-2023 ambulatory RUSTY AVENDANO [facility] Procedures Date Procedure Procedure Detail Performing Clinician Start: 05-22-2023 Urinalysis RUSTY BELLA Payers Date Payer Category Payer Medicare [id number] 1945 Unknown [id number] Medicare [id number] Clinical Note 06-16-2023 Note Date & Type [...] for wound site spoke w/ Ciera fax [phone] Performing Locations *1: This test was performed at: [facility], [address] [place] [address], [address] [place] [address] ([place]) History and physical note 05-26-2023 Note Date & Type Note Facility 05-26-2023 Note [facility] HISTORY & PHYSICAL NAME ACCOUNT SEX AGE ADMIT DISCHARGE PT MED. RECORD# NUMBER DATE DATE TYPE DIANA, [id number] F 77 05/22/23 05/23/23 2 KENRICK [id number] ROOM: 303MO DATE OF : 45 DICTATING [...] rhythm. I coul (more content not included)... [facility] Summary Purpose Family History No Family History Records FoundNo Family History Records FoundNo Family History Records FoundNo Family History Records Found Advance Directives No Advanced Directives Records FoundNo Advanced Directives Records FoundNo Advanced Directives Records FoundNo Advanced Directives Records Found Additional Source Comments INFORMATION SOURCE (unrecogn ized section and content) DATE CREATED AUTHOR AUTHOR'S ORGANIZ ATION 06/18/2023 [facility] ([place] DATE CREATED AUTHOR AUTHOR'S ORGANIZ ATION 10/09/2023 [facility] DATE CREATED AUTHOR AUTHOR'S ORGANIZ ATION 10/09/2023 [facility] FOR RECORDS PERTAINING TO PATIENTS WHO [...] BE BASED ON THE PRIMARY CLINICAL RECORDS. [facility] [employer] [facility]. provides no warranty or guarantee of the accuracy or completeness of information in this document.
--- NOTE | 2023-11-22 08:00 | PET_ITS ---
EXAMINATION: FDG PET/CT ? INDICATIONS: 78-year-old female with a history of head and neck carcinoma, presenting for restaging examination. ? COMPARISON EXAMINATION: FDG-PET CT study report dated 11/27/2018. ? TECHNIQUE: Following the intravenous administration of 14.81 mCi of F-18 deoxyglucose via the left antecubital fossa, multiplanar image acquisitions of the head, neck, chest, abdomen and pelvis to the level of the midthigh, obtained at one-hour post radiopharmaceutical administration contemporaneously interpreted with the current CT of the chest, abdomen and pelvis dated 11/22/2023 and prior FDG-PET CT study dated 11/27/2018 via coregistration reveal: ? SERUM GLUCOSE LEVEL:? 78 mg/dL? HEIGHT:?? 62 inches WEIGHT:?? 121 pounds ? FINDINGS: ? HEAD/NECK:? There is no evidence of abnormal increased glucose metabolism in the pharyngeal mucosal space, parapharyngeal space, oropharynx, bilateral-lateral and anterior neck, hypopharynx and distribution of the larynx. ? The visualized portion of the cerebral cortical-subcortical structures demonstrate symmetric and preserved glucose metabolism. ? CHEST:? There is no quantitative scintigraphic evidence of abnormal increased glucose metabolism within the context of the bilateral hemithorax pulmonary parenchyma, right and left hemithorax at the pleural interface, mediastinal structures, and left-right thoracic perihilum. ? CT of the chest demonstrates the following anatomic characteristics: Postsurgical changes defined in the bilateral upper lung quiñonez reveal no evidence of quantitatively significant increased FDG uptake. Atherosclerotic calcification is defined in the thoracic aorta without evidence of dilatation, aneurysm formation. Coronary arterial calcification is observed. ? ABDOMEN/PELVIS:? Normal physiologic distribution of the radiopharmaceutical is identified in the hepatic and splenic parenchyma, both renal units, urinary bladder, and visualized intestinal tract. ? CT of the abdomen and pelvis is remarkable for the following: Prominent collecting system activity is noted in the right renal unit. ? SKELETAL:? 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 Accentuation of the kyphotic curve is demonstrated. ? Degenerative changes defined in the thoracic and lumbar spine demonstrate no evidence of increased glucose metabolism. There are no sclerotic, mixed sclerotic-lytic, or primarily lytic changes defined in the axial skeletal structures with evidence of increased FDG uptake. ? PET/PET/CT Tumor Base -Thigh Subs IMPRESSION: 1. NEGATIVE EXAMINATION. There is no definitive quantitatively significant scintigraphic evidence of recurrent-viable neoplasm. 2. Increased radiopharmaceutical concentration defined in the right proximal humerus is most consistent with subchondral bone cyst. Correlation with plain film radiography may be of benefit. Electronic Signature Sean Wing D.O. Accurate Quantification of SUVs for this report are calculated using the exclusive [employer]. ([place].S. Patent No. [phone] [id number] B2 [phone] [place] patent [phone]). Standardization and correction of the FDG SUV metric via [employer] technology allow for vendor non-specific objective quantitative examination comparison and optimization of the sensitivity and specificity of the FDG PET-CT examination. . [email or web address] Electronically Signed: Sean Wing DO at 23:48 EDT ,
== END | disposition home or self-care (01) ==
LOC: ONC 07:20
PROVIDERS: PCP Internal Medicine; Referring Provider Otolaryngology; Visit Provider Otolaryngology
DX: C09.9 Malignant neoplasm of tonsil, unspecified (principal); R07.0 Pain in throat
CPT/HCPCS: 78815; A9552

== ENCOUNTER → 2024-02-02 | Outpatient (CLI) | payer MEDICARE, OTHER, SELFPAY ==
[2024-02-02 12:43] LABS: Erythrocyte Sedimentation Rate 12 mm/hr (0-30)
[2024-02-02 12:45] LABS: Absolute Lymphocyte Count 1.02 X10^3/uL (0.83-4.51); Absolute Neutrophil Count 4.8 X10^3/uL (2.0-7.7); Basophil# 0.03 X10^3/uL; Basophil% 0.5 % (0-1); Eosinophil# 0.03 X10^3/uL; Eosinophils% 0.5 % (0-5); Hematocrit 40.4 % (37-47); Lymphocyte # 1.02 X10^3/ul (0.83-4.51); Lymphocyte % 15.8 % (19-41); Mean Corp Hgb Conc 32.2 g/dL (32-36); Mean Corpuscular Hgb 30.9 pg (27.0-32.0); Mean Platelet Vol. 10.2 fl (6.2-12.0); Monocyte# 0.53 X10^3/uL; Monocyte% 8.2 % (0-10); NRBC Flagged by Analyzer 0 % (0-5); Neutrophil # 4.83 X10^3/uL (2.7-7.7); Neutrophil % 74.7 % (47-70); Platelet Count 236 K/mm3 (150-450); RBC Distribution Width CV 14.5 % (11.6-14.6); RBC Distribution Width SD 50.9 fl (35.1-43.9); Red Blood Count 4.21 M/mm3 (4.2-5.4); White Blood Count 6.5 K/mm3 (4.4-11.0)
[2024-02-02 13:10] LABS: Anion Gap 6 (5-15); BUN 25 mg/dL (7-18); BUN/Creat Ratio 44.8 RATIO (10-20); CRP 4.45 mg/L (0.0-3.0); Calcium,Total 9.6 mg/dL (8.5-10.1); Chloride 106 mmol/L (98-107); Creatinine, Serum 0.56 mg/dL (0.55-1.02); EST Glomerular Filtration Rate 112 mL/min (>60); Est Glom Filt Rate - Afr Amer 135 mL/min (>60); Glucose 90 mg/dL (74-106); Sodium Level 138 mmol/L (136-145); Uric Acid 3.2 mg/dL (2.6-6.0)
== END | disposition home or self-care (01) ==
PROVIDERS: PCP Internal Medicine; Referring Provider Podiatrist Foot & Ankle Surgery; Visit Provider Podiatrist Foot & Ankle Surgery
DX: M10.00 Idiopathic gout, unspecified site (principal); L03.90 Cellulitis, unspecified
CPT/HCPCS: 36415; 80048; 84550; 85025; 85652; 86140

== ENCOUNTER → 2025-05-14 | Outpatient (CLI) | payer MEDICARE, OTHER, SELFPAY | END | disposition home or self-care (01) | LOC: LABSPEC 15:59 | PROVIDERS: PCP Internal Medicine; Referring Provider Urology; Visit Provider Urology | DX: N30.00 Acute cystitis without hematuria (principal) | CPT/HCPCS: 87077; 87086; 87088; 87186 ==